=== PATIENT | female | born 1955 | race Caucasian/White ===

== ENCOUNTER → 2017-02-08 | Outpatient (CLI) | payer OTHER ==
--- NOTE | 2017-02-11 13:07 | MM ---
Reason for exam: screening (asymptomatic). Last mammogram was performed 2 years and 4 months ago. History: Patient is postmenopausal. Physical Findings: A clinical breast exam by your physician is recommended on an annual basis and results should be correlated with mammographic findings. MG Screening Mammo w CAD Bilateral CC and MLO view(s) were taken. Prior study comparison: October 16, 2014, mammogram, performed at [facility]. There are scattered fibroglandular densities. Benign calcifications in the right breast. There is no discrete abnormality. ASSESSMENT: Benign, BI-RAD 2 RECOMMENDATION: Routine screening mammogram of both breasts in 1 year.
== END ==
LOC: RADMAMWWP 14:27
PROVIDERS: ATTEND Family Medicine
DX: Z12.31 Encounter for screening mammogram for malignant neoplasm of breast (principal)

== ENCOUNTER → 2018-02-10 | Outpatient (CLI) | payer OTHER ==
--- NOTE | 2018-02-13 11:09 | MM ---
Reason for exam: screening (asymptomatic). Last mammogram was performed 1 year ago. History: Patient is postmenopausal. Physical Findings: A clinical breast exam by your physician is recommended on an annual basis and results should be correlated with mammographic findings. MG Screening Mammo w CAD Bilateral CC and MLO view(s) were taken. Prior study comparison: February 08, 2017, bilateral MG screening mammo w CAD. October 16, 2014, mammogram, performed at [facility]. There are scattered fibroglandular densities. Finding: There are typically benign round calcifications in the right breast. There is no discrete abnormality. ASSESSMENT: Benign, BI-RAD 2 RECOMMENDATION: Routine screening mammogram of both breasts in 1 year.
== END | disposition home or self-care (01) ==
LOC: RADMAMWWP 11:26
PROVIDERS: ATTEND Family Medicine
DX: Z12.31 Encounter for screening mammogram for malignant neoplasm of breast (principal)
CPT/HCPCS: 77067

== ENCOUNTER → 2018-08-23 | Outpatient (CLI) | payer MEDICARE, OTHER ==
--- NOTE | 2018-08-23 15:46 | US ---
EXAMINATION TYPE: US abdomen complete DATE OF EXAM: 08/23/2018 COMPARISON: NONE CLINICAL HISTORY: 63-year-old female R10.9 ABD PAIN. Intermittent right flank discomfort x couple mon ths TECHNIQUE: Multiple sonographic images of the abdomen are obtained. FINDINGS: EXAM MEASUREMENTS: Liver Length: 13.6 cm Gallbladder Wall: 0.2 cm CBD: 0.3 cm Spleen: 8.6 cm Right Kidney: 10.1 x 4.9 x 4.7 cm Left Kidney: 11.4 x 4.8 x 4.6 cm Pancreas: visualized portions wnl, the pancreatic tail is obscured by overlying midline bowel gas Liver: Coarsened appearance which may be technical. No focal lesion seen. Gallbladder: 0.4cm adherent hyperechoic focus along anterior wall, probable polyp. No abnormal gallb ladder distention, wall thickening, or pericholecystic fluid. Evidence for sonographic Chatterjee's sign: no CBD: visualized portions wnl, limited by overlying bowel gas Spleen: Detailed assessment limited by overlying bowel gas Right Kidney: Moderate hydronephrosis Left Kidney: wnl Upper IVC: wnl Abd Aorta: wnl IMPRESSION: 1. Moderate right-sided hydronephrosis. Etiology and duration uncertain based on this exam. Consider further CT evaluation. 2. Findings suggest a 4 mm gallbladder wall polyp. Six-month follow-up gallbladder ultrasound to luz maria enriquez.
--- NOTE | 2018-08-23 15:49 | US ---
EXAMINATION TYPE: US pelvic complete DATE OF EXAM: 08/23/2018 COMPARISON: NONE CLINICAL HISTORY: 63-year-old female R10.9 ABD PAIN. Intermittent right flank discomfort x couple mon ths, 2, para 1, 1 TECHNIQUE: Transabdominal sonographic images of the pelvis were acquired. Transvaginal sonographic images were medically necessary to better assess the following anatomy: uterus and ovaries Date of LMP: 15 years ago FINDINGS: EXAM MEASUREMENTS: Uterus: 5.0 x 3.4 x 4.1 cm Endometrial Stripe: 0.4 cm Right Ovary: not seen Left Ovary: not seen 1. Uterus: retroverted 2. Endometrium: wnl 3. Right Ovary: not seen due to overlying bowel gas 4. Left Ovary: not seen due to overlying bowel gas 5. Bilateral Adnexa: wnl 6. Posterior cul-de-sac: wnl IMPRESSION: Retroverted uterus. Endometrial stripe of 4 mm which is normal for a postmenopausal female. Neither o vary could be visualized. No pelvic free fluid. Note that this exam does not assess the bladder.
== END | disposition home or self-care (01) ==
LOC: RADUSWWP 09:19
PROVIDERS: ATTEND Family Medicine
DX: N13.30 Unspecified hydronephrosis (principal); N85.4 Malposition of uterus
CPT/HCPCS: 76700; 76830; 76856

== ENCOUNTER → 2018-09-29 | Outpatient (CLI) | payer MEDICARE, OTHER ==
--- NOTE | 2018-09-29 16:51 | BD ---
EXAMINATION TYPE: Axial Bone Density DATE OF EXAM: 09/29/2018 COMPARISON: NONE CLINICAL HISTORY: Height: 64.5 Weight: 138.6 FRAX RISK QUESTIONS: Alcohol (3 or more units per day): no Family History (Parent hip fracture): no Glucocorticoids (More than 3mos): no (Ex: prednisone, prednisolone, methylprednisolone, dexamethasone, and hydrocortisone). History of Fracture in Adulthood: no Secondary Osteoporosis: 1. Type 1 Diabetes: no 2. Hyperthyroidism: no 3. Menopause before 45: no 4. Malnutrition: no 5. Chronic liver disease: no Rheumatoid Arthritis: no Current Tobacco Use: yes RISK FACTORS HISTORY OF: Family History of Osteoporosis: no Active: yes Diet low in dairy products/other sources of calcium: no Postmenopausal woman: age 53 Lost more than 2 inches in height since high school: no MEDICATIONS: metformin, lipitor, eye vitamin drops Additional History: EXAM MEASUREMENTS: Bone mineral densitometry was performed using the PenBlade System. Bone mineral density as measured about the Lumbar spine is: ----- L1-L4(G/cm2): 1.217 T Score Values are as follows: ----- L2: -0.9 ----- L3: 2.8 ----- L4: 1.6 ----- L1-L4: 0.4 Bone mineral density : baseline Bone mineral density about the R hip (g/cm2): 0.857 Bone mineral density about the L hip (g/cm2): 0.913 T Score values are as follows: -----R Neck: -1.3 -----L Neck: -0.9 -----R Total: -0.9 -----L Total: -0.9 Bone mineral density : baseline IMPRESSION: Osteopenia (T Score between -2.5 and -1). There is slightly increased risk of fracture and the patient may be considered for treatment. Re-Screen 2-5 years. NOTE: T-SCORE=SD OF THE YOUNG ADULT MEAN.
== END | disposition home or self-care (01) ==
LOC: RADBDWWP 16:03
PROVIDERS: ATTEND Family Medicine
DX: M85.851 Other specified disorders of bone density and structure, right thigh (principal)
CPT/HCPCS: 77080

== ENCOUNTER → 2019-02-16 | Outpatient (CLI) | payer MEDICARE, OTHER ==
--- NOTE | 2019-02-20 14:13 | MM ---
Reason for exam: screening (asymptomatic). Last mammogram was performed 1 year ago. History: Patient is postmenopausal. Cyst aspiration of the right breast. Physical Findings: A clinical breast exam by your physician is recommended on an annual basis and results should be correlated with mammographic findings. MG Screening Mammo w CAD Bilateral CC and MLO view(s) were taken. Prior study comparison: February 10, 2018, bilateral MG screening mammo w CAD. February 08, 2017, bilateral MG screening mammo w CAD. There are scattered fibroglandular densities. Finding: There is a 7 mm equal density (isodense), obscured mass in the subareolar position of the right breast. ASSESSMENT: Incomplete: need additional imaging evaluation, BI-RAD 0 RECOMMENDATION: Special view mammogram of the right breast. If lesion persists on supplemental views, image directed ultrasound is recommended. [facility] will attempt to contact patient to return for supplemental views and ultrasound if indicated.
== END ==
LOC: RADMAMWWP 13:42
PROVIDERS: ATTEND Family Medicine
DX: Z12.31 Encounter for screening mammogram for malignant neoplasm of breast (principal)
CPT/HCPCS: 77067

== ENCOUNTER → 2019-02-22 | Outpatient (CLI) | payer MEDICARE, OTHER ==
--- NOTE | 2019-02-22 10:05 | US ---
EXAMINATION TYPE: US abdomen complete DATE OF EXAM: 02/22/2019 COMPARISON: Abdominal ultrasound dated 08/23/2018 CLINICAL HISTORY: K82.4 Cholesterolosis of Gallbladder. GB polyp EXAM MEASUREMENTS: Liver Length: 14.8 cm Gallbladder Wall: 0.2 cm CHD: 0.2 cm Spleen: 9.0 cm Right Kidney: 10.2 x 4.4 x 4.8 cm Left Kidney: 11.4 x 5.4 x 4.7 cm Pancreas: wnl as visualized Liver: Unremarkable Gallbladder: lesion seen adjacent to wall- 0.4 x 0.4 cm Evidence for sonographic Chatterjee's sign: neg CBD: Obscured by overlying bowel gas CHD: wnl Spleen: wnl Right Kidney: Persistent moderate hydronephrosis is seen on the prior Left Kidney: wnl Upper IVC: wnl Abd Aorta: no AAA visualized The liver is homogenous. The intrahepatic portion of the IVC and proximal abdominal aorta are within normal limits. There is no evidence of cholelithiasis. Common bile duct is unremarkable. The visu alized portions of the pancreas are homogenous. The spleen is unremarkable. No renal lesions are se en. IMPRESSION: 1. Persistent moderate right-sided hydronephrosis unchanged from 2018. Chronic ureteropelvic junction stricture is possible although CT urogram could assess for any other downstream obstructing process such as less likely neoplasm. 2. Unchanged 4 mm gallbladder polyp. Annual surveillance is recommended for polyps of the size.
== END | disposition home or self-care (01) ==
LOC: RADUSWWP 09:11
PROVIDERS: ATTEND Family Medicine
DX: N13.30 Unspecified hydronephrosis (principal); K82.4 Cholesterolosis of gallbladder
CPT/HCPCS: 76700

== ENCOUNTER → 2019-02-28 | Outpatient (CLI) | payer MEDICARE, OTHER ==
--- NOTE | 2019-03-01 09:18 | MM ---
Reason for exam: additional evaluation requested from abnormal screening. Last mammogram was performed less than 1 month ago. History: Patient is postmenopausal. Cyst aspiration of the right breast. Physical Findings: Nurse did not find any significant physical abnormalities on exam. MG 3D Work Up W/Cad RT Spot compression CC, spot compression MLO, and LM view(s) were taken of the right breast. Prior study comparison: February 16, 2019, bilateral MG screening mammo w CAD. February 10, 2018, bilateral MG screening mammo w CAD. There are scattered fibroglandular densities. Finding: There is a persistent equal density (isodense), circumscribed round mass located 2 cm from the skin in the lower inner quadrant, subareolar position of the right breast. These results were verbally communicated with the patient and result sheet given to the patient on 02/28/19. ASSESSMENT: Incomplete: need additional imaging evaluation, BI-RAD 0 RECOMMENDATION: Ultrasound of the right breast.
--- NOTE | 2019-03-01 09:20 | USB ---
Reason for exam: additional evaluation requested from abnormal screening. History: Patient is postmenopausal. Cyst aspiration of the right breast. US Breast Workup Limited RT Right limited breast ultrasound including focal area of concern, retroareolar and axilla demonstrates a 0.3 x 0.9 x 0.3cm oval, irregular, hypoechoic lesion at 8 o'clock, mammographic correlation. These results were verbally communicated with the patient and result sheet given to the patient on 02/28/19. ASSESSMENT: Suspicious, BI-RAD 4 RECOMMENDATION: Ultrasound core biopsy of the right breast. Called Dr. Amaya with mammographic findings and has scheduled an appointment for the patient for 03/30/19 at 3:[address] Han. Patient requested to only schedule consult at this time. PRELIMINARY REPORT CALLED AND FAXED TO DR. HAN ON 03/01/19.
== END | disposition home or self-care (01) ==
LOC: RADMAMWWP 14:11
PROVIDERS: ATTEND Family Medicine
DX: R92.8 Other abnormal and inconclusive findings on diagnostic imaging of breast (principal)
CPT/HCPCS: 77065; 76642; G0279; 77061

== ENCOUNTER → 2019-03-30 | Outpatient (CLI) | payer MEDICARE, OTHER ==
[2019-03-30 15:24] VITALS: BP 148/73; PULSE 75; RESP 16; TEMP 98.2; BMI 21.7
--- NOTE | 2019-03-30 16:26 | P.GSHP ---
History of Present Illness H&P Date: 03/30/19 Chief Complaint: abnormal mammogram and ultraound of the right breast The patient was noted on a screening mammogram to have an area of concern in the right breast, diagnostic mammogram and ultrasound also revealed an area for which biopsy recommended. This was done on 02-28-19. The patient does not feel anything of concern. No hsitory of trauma or infection to the breast. The patient had a breast procedure about 20 years ago, unsure of the side or of what was done. Family History: 1. brother: kidney cancer Hormonal History: menarche: 12 , 1AB, first at 18, breat fed: no menopause: 48 BCP: no hormones: none Past Surgical History: 1. open heart at the age of 6, uncertain what was done 2. breast procedure uncertain what done or which side 3. left arm ? cause Medical History: 1. Diabetes Type 2 2. arthritis Social History: smoke:1/2 PPD 40 years alcohol: none drugs:none - Constitutional Constitutional: Denies chills, Denies fever - EENT Comment: wears glasses Eyes: denies blurred vision, denies pain Ears: bilateral: decreased hearing, deny: tinnitus Ears, nose, mouth and throat: Denies headache, Denies sore throat - Breasts Breasts: bilateral: as per HPI - Cardiovascular Comment: open heart surgery as a child Cardiovascular: Denies chest pain, Denies shortness of breath - Respiratory Comment: smoker - Gastrointestinal Comment: colonoscopy in the past Gastrointestinal: Reports constipation, Denies abdominal pain, Denies diarrhea, Denies nausea, Denies vomiting - Genitourinary (Female) Genitourinary: Denies dysuria, Denies hematuria - Menstruation Menstruation: Reports postmenopausal - Musculoskeletal Comment: arthritis - Integumentary Integumentary: Denies pruritus, Denies rash - Neurological Neurological: Denies numbness, Denies weakness - Psychiatric Psychiatric: Denies anxiety, Denies depression - Endocrine Comment: diabetes - Hematologic/Lymphatic Comment: none - Allergic/Immunologic Allergic/Immunologic: Reports as per HPI Past Medical History Past Medical History: Diabetes Mellitus, GERD/Reflux, Skin Disorder Additional Past Medical History / Comment(s): hx heart murmer as child, allergy induced asthma, constipation,Pompholyx (eczema), hx kidney stones History of Any Multi-Drug Resistant Organisms: None Reported Past Surgical History: Tonsillectomy Additional Past Surgical History / Comment(s): open heart surgery at age 6, Past Anesthesia/Blood Transfusion Reactions: Motion Sickness Past Psychological History: No Psychological Hx Reported Smoking Status: Current every day smoker Past Alcohol Use History: None Reported Past Drug Use History: None Reported - Past Family History Brother(s) Family Medical History: Cancer Medications and Allergies Home Medications Medication Instructions Recorded Confirmed Type Multivitamins, Thera [Theragran] 1 each PO DAILY 10/14/15 03/30/19 History metFORMIN HCL [Glucophage] 500 mg PO BID 10/14/15 03/30/19 History Latanoprost Ophth [Xalatan 0.005%] 1 drops BOTH EYES HS 03/30/19 03/30/19 History Vit C/E/Zn/Coppr/Lutein/Zeaxan 1 each PO 03/30/19 History [Preservision Areds 2 Softgel] Allergies Allergy/AdvReac Type Severity Reaction Status Date / Time tetracycline Allergy Vomiting Verified 03/30/19 15:25 Surgical - Exam Vital Signs Temp Pulse Resp BP Pulse Ox 98.2 F 75 16 148/73 100 03/30/19 15:19 03/30/19 15:19 03/30/19 15:19 03/30/19 15:19 03/30/19 15:19 BMI 21.8 - General well developed, well nourished, no distress - Eyes normal ocular movement - ENT no hearing loss, no congestion - Neck no masses, trachea midline - Respiratory normal respiratory effort, clear to auscultation - Cardiovascular Rhythm: regular Heart Sounds: normal: S1, S2 - Abdomen Abdomen: soft, non tender, no guarding, no rigid, no rebound - Integumentary normal turgor - Neurologic no disoriented, no combative - Musculoskeletal normal gait, normal posture - Psychiatric oriented to time, oriented to person, oriented to place, speech is normal, memory intact breast exam: right breast: no dominate masses of concern, no infection, fibrocystic changes on multipositional exam right axilla: no adenopathy of concern, ptotic left breast: no dominate masses of concern, no infection, fibrocystic changes on multipositional exam, ptotic left axilla: no adenopathy of concern Results mammogram reviewed Assessment and Plan Assessment: Impression: 1. abnormal mammogram 2. abnormal ultrasound 3. asthma 4. smoker 5. arthritis 6. family history of cancer 7. diabetes Risk and benefits of core biopsy discussed with the patient and she wishes to proceed. Plan: 1. ultrasound guided core biopsy of the right breast 2. follow one week after core biopsy 3. medical managment of medical conditions CC: Dr. Amaya
== END ==
LOC: WWCWWP 14:37
PROVIDERS: ATTEND Surgery
DX: Z53.9 Procedure and treatment not carried out, unspecified reason (principal)

== ENCOUNTER 2020-01-29 12:01 | Emergency (ER) | payer MEDICARE, OTHER ==
[2020-01-29 12:06] VITALS: RESP 18; TEMP 98.4
[2020-01-29] MEDS ORDERED: SODIUM CHLORIDE 0.9% 1,000 ML IV STA (12:18)
--- NOTE | 2020-01-29 12:37 | ED ---
General Adult HPI - General Chief complaint: Arrhythmia/Palpitations Stated complaint: Palpitations Time Seen by Provider: 01/29/20 12:09 Source: patient, EMS, RN notes reviewed, old records reviewed Mode of arrival: EMS Limitations: no limitations - History of Present Illness Initial comments: 64-year-old female presenting with intermittent palpitations. No associated pain. Patient does report some dyspnea associated with this. She feels that this could just be anxiety but wanted to be checked out. She reports a normal appetite, no nausea vomiting, no diarrhea, no fever, no URI symptoms. No history of arrhythmia. No history of CAD. - Related Data Home Medications Medication Instructions Recorded Confirmed Multivitamins, Thera [Theragran] 1 each PO DAILY 10/14/15 03/30/19 metFORMIN HCL [Glucophage] 500 mg PO BID 10/14/15 03/30/19 Latanoprost Ophth [Xalatan 0.005%] 1 drops BOTH EYES HS 03/30/19 03/30/19 Vit C/E/Zn/Coppr/Lutein/Zeaxan 1 each PO 03/30/19 [Preservision Areds 2 Softgel] Allergies Allergy/AdvReac Type Severity Reaction Status Date / Time tetracycline Allergy Vomiting Verified 03/30/19 15:25 Review of Systems ROS Statement: Those systems with pertinent positive or pertinent negative responses have been documented in the HPI. ROS Other: All systems not noted in ROS Statement are negative. Past Medical History Past Medical History: Diabetes Mellitus, GERD/Reflux, Skin Disorder Additional Past Medical History / Comment(s): hx heart murmer as child, allergy induced asthma, constipation,Pompholyx (eczema), hx kidney stones History of Any Multi-Drug Resistant Organisms: None Reported Past Surgical History: Tonsillectomy Additional Past Surgical History / Comment(s): open heart surgery at age 6, Past Anesthesia/Blood Transfusion Reactions: Motion Sickness Past Psychological History: No Psychological Hx Reported Smoking Status: Current every day smoker Past Alcohol Use History: None Reported Past Drug Use History: None Reported - Past Family History Brother(s) Family Medical History: Cancer General Exam Limitations: no limitations General appearance: alert, in no apparent distress Head exam: Present: atraumatic, normocephalic Eye exam: Present: normal appearance, PERRL ENT exam: Present: normal exam Neck exam: Present: normal inspection. Absent: tenderness, meningismus Respiratory exam: Present: normal lung sounds bilaterally. Absent: respiratory distress, wheezes Cardiovascular Exam: Present: regular rate, normal rhythm GI/Abdominal exam: Present: soft. Absent: distended, tenderness, guarding, rebound Extremities exam: Present: normal inspection, normal capillary refill. Absent: pedal edema Neurological exam: Present: alert, oriented X3, CN II-XII intact. Absent: motor sensory deficit Psychiatric exam: Present: normal affect, normal mood Skin exam: Present: warm, dry, intact Course Vital Signs 01/29/20 01/29/20 12:02 12:06 Temperature 98.4 F Pulse Rate 70 Pulse Rate [ 72 Single End Sewer ] Respiratory 18 Rate Blood Pressure 173/84 O2 Sat by Pulse 98 Oximetry EKG Findings - EKG Comments: EKG Findings:: EKG: Normal sinus rhythm, rate of 72, no ST segment elevation, AR interval 150, QRS duration 78, QTC 431 artifact in V5 Medical Decision Making - Medical Decision Making 64-year-old female presenting with palpitations. EKG showing sinus rhythm. Symptoms have been ongoing, workup reveals chest x-ray which is negative for acute cardiac primary disease. She has normal CBC, she has normal electrolytes but does have an elevated blood sugar and states her sugars have been running high recently. Urinalysis is positive both for glucose and ketones. She does not have profound acidosis. I suspect the degree of dehydration secondary to increased diuresis may be contributing to dehydration and palpitations. We discussed increase oral hydration and improved sugar control. She will follow- up with her primary care physician if palpitations persist she will ask about possible monitor. She will return with worsening or changing symptoms. - Lab Data Result diagrams: 01/29/20 12:04 01/29/20 12:04 Lab Results 01/29/20 01/29/20 01/29/20 Range/Units 12:04 12:04 12:04 WBC 6.0 (3.8-10.6) k/uL RBC 4.05 (3.80-5.40) m/uL Hgb 12.8 (11.4-16.0) gm/dL Hct 37.5 (34.0-46.0) % MCV 92.5 (80.0-100.0) fL MCH 31.7 (25.0-35.0) pg MCHC 34.3 (31.0-37.0) g/dL RDW 12.3 (11.5-15.5) % Plt Count 232 (150-450) k/uL Neutrophils % 69 % Lymphocytes % 20 % Monocytes % 6 % Eosinophils % 3 % Basophils % 0 % Neutrophils # 4.1 (1.3-7.7) k/uL Lymphocytes # 1.2 (1.0-4.8) k/uL Monocytes # 0.3 (0-1.0) k/uL Eosinophils # 0.2 (0-0.7) k/uL Basophils # 0.0 (0-0.2) k/uL PT 9.5 (9.0-12.0) sec INR 0.9 (<1.2) APTT 22.1 (22.0-30.0) sec Sodium 136 L (137-145) mmol/L Potassium 4.3 (3.5-5.1) mmol/L Chloride 106 (98-107) mmol/L Carbon Dioxide 21 L (22-30) mmol/L Anion Gap 9 mmol/L BUN 24 H (7-17) mg/dL Creatinine 0.74 (0.52-1.04) mg/dL Est GFR (CKD-EPI)AfAm >90 (>60 ml/min/1.73 sqM) Est GFR (CKD-EPI)NonAf 85 (>60 ml/min/1.73 sqM) Glucose 215 H (74-99) mg/dL Calcium 9.4 (8.4-10.2) mg/dL Magnesium 2.0 (1.6-2.3) mg/dL Total Bilirubin 0.3 (0.2-1.3) mg/dL AST 20 (14-36) U/L ALT 16 (4-34) U/L Alkaline Phosphatase 58 (38-126) U/L Troponin I (0.000-0.034) ng/mL Total Protein 6.5 (6.3-8.2) g/dL Albumin 4.0 (3.5-5.0) g/dL Urine Color Urine Appearance (Clear) Urine pH (5.0-8.0) Ur Specific [place] (1.001-1.035) Urine Protein (Negative) Urine Glucose (UA) (Negative) Urine Ketones (Negative) Urine Blood (Negative) Urine Nitrite (Negative) Urine Bilirubin (Negative) Urine Urobilinogen (<2.0) mg/dL Ur Leukocyte Esterase (Negative) 01/29/20 01/29/20 Range/Units 12:04 12:23 WBC (3.8-10.6) k/uL RBC (3.80-5.40) m/uL Hgb (11.4-16.0) gm/dL Hct (34.0-46.0) % MCV (80.0-100.0) fL MCH (25.0-35.0) pg MCHC (31.0-37.0) g/dL RDW (11.5-15.5) % Plt Count (150-450) k/uL Neutrophils % % Lymphocytes % % Monocytes % % Eosinophils % % Basophils % % Neutrophils # (1.3-7.7) k/uL Lymphocytes # (1.0-4.8) k/uL Monocytes # (0-1.0) k/uL Eosinophils # (0-0.7) k/uL Basophils # (0-0.2) k/uL PT (9.0-12.0) sec INR (<1.2) APTT (22.0-30.0) sec Sodium (137-145) mmol/L Potassium (3.5-5.1) mmol/L Chloride (98-107) mmol/L Carbon Dioxide (22-30) mmol/L Anion Gap mmol/L BUN (7-17) mg/dL Creatinine (0.52-1.04) mg/dL Est GFR (CKD-EPI)AfAm (>60 ml/min/1.73 sqM) Est GFR (CKD-EPI)NonAf (>60 ml/min/1.73 sqM) Glucose (74-99) mg/dL Calcium (8.4-10.2) mg/dL Magnesium (1.6-2.3) mg/dL Total Bilirubin (0.2-1.3) mg/dL AST (14-36) U/L ALT (4-34) U/L Alkaline Phosphatase (38-126) U/L Troponin I <0.012 (0.000-0.034) ng/mL Total Protein (6.3-8.2) g/dL Albumin (3.5-5.0) g/dL Urine Color Yellow Urine Appearance Clear (Clear) Urine pH 8.0 (5.0-8.0) Ur Specific [place] 1.017 (1.001-1.035) Urine Protein Trace H (Negative) Urine Glucose (UA) 1+ H (Negative) Urine Ketones Trace H (Negative) Urine Blood Negative (Negative) Urine Nitrite Negative (Negative) Urine Bilirubin Negative (Negative) Urine Urobilinogen <2.0 (<2.0) mg/dL Ur Leukocyte Esterase Negative (Negative) Disposition Clinical Impression: Palpitations, Dehydration Disposition: HOME SELF-CARE Condition: Good Instructions (If sedation given, give patient instructions): Heart Palpitations (ED) Additional Instructions: Please increase hydration, particularly water. Please avoid sugary foods for improved blood sugars. Please follow up with her primary care physician if symptoms persist may require a autocutter on an outpatient basis. Is patient prescribed a controlled substance at d/c from ED?: No Referrals: Tanner Amaya DO [Primary Care Provider] - 1-2 days Time of Disposition: 13:51
[2020-01-29 12:43] LABS: INR 0.9 (<1.2); Partial Thromboplastin Time 22.1 sec (22.0-30.0); Prothrombin Time 9.5 sec (9.0-12.0)
[2020-01-29 12:44] LABS: Basophils % (A) 0 %; Eosinophils # (A) 0.2 k/uL (0-0.7); Eosinophils % (A) 3 %; HCT 37.5 % (34.0-46.0); HGB 12.8 gm/dL (11.4-16.0); Lymphocytes # (A) 1.2 k/uL (1.0-4.8); Lymphocytes % (A) 20 %; MCH 31.7 pg (25.0-35.0); MCHC 34.3 g/dL (31.0-37.0); MCV 92.5 fL (80.0-100.0); Mean Platelet Volume 8.4; Monocytes # (A) 0.3 k/uL (0-1.0); Monocytes % (A) 6 %; Neutrophils # (A) 4.1 k/uL (1.3-7.7); Neutrophils % (A) 69 %; Platelet Count 232 k/uL (150-450); RBC 4.05 m/uL (3.80-5.40); RDW 12.3 % (11.5-15.5)
--- NOTE | 2020-01-29 12:44 | XR ---
EXAMINATION TYPE: XR chest 2V DATE OF EXAM: 01/29/2020 COMPARISON: None INDICATION: Dysrhythmia TECHNIQUE: Frontal and lateral views of the chest are obtained. FINDINGS: The heart size is normal. The pulmonary vasculature is normal. The lungs are clear. IMPRESSION: 1. No acute pulmonary process.
[2020-01-29 12:46] LABS: Appearance,Urine Clear (Clear); Bilirubin,Urine Negative (Negative); Blood,Urine Negative (Negative); Color,Urine Yellow; Glucose,Urine (UA) 1+ (Negative); Ketones,Urine Trace (Negative); Leukocyte Esterase,Urine Negative (Negative); Nitrite,Urine Negative (Negative); Protein,Urine Trace (Negative); Specific Gravity,Urine 1.017 (1.001-1.035); Urobilinogen,Urine <2.0 mg/dL (<2.0)
[2020-01-29 12:47] LABS: ALT 16 U/L (4-34); AST 20 U/L (14-36); African American GFR (CKD) >90 (>60 ml/min/1.73 sqM); Alkaline Phosphatase 58 U/L (38-126); Anion Gap 9 mmol/L; Blood Urea Nitrogen 24 mg/dL (7-17); Calcium 9.4 mg/dL (8.4-10.2); Carbon Dioxide 21 mmol/L (22-30); Chloride 106 mmol/L (98-107); Glucose 215 mg/dL (74-99); Non-African American GFR(CKD) 85 (>60 ml/min/1.73 sqM); Potassium 4.3 mmol/L (3.5-5.1); Sodium 136 mmol/L (137-145); Total Bilirubin 0.3 mg/dL (0.2-1.3); Total Protein 6.5 g/dL (6.3-8.2)
[2020-01-29 14:07] VITALS: BP 123/76; PULSE 78
== END 2020-01-29 14:00 | disposition home or self-care (01) ==
LOC: EC 12:01
DX: E86.0 Dehydration (principal); R00.2 Palpitations; R06.00 Dyspnea, unspecified; E11.9 Type 2 diabetes mellitus without complications; F17.200 Nicotine dependence, unspecified, uncomplicated; Z79.84 Long term (current) use of oral hypoglycemic drugs; Z88.1 Allergy status to other antibiotic agents
CPT/HCPCS: 36415; 71046; 80053; 81003; 83735; 84484; 85025; 85610; 85730; 93005; 96360; 96361; 99285

== ENCOUNTER 2021-06-11 10:31 | Observation (INO) | payer MEDICARE, OTHER ==
[2021-06-11] MEDS ORDERED: SODIUM CHLORIDE 0.9% 1,000 ML IV STA (11:08)
--- NOTE | 2021-06-11 11:18 | ED ---
General Adult HPI - General Chief complaint: Fall Stated complaint: Fall/Dizziness Time Seen by Provider: 06/11/21 10:37 Source: patient, EMS Mode of arrival: EMS Limitations: no limitations - History of Present Illness Initial comments: 66-year-old female with a past medical history of diabetes mellitus, GERD presents to the emergency room for a chief complaint of fall. Patient reports that she was drinking her morning coffee with her neighbors. Patient states she went from sitting to standing position. She suddenly felt lightheaded and fell. She had the back of her head on the ground. She did not lose consciousness. She does not take blood thinners. Patient is in a mild headache. She denies any chest pain shortness of breath or diaphoresis during this episode. Denies nausea vomiting.Patient has no other complaints at this time including shortness of breath, chest pain, abdominal pain, nausea or vomiting, headache, or visual changes. - Related Data Home Medications Medication Instructions Recorded Confirmed metFORMIN HCL [Glucophage] 500 mg PO BID-W/MEALS 10/14/15 06/11/21 Latanoprost Ophth [Xalatan 0.005%] 1 drop BOTH EYES HS 03/30/19 06/11/21 Vit C/E/Zn/Coppr/Lutein/Zeaxan 1 cap PO BID 03/30/19 06/11/21 [Preservision Areds 2 Softgel] Simvastatin [Zocor] 20 mg PO HS 06/11/21 06/11/21 Allergies Allergy/AdvReac Type Severity Reaction Status Date / Time tetracycline AdvReac Vomiting Verified 06/11/21 12:13 Review of Systems ROS Statement: Those systems with pertinent positive or pertinent negative responses have been documented in the HPI. ROS Other: All systems not noted in ROS Statement are negative. Past Medical History Past Medical History: Diabetes Mellitus, GERD/Reflux, Skin Disorder Additional Past Medical History / Comment(s): hx heart murmer as child, allergy induced asthma, constipation,Pompholyx (eczema), hx kidney stones History of Any Multi-Drug Resistant Organisms: None Reported Past Surgical History: Tonsillectomy Additional Past Surgical History / Comment(s): open heart surgery at age 6, Past Anesthesia/Blood Transfusion Reactions: Motion Sickness Past Psychological History: No Psychological Hx Reported Past Alcohol Use History: None Reported Past Drug Use History: None Reported - Past Family History Brother(s) Family Medical History: Cancer General Exam Limitations: no limitations General appearance: alert, in no apparent distress Head exam: Absent: atraumatic (Hematoma noted to the occipital scalp) Eye exam: Present: normal appearance, PERRL, EOMI. Absent: scleral icterus, conjunctival injection ENT exam: Present: normal exam, mucous membranes moist Neck exam: Present: normal inspection, full ROM. Absent: tenderness Respiratory exam: Present: normal lung sounds bilaterally. Absent: respiratory distress, wheezes Cardiovascular Exam: Present: regular rate, normal rhythm, normal heart sounds GI/Abdominal exam: Present: soft, normal bowel sounds. Absent: distended, tenderness Course Vital Signs 06/11/21 06/11/21 06/11/21 10:32 11:15 11:36 Temperature 98.7 F Pulse Rate 75 73 Pulse Rate [ 70 Prone] Pulse Rate [ 72 Sitting] Pulse Rate [ 68 Standing] Respiratory 18 18 Rate Blood Pressure 148/72 120/63 Blood Pressure 133/65 [Right Arm Sitting] Blood Pressure 120/63 [Right Arm Standing] Blood Pressure 137/67 [Right Arm] O2 Sat by Pulse 98 99 100 Oximetry 06/11/21 13:30 Temperature Pulse Rate 72 Pulse Rate [ Prone] Pulse Rate [ Sitting] Pulse Rate [ Standing] Respiratory 18 Rate Blood Pressure 129/73 Blood Pressure [Right Arm Sitting] Blood Pressure [Right Arm Standing] Blood Pressure [Right Arm] O2 Sat by Pulse 100 Oximetry EKG Findings - EKG Comments: EKG Findings:: Normal sinus rhythm, ventricular rate 70, VA interval 124, QTC 421 Medical Decision Making - Medical Decision Making Vitals are stable. Patient presents for near syncopal episode with head injury. CT was obtained which showed no acute fracture of the cervical spine or acute intracranial hemorrhage in the brain. CBC is unremarkable. CMP did show some evidence of dehydration with a BUN to creatinine ratio of 27. EKG nonischemic. Troponin is negative. Case was discussed with Dr. Mitchell. At this time we are recommending admission to the hospital as patient is 66 and has not had any cardiac workup patient is agreeable to this. - Lab Data Result diagrams: 06/11/21 11:28 06/11/21 11:28 Lab Results 06/11/21 06/11/21 06/11/21 Range/Units 11:28 11:28 11:28 WBC 6.1 (3.8-10.6) k/uL RBC 4.08 (3.80-5.40) m/uL Hgb 13.3 (11.4-16.0) gm/dL Hct 38.0 (34.0-46.0) % MCV 93.1 (80.0-100.0) fL MCH 32.7 (25.0-35.0) pg MCHC 35.1 (31.0-37.0) g/dL RDW 12.7 (11.5-15.5) % Plt Count 298 (150-450) k/uL MPV 8.3 Neutrophils % 55 % Lymphocytes % 29 % Monocytes % 9 % Eosinophils % 5 % Basophils % 1 % Neutrophils # 3.3 (1.3-7.7) k/uL Lymphocytes # 1.8 (1.0-4.8) k/uL Monocytes # 0.5 (0-1.0) k/uL Eosinophils # 0.3 (0-0.7) k/uL Basophils # 0.0 (0-0.2) k/uL PT 9.6 (9.0-12.0) sec INR 0.9 (<1.2) APTT 21.6 L (22.0-30.0) sec Sodium 136 L (137-145) mmol/L Potassium 4.3 (3.5-5.1) mmol/L Chloride 102 (98-107) mmol/L Carbon Dioxide 27 (22-30) mmol/L Anion Gap 7 mmol/L BUN 21 H (7-17) mg/dL Creatinine 0.77 (0.52-1.04) mg/dL Est GFR (CKD-EPI)AfAm >90 (>60 ml/min/1.73 sqM) Est GFR (CKD-EPI)NonAf 80 (>60 ml/min/1.73 sqM) Glucose 155 H (74-99) mg/dL Calcium 9.7 (8.4-10.2) mg/dL Magnesium 2.1 (1.6-2.3) mg/dL Total Bilirubin 0.2 (0.2-1.3) mg/dL AST 21 (14-36) U/L ALT 14 (4-34) U/L Alkaline Phosphatase 52 (38-126) U/L Troponin I (0.000-0.034) ng/mL Total Protein 6.2 L (6.3-8.2) g/dL Albumin 3.9 (3.5-5.0) g/dL 06/11/21 Range/Units 11:28 WBC (3.8-10.6) k/uL RBC (3.80-5.40) m/uL Hgb (11.4-16.0) gm/dL Hct (34.0-46.0) % MCV (80.0-100.0) fL MCH (25.0-35.0) pg MCHC (31.0-37.0) g/dL RDW (11.5-15.5) % Plt Count (150-450) k/uL MPV Neutrophils % % Lymphocytes % % Monocytes % % Eosinophils % % Basophils % % Neutrophils # (1.3-7.7) k/uL Lymphocytes # (1.0-4.8) k/uL Monocytes # (0-1.0) k/uL Eosinophils # (0-0.7) k/uL Basophils # (0-0.2) k/uL PT (9.0-12.0) sec INR (<1.2) APTT (22.0-30.0) sec Sodium (137-145) mmol/L Potassium (3.5-5.1) mmol/L Chloride (98-107) mmol/L Carbon Dioxide (22-30) mmol/L Anion Gap mmol/L BUN (7-17) mg/dL Creatinine (0.52-1.04) mg/dL Est GFR (CKD-EPI)AfAm (>60 ml/min/1.73 sqM) Est GFR (CKD-EPI)NonAf (>60 ml/min/1.73 sqM) Glucose (74-99) mg/dL Calcium (8.4-10.2) mg/dL Magnesium (1.6-2.3) mg/dL Total Bilirubin (0.2-1.3) mg/dL AST (14-36) U/L ALT (4-34) U/L Alkaline Phosphatase (38-126) U/L Troponin I <0.012 (0.000-0.034) ng/mL Total Protein (6.3-8.2) g/dL Albumin (3.5-5.0) g/dL Disposition Clinical Impression: Near syncope, Fall Disposition: ADMITTED IP TO THIS HOSP Is patient prescribed a controlled substance at d/c from ED?: No Referrals: Tanner Amaya DO [Primary Care Provider] - 1-2 days Time of Disposition: 13:42
[2021-06-11 11:46] LABS: Basophils % (A) 1 %; Eosinophils # (A) 0.3 k/uL (0-0.7); Eosinophils % (A) 5 %; HGB 13.3 gm/dL (11.4-16.0); Lymphocytes # (A) 1.8 k/uL (1.0-4.8); Lymphocytes % (A) 29 %; MCH 32.7 pg (25.0-35.0); MCHC 35.1 g/dL (31.0-37.0); MCV 93.1 fL (80.0-100.0); Mean Platelet Volume 8.3; Monocytes # (A) 0.5 k/uL (0-1.0); Monocytes % (A) 9 %; Neutrophils # (A) 3.3 k/uL (1.3-7.7); Neutrophils % (A) 55 %; Platelet Count 298 k/uL (150-450); RBC 4.08 m/uL (3.80-5.40); RDW 12.7 % (11.5-15.5); WBC 6.1 k/uL (3.8-10.6)
[2021-06-11 12:00] LABS: ALT 14 U/L (4-34); AST 21 U/L (14-36); African American GFR (CKD) >90 (>60 ml/min/1.73 sqM); Albumin 3.9 g/dL (3.5-5.0); Alkaline Phosphatase 52 U/L (38-126); Anion Gap 7 mmol/L; Blood Urea Nitrogen 21 mg/dL (7-17); Calcium 9.7 mg/dL (8.4-10.2); Carbon Dioxide 27 mmol/L (22-30); Chloride 102 mmol/L (98-107); Glucose 155 mg/dL (74-99); Magnesium 2.1 mg/dL (1.6-2.3); Non-African American GFR(CKD) 80 (>60 ml/min/1.73 sqM); Potassium 4.3 mmol/L (3.5-5.1); Sodium 136 mmol/L (137-145); Total Bilirubin 0.2 mg/dL (0.2-1.3); Total Protein 6.2 g/dL (6.3-8.2)
[2021-06-11 12:04] LABS: INR 0.9 (<1.2); Prothrombin Time 9.6 sec (9.0-12.0)
[2021-06-11 12:07] LABS: Partial Thromboplastin Time 21.6 sec (22.0-30.0)
--- NOTE | 2021-06-11 12:37 | XR ---
EXAMINATION TYPE: XR chest 2V DATE OF EXAM: 06/11/2021 COMPARISON: 01/29/2020 HISTORY: 66-year-old female with syncope, dizziness and fall TECHNIQUE: AP and lateral views FINDINGS: The cardiomediastinal silhouette, aorta, and pulmonary vasculature are within normal limits. Lungs an d pleural spaces are clear. S-shaped scoliosis of the thoracal lumbar spine. IMPRESSION: No acute cardiopulmonary process.
--- NOTE | 2021-06-11 12:40 | CT ---
EXAMINATION TYPE: CT brain tristan corado con DATE OF EXAM: 06/11/2021 COMPARISON: NONE HISTORY: syncopal episode with headache and neck pain CT DLP: 1203.5 mGycm. Automated Exposure Control for Dose Reduction was Utilized. TECHNIQUE: CT scan of the head and cervical spine are performed without contrast. FINDINGS: There is no acute intracranial hemorrhage or midline shift identified. There is mild vent ricular and sulcal prominence. Mild to moderate areas of low attenuation throughout the white matter are present. The calvarium is intact. Mild to moderate mucosal thickening involving ethmoid sinuses b ilaterally. No suspicious opacification mastoid air cells. The globes are intact bilaterally Cervical spine is visualized in its entirety from C1 through upper thoracic levels and demonstrates s traightened alignment without evidence of acute fracture or dislocation. Prevertebral soft tissue ap pears within normal limits. The C1-C2 articulation is within normal limits on the coronal images. V ertebral body heights are maintained. Moderate multilevel disc space narrowing and spurring C4-C5 thr ough C6-C7 levels. Posterior spur disc complexes efface the anterior thecal sac at C4-C5 and C5-C6 le vels. Review of axial images shows left-sided uncovertebral facet degenerative change at C3-C4 level. There are several greater than 1 cm thyroid nodules. Lung apices show no pneumothorax. Nonemergent t hyroid ultrasound follow-up advised to further assess if this is not known finding. IMPRESSION: 1. There is no acute fracture or dislocation evident in the cervical spine. 2. No acute intracranial hemorrhage or midline shift is seen.
[2021-06-11] MEDS ORDERED: NALOXONE 0.4 MG/ML 1 ML VIAL IV PRN (13:38)
[2021-06-11] MEDS: SODIUM CHLORIDE 0.9% 1,000 ML IV SCH ×2 (14:18→20:31)
[2021-06-11] MEDS ORDERED: NICOTINE 14MG/24HR PATCH TRANSDERM STA (15:00)
[2021-06-11 17:05] LABS: Glucose,Whole Blood 210 mg/dL (75-99)
[2021-06-11] MEDS: metFORMIN 500 MG TAB PO SCH (18:26)
[2021-06-11 20:00] LABS: Glucose,Whole Blood 151 mg/dL (75-99)
[2021-06-11] MEDS: LATANOPROST 0.005% OPHTH DROPS 2.5 ML BTL BOTH EYES SCH (20:57)
[2021-06-11] MEDS: VIT A,C & E-LUTEIN-MINERALS 1 EACH TAB PO SCH (20:57)
[2021-06-11] MEDS: ATORVASTATIN 10 MG TAB PO SCH (20:57)
--- NOTE | 2021-06-11 22:56 | P.HPIM ---
History of Present Illness H&P Date: 06/11/21 Chief Complaint: Fell down History of presenting complaint: This is a pleasant 66-year-old patient who follows a Dr. Amaya. Chronic stable medical conditions include diabetes, GERD, ALLERGY-induced asthma, kidney stones. Lives in an apartment. Has underlying cognitive impairment. Per ER patient was drinking her morning coffee with the neighbors and she went from a sitting to standing position felt lightheaded and fell. She hit the back of the ground. Did not lose consciousness. Had a slight headache. No chest pain or shortness of breath. No fever no chills. Patient did not remember distorting and had to remind her about the same. She does state that she gets dizzy when she stands up. She was borderline orthostatic in the ER. Review of systems: GEN.: Tired EYES: None HEENT: Slight headache NECK: None RESPIRATORY: None CARDIOVASCULAR: None GASTROINTESTINAL: None GENITOURINARY: None MUSCULOSKELETAL: Some joint pains LYMPHATICS: None HEMATOLOGICAL: None PSYCHIATRY: Forgetful] NEUROLOGICAL: No focal weakness INVESTIGATIONS, reviewed in the clinical context: White count 6.1 hemoglobin 13.3 platelets 298 potassium 4.3 BUN 21-0.77. Glucose 155 Troponin I less than 0.012 EKG tracing personally reviewed by me-normal sinus rhythm Head cervical spine CT: Negative for any fracture or dislocation DJD and disc disease. Chest x-ray film personally reviewed by me-lung cochran clear Assessment and plan: -This is a patient gets episodes of dizziness on standing up. Had an episode of passing out while she was done to stand up from a sitting position. Was having a morning coffee. Borderline orthostatic in the ER. Has no focal symptoms. No post-episode confusion. -Orthostatic Give IV fluids. KHAI stockings. Increase salt diet -Cognitive impairment. We'll check patient's TSH, B12. We will do the full Montral cognitive assessment test. -Diabetes mellitus type 2, on oral hypoglycemic Resume metformin. Follow Accu-Cheks. -Hyperlipidemia Zocor 20 mg daily at bedtime IV fluids. Follow Accu-Cheks. We will follow Montral cognitive assessment test. Check patient's TSH and B12. Lovenox for DVT prophylaxis. Fall precautions Past Medical History Past Medical History: Diabetes Mellitus, GERD/Reflux, Skin Disorder Additional Past Medical History / Comment(s): hx heart murmer as child, allergy induced asthma, constipation,Pompholyx (eczema), hx kidney stones History of Any Multi-Drug Resistant Organisms: None Reported Past Surgical History: Tonsillectomy Additional Past Surgical History / Comment(s): open heart surgery at age 6, Past Anesthesia/Blood Transfusion Reactions: Motion Sickness Past Psychological History: No Psychological Hx Reported Past Alcohol Use History: None Reported Past Drug Use History: None Reported - Past Family History Brother(s) Family Medical History: Cancer Medications and Allergies Home Medications Medication Instructions Recorded Confirmed Type metFORMIN HCL [Glucophage] 500 mg PO BID-W/MEALS 10/14/15 06/11/21 History Latanoprost Ophth [Xalatan 0.005%] 1 drop BOTH EYES HS 03/30/19 06/11/21 History Vit C/E/Zn/Coppr/Lutein/Zeaxan 1 cap PO BID 03/30/19 06/11/21 History [Preservision Areds 2 Softgel] Simvastatin [Zocor] 20 mg PO HS 06/11/21 06/11/21 History Allergies Allergy/AdvReac Type Severity Reaction Status Date / Time tetracycline AdvReac Vomiting Verified 06/11/21 12:13 Physical Exam Vitals: Vital Signs Temp Pulse Pulse Pulse Pulse Resp BP 06/11/21 22:40 06/11/21 20:00 97.7 F 69 16 06/11/21 18:39 06/11/21 17:00 98.2 F 75 16 06/11/21 16:51 98.7 F 80 18 133/64 06/11/21 15:12 80 18 133/64 06/11/21 13:30 72 18 129/73 06/11/21 11:36 73 18 120/63 06/11/21 11:15 70 72 68 06/11/21 10:32 98.7 F 75 18 148/72 BP BP BP BP Pulse Ox 06/11/21 22:40 158/68 142/60 150/62 06/11/21 20:00 163/67 06/11/21 18:39 150/66 06/11/21 17:00 170/78 98 06/11/21 16:51 98 06/11/21 15:12 98 06/11/21 13:30 100 06/11/21 11:36 100 06/11/21 11:15 133/65 120/63 137/67 99 06/11/21 10:32 98 Intake and Output 06/11/21 06/11/21 06/11/21 06:59 14:59 22:59 Intake Total 200 Balance 200 Intake: IV 20 Invasive Line 1 20 Oral 180 Other: # Voids 3 Weight 55.338 kg 56.8 kg Results CBC & Chem 7: 06/11/21 11:28 06/11/21 11:28 Labs: Abnormal Lab Results - Last 24 Hours (Table) 06/11/21 06/11/21 06/11/21 Range/Units 11:28 11:28 17:04 APTT 21.6 L (22.0-30.0) sec Sodium 136 L (137-145) mmol/L BUN 21 H (7-17) mg/dL Glucose 155 H (74-99) mg/dL POC Glucose (mg/dL) 210 H (75-99) mg/dL Total Protein 6.2 L (6.3-8.2) g/dL 06/11/21 Range/Units 19:58 APTT (22.0-30.0) sec Sodium (137-145) mmol/L BUN (7-17) mg/dL Glucose (74-99) mg/dL POC Glucose (mg/dL) 151 H (75-99) mg/dL Total Protein (6.3-8.2) g/dL
[2021-06-12] MEDS: ENOXAPARIN 40 MG/0.4 ML SYRINGE SQ SCH ×2 (00:40→09:39)
[2021-06-12] MEDS: SODIUM CHLORIDE 0.9% 1,000 ML IV SCH ×2 (04:00→09:40)
[2021-06-12 06:23] LABS: Glucose,Whole Blood 140 mg/dL (75-99)
[2021-06-12] MEDS: INSULIN ASPART (NovoLOG) 100 UNIT/ML VIAL SQ SCH ×4 (06:54→21:02)
[2021-06-12] MEDS: metFORMIN 500 MG TAB PO SCH ×2 (06:54→16:59)
[2021-06-12] MEDS ORDERED: NICOTINE 14MG/24HR PATCH TRANSDERM SCH (09:00)
[2021-06-12] MEDS: VIT A,C & E-LUTEIN-MINERALS 1 EACH TAB PO SCH ×2 (09:39→21:00)
--- NOTE | 2021-06-12 11:27 | P.CRDCN ---
History of Present Illness History of present illness: HISTORY OF PRESENTING ILLNESS This is a pleasant 66-year-old female past medical history significant for diabetes mellitus, chronic nicotine dependence, congenital heart disease st atus post open heart surgery at the age of 6, dementia (according to the daughter) and dyslipidemia. The patient is somewhat of a poor historian. She does recall that she had surgery on her heart. A posterior approach at the age of 6 but she does not recall what it was for. She describes it as she had a tube that didn't close. Possibly PDA. She does not follow the office regularly with a lieutenant ballistics. We have been asked to see in consultation for near syncope. He does not recall the events surrounding what occurred yesterday. She states she was told that she fell. She does not recall anything prior. She does not recall which she did yesterday. She does not recall what happened thereafter. According to ER documentation she was having coffee with a neighbor. Upon standing she felt lightheaded and fell. No clear LOC. She did hit her head in the fall. On arrival to ER she was complaining of a headache. She is seen and examined sitting up in no acute distress. She currently denies symptoms of chest pain, shortness of breath, dizziness or palpitations. She states she has never passed out in the past. She is somewhat irritated and does not want to be in the hospital. She states "I simply fell". She is requesting discharge and does not want any further testing. DIAGNOSTICS EKG reveals sinus mechanism heart rate of [address] or T wave abnormalities noted. Telemetry tracings indicate sinus rhythm with no acute arrhythmia or significant pauses. Chest xray negative for an acute cardiopulmonary process. CT of the brain and cervical spine was negative for any acute fracture, dislocation or intracranial hemorrhage. Laboratory reviewed, CBC unremarkable, sodium 136, potassium 4.3, magnesium 2.1, creatinine 0.77 and troponin negative 1. Current cardiac medications include simvastatin 20 mg daily. REVIEW OF SYSTEMS At the time of my exam: CONSTITUTIONAL: Denies fever or chills. CARDIOVASCULAR: Denies chest pain, shortness of breath, orthopnea, PND or pal pitations. RESPIRATORY: Denies cough. GASTROINTESTINAL: Denies abdominal pain, diarrhea, constipation, nausea or vomiting. MUSCULOSKELETAL: Denies myalgias. NEUROLOGIC: Denies numbness, tingling, headache or weakness. ENDOCRINE: Denies fatigue, weight change, polydipsia or polyurina. GENITOURINARY: Denies burning, hematuria or urgency with micturation. HEMATOLOGIC: Denies history of anemia or bleeding. PHYSICAL EXAMINATION Blood pressure 154/64 heart rate 67 afebrile and maintaining oxygen saturation on room air. CONSTITUTIONAL: No apparent distress. HEENT: Head is normocephalic. Pupils are equal, round. Sclerae anicteric. Mucous membranes of the mouth are moist. No JVD. No carotid bruit. CHEST EXAMINATION: Lungs are clear to auscultation. No chest wall tenderness is noted on palpation or with deep breathing. HEART EXAMINATION: Regular rate and rhythm. S1, S2 heard. No murmurs, gallops or rub. ABDOMEN: Soft, nontender. EXTREMITIES: 2+ peripheral pulses, no lower extremity edema and no calf tenderness. NEUROLOGIC EXAMINATION: Patient is awake, alert and oriented x3. ASSESSMENT Fall Memory loss with verbalized history of dementia Diabetes mellitus Congenital heart disease, details unknown Dyslipidemia Chronic nicotine dependence PLAN Orthostatic vital signs unremarkable. IV fluids given in ER and ongoing maintenance. No evidence of significant arrhythmia on telemetry. Obtain 2D echocardiogram to assess cardiac structure and function. Smoking cessation recommended. If echo is normal, we will follow along as needed. Thank you kindly for this consultation. Nurse Practitioner note has been reviewed, I agree with a documented findings and plan of care. Patient was seen and examined. Past Medical History Past Medical History: Diabetes Mellitus, GERD/Reflux, Skin Disorder Additional Past Medical History / Comment(s): hx heart murmer as child, allergy induced asthma, constipation,Pompholyx (eczema), hx kidney stones History of Any Multi-Drug Resistant Organisms: None Reported Past Surgical History: Tonsillectomy Additional Past Surgical History / Comment(s): open heart surgery at age 6, cataract surgery Past Anesthesia/Blood Transfusion Reactions: Motion Sickness Past Psychological History: No Psychological Hx Reported Smoking Status: Current every day smoker Past Alcohol Use History: None Reported Past Drug Use History: None Reported - Past Family History Brother(s) Family Medical History: Cancer, Dementia, Diabetes Mellitus Mother Family Medical History: Dementia, Diabetes Mellitus Medications and Allergies Home Medications Medication Instructions Recorded Confirmed Type metFORMIN HCL [Glucophage] 500 mg PO BID-W/MEALS 10/14/15 06/11/21 History Latanoprost Ophth [Xalatan 0.005%] 1 drop BOTH EYES HS 03/30/19 06/11/21 History Vit C/E/Zn/Coppr/Lutein/Zeaxan 1 cap PO BID 03/30/19 06/11/21 History [Preservision Areds 2 Softgel] Simvastatin [Zocor] 20 mg PO HS 06/11/21 06/11/21 History Allergies Allergy/AdvReac Type Severity Reaction Status Date / Time tetracycline AdvReac Vomiting Verified 06/11/21 12:13 Physical Exam Vitals: Vital Signs Temp Pulse Pulse Pulse Pulse Resp BP 06/12/21 07:44 18 06/12/21 07:00 97.2 F L 67 18 06/12/21 04:02 97.9 F 73 18 06/12/21 02:00 98.2 F 73 16 06/11/21 22:40 06/11/21 20:00 97.7 F 69 16 06/11/21 18:39 06/11/21 17:00 98.2 F 75 16 06/11/21 16:51 98.7 F 80 18 133/64 06/11/21 15:12 80 18 133/64 06/11/21 13:30 72 18 129/73 06/11/21 11:36 73 18 120/63 06/11/21 11:15 70 72 68 06/11/21 10:32 98.7 F 75 18 148/72 BP BP BP BP Pulse Ox 06/12/21 07:44 06/12/21 07:00 154/64 99 06/12/21 04:02 139/54 98 06/12/21 02:00 166/73 98 06/11/21 22:40 158/68 142/60 150/62 06/11/21 20:00 163/67 06/11/21 18:39 150/66 06/11/21 17:00 170/78 98 06/11/21 16:51 98 06/11/21 15:12 98 06/11/21 13:30 100 06/11/21 11:36 100 06/11/21 11:15 133/65 120/63 137/67 99 06/11/21 10:32 98 Intake and Output 06/11/21 06/12/21 06/12/21 22:59 06:59 14:59 Intake Total 200 10 Balance 200 10 Intake: IV 20 10 Invasive Line 1 20 10 Oral 180 Other: Voiding Method Toilet Toilet Toilet # Voids 3 2 2 Weight 56.8 kg 56.8 kg Results 06/11/21 11:28 06/11/21 11:28 Cardiac Enzymes 06/11/21 06/11/21 Range/Units 11:28 11:28 AST 21 (14-36) U/L Troponin I <0.012 (0.000-0.034) ng/mL Coagulation 06/11/21 Range/Units 11:28 PT 9.6 (9.0-12.0) sec APTT 21.6 L (22.0-30.0) sec CBC 06/11/21 Range/Units 11:28 WBC 6.1 (3.8-10.6) k/uL RBC 4.08 (3.80-5.40) m/uL Hgb 13.3 (11.4-16.0) gm/dL Hct 38.0 (34.0-46.0) % Plt Count 298 (150-450) k/uL Comprehensive Metabolic Panel 06/11/21 Range/Units 11:28 Sodium 136 L (137-145) mmol/L Potassium 4.3 (3.5-5.1) mmol/L Chloride 102 (98-107) mmol/L Carbon Dioxide 27 (22-30) mmol/L BUN 21 H (7-17) mg/dL Creatinine 0.77 (0.52-1.04) mg/dL Glucose 155 H (74-99) mg/dL Calcium 9.7 (8.4-10.2) mg/dL AST 21 (14-36) U/L ALT 14 (4-34) U/L Alkaline Phosphatase 52 (38-126) U/L Total Protein 6.2 L (6.3-8.2) g/dL Albumin 3.9 (3.5-5.0) g/dL Current Medications Generic Name Dose Route Start Last Admin Trade Name Freq PRN Reason Stop Dose Admin Atorvastatin Calcium 10 mg 06/11/21 21:00 06/11/21 20:57 Atorvastatin 10 Mg Tab PO 10 mg HS GARCÍA Administration Enoxaparin Sodium 40 mg 06/11/21 22:15 06/12/21 00:40 Enoxaparin 40 Mg/0.4 Ml Syringe SQ Not Given DAILY [facility] Sodium Chloride 1,000 mls @ 130 mls/hr 06/11/21 13:45 06/12/21 04:00 Saline 0.9% IV 130 mls/hr .[id number] GARCÍA Administration Insulin Aspart 0 unit 06/12/21 07:30 06/12/21 06:54 Insulin Aspart (Novolog) 100 Unit/Ml Vial SQ 1 unit ACHS GARCÍA Administration Protocol Latanoprost 1 drops 06/11/21 21:00 06/11/21 20:57 Latanoprost 0.005% Ophth Drops 2.5 Ml Btl BOTH EYES 1 drops HS GARCÍA Administration Metformin HCl 500 mg 06/11/21 17:30 06/12/21 06:54 Metformin 500 Mg Tab PO 500 mg BID-W/MEALS GARCÍA Administration Multivitamins/Minerals 1 each 06/11/21 21:00 06/11/21 20:57 Vit A,C & O-Zhvsjp-Umkmktac 1 Each Tab PO 1 each BID GARCÍA Administration Naloxone HCl 0.2 mg 06/11/21 13:38 Naloxone 0.4 Mg/Ml 1 Ml Vial IV Q2M PRN Opioid Reversal Intake and Output 06/11/21 06/12/21 06/12/21 22:59 06:59 14:59 Intake Total 200 10 Balance 200 10 Intake: IV 20 10 Invasive Line 1 20 10 Oral 180 Other: Voiding Method Toilet Toilet Toilet # Voids 3 2 2 Weight 56.8 kg 56.8 kg 06/11/21 11:28 06/11/21 11:28
[2021-06-12 11:46] LABS: Glucose,Whole Blood 132 mg/dL (75-99)
--- NOTE | 2021-06-12 13:01 | ECHOF ---
Referral Reason:possible syncope MEASUREMENTS -------- HEIGHT: 165.1 cm WEIGHT: 56.7 kg BP: 154/64 RVIDd: 2.8 cm (< 3.3) IVSd: 1.0 cm (0.6 - 1.1) LVIDd: 3.9 cm (3.9 - 5.3) LVPWd: 1.1 cm (0.6 - 1.1) IVSs: 1.6 cm LVIDs: 2.8 cm LVPWs: 1.6 cm LA Diam: 3.2 cm (2.7 - 3.8) LAESV Index (A-L): 19.74 ml/m Ao Diam: 2.6 cm (2.0 - 3.7) AV Cusp: 1.4 cm (1.5 - 2.6) MV EXCURSION: 13.275 mm (> 18.000) MV EF SLOPE: 108 mm/s (70 - 150) EPSS: 0.5 cm MV E Kushal: 1.05 m/s MV DecT: 209 ms MV A Kushal: 0.98 m/s MV E/A Ratio: 1.07 RAP: 5.00 mmHg RVSP: 37.00 mmHg FINDINGS -------- Sinus rhythm. This was a technically good study. The left ventricular size is normal. Left ventricular wall thickness is normal. Overall left vent ricular systolic function is normal with, an EF between 60 - 65 %. The right ventricle is normal in size. Normal LA size by volume 22+/-6 ml/m2. The right atrium is normal in size. Interatrial and interventricular septum intact. The aortic valve is trileaflet, and appears structurally normal. No aortic stenosis or regurgitation. There is trace to mild mitral regurgitation. Mild tricuspid regurgitation present. There is mild pulmonary hypertension. The right ventricular systolic pressure, as measured by Doppler, is 37.00mmHg. Trace/mild (physiologic) pulmonic regurgitation. The aortic root size is normal. Normal inferior vena cava with normal inspiratory collapse consistent with estimated right atrial pre ssure of 5 mmHg. There is no pericardial effusion. CONCLUSIONS -------- 1. The left ventricular size is normal. 2. Left ventricular wall thickness is normal. 3. Overall left ventricular systolic function is normal with, an EF between 60 - 65 %. 4. The aortic valve is trileaflet, and appears structurally normal. No aortic stenosis or regurgitati on. 5. There is trace to mild mitral regurgitation. 6. Mild tricuspid regurgitation present. 7. There is mild pulmonary hypertension. 8. The right ventricular systolic pressure, as measured by Doppler, is 37.00mmHg. 9. Trace/mild (physiologic) pulmonic regurgitation. 10. There is no pericardial effusion. SEWING SUPERVISOR: Cyndy Cunningham RDCS
[2021-06-12 14:31] VITALS: BMI 20.8
--- NOTE | 2021-06-12 16:09 | P.PN ---
Progress Note - Text Progress Note Date: 06/12/21 Chief Complaint: Fell down History of presenting complaint: This is a pleasant 66-year-old patient who follows a Dr. Amaya. Chronic stable medical conditions include diabetes, GERD, ALLERGY-induced asthma, kidney stones. Lives in an apartment. Has underlying cognitive impairment. Per ER patient was drinking her morning coffee with the neighbors and she went from a sitting to standing position felt lightheaded and fell. She hit the back of the ground. Did not lose consciousness. Had a slight headache. No chest pain or shortness of breath. No fever no chills. Patient did not remember presenting events and had to remind her about the same. She does state that she gets dizzy when she stands up. She was borderline orthostatic in the ER. 06/12/2021: Patient been up to the bathroom. No new issues. No arrhythmia on telemetry. Daughter at the bedside. Pending full cognitive impairment assessment. Labs are pending. Oral intake good. Care was discussed withdaughter Review of systems: Was done for constitutional, cardiovascular, GI, pulmonary. relevant finding as above Active Medications Atorvastatin Calcium (Atorvastatin 10 Mg Tab) 10 mg PO [facility] Last Admin: 06/11/21 20:57 Dose: 10 mg Documented by: Enoxaparin Sodium (Enoxaparin 40 Mg/0.4 Ml Syringe) 40 mg SQ DAILY [facility] Last Admin: 06/12/21 09:39 Dose: 40 mg Documented by: Sodium Chloride (Saline 0.9%) 1,000 mls @ 130 mls/hr IV .Q7H42M [facility] Last Admin: 06/12/21 09:40 Dose: 130 mls/hr Documented by: Insulin Aspart (Insulin Aspart (Novolog) 100 Unit/Ml Vial) 0 unit SQ [facility]; Protocol Last Admin: 06/12/21 11:54 Dose: Not Given Documented by: Latanoprost (Latanoprost 0.005% Ophth Drops 2.5 Ml Btl) 1 drops BOTH EYES [facility] Last Admin: 06/11/21 20:57 Dose: 1 drops Documented by: Metformin HCl (Metformin 500 Mg Tab) 500 mg PO BID-W/MEALS [facility] Last Admin: 06/12/21 06:54 Dose: 500 mg Documented by: Multivitamins/Minerals (Vit A,C & V-Qetzxh-Nvfnajaa 1 Each Tab) 1 each PO BID [facility] Last Admin: 06/12/21 09:39 Dose: 1 each Documented by: Naloxone HCl (Naloxone 0.4 Mg/Ml 1 Ml Vial) 0.2 mg IV Q2M PRN PRN Reason: Opioid Reversal Physical examination: VITAL SIGNS: 97.2, 67, 18, 154/64, 99% room air GENERAL: Sitting up, comfortable EYES: Pupils equal. Conjunctiva normal. NECK: JVD not raised; masses not palpable. HEART: First and second heart sounds are normal; no edema. LUNGS: Respiratory rate normal; clear to auscultation. ABDOMEN: Soft, nontender, liver spleen not palpable, no masses palpable. PSYCH: Patient able to answer simple questions. Unable to recall initially the reason she came in. Mood affect normall. MUSCULAR skeletal: Evidence of OA INVESTIGATIONS, reviewed in the clinical context: June 12: Accu-Cheks 140, 132 White count 6.1 hemoglobin 13.3 platelets 298 potassium 4.3 BUN 21-0.77. Glucose 155 Troponin I less than 0.012 EKG tracing personally reviewed by me-normal sinus rhythm Head cervical spine CT: Negative for any fracture or dislocation DJD and disc disease. Chest x-ray film personally reviewed by me-lung cochran clear Assessment and plan: -Orthostatic hypertension KHAI stockings. Given IV fluids. -Essential hypertension Start lisinopril 10 mg daily at bedtime -Cognitive impairment. Pending TSH, B12. Full cognitive assessment to be done by speech today. -Diabetes mellitus type 2, on oral hypoglycemic Resume metformin. Follow Accu-Cheks. -Hyperlipidemia Zocor 20 mg daily at bedtime. Pending lipid panel Care was discussed with the patient. And the daughter the bedside. Started lisinopril.
[2021-06-12 16:55] LABS: Glucose,Whole Blood 179 mg/dL (75-99)
[2021-06-12 20:15] LABS: Glucose,Whole Blood 142 mg/dL (75-99)
[2021-06-12] MEDS: ATORVASTATIN 10 MG TAB PO SCH (21:00)
[2021-06-12] MEDS: LATANOPROST 0.005% OPHTH DROPS 2.5 ML BTL BOTH EYES SCH (21:00)
[2021-06-12] MEDS ORDERED: LISINOPRIL-HCTZ 10-12.5 MG 1 EACH TAB PO SCH (21:00)
[2021-06-12 21:43] LABS: Chol/HDL Ratio 3.51; LDL Cholesterol,Calculated 122.4 mg/dL (0.0-131.0); VLDL Calculation 20.6 mg/dL (5.00-40.00)
[2021-06-13 04:00] VITALS: RESP 18
[2021-06-13 06:16] LABS: Glucose,Whole Blood 157 mg/dL (75-99)
[2021-06-13] MEDS: INSULIN ASPART (NovoLOG) 100 UNIT/ML VIAL SQ SCH ×2 (06:46→11:32)
[2021-06-13] MEDS: metFORMIN 500 MG TAB PO SCH (06:46)
[2021-06-13 08:37] VITALS: BP 116/66; TEMP 98.1
[2021-06-13 08:39] VITALS: PULSE 79
[2021-06-13] MEDS: ENOXAPARIN 40 MG/0.4 ML SYRINGE SQ SCH (10:09)
[2021-06-13] MEDS: VIT A,C & E-LUTEIN-MINERALS 1 EACH TAB PO SCH (10:10)
--- NOTE | 2021-06-13 10:48 | PN ---
PROGRESS NOTE Mrs. Ariza is a 66-year-old female who presented with dizziness, possible syncope. She has a history of congenital heart disease and prior surgery, probable PDA closure. She is feeling well this morning. She denies any dizziness. She denies any palpitation. On the monitor, she is in sinus mechanism. She underwent an echocardiogram yesterday that showed a preserved left ventricular size and systolic function with mild tricuspid regurgitation and mitral regurgitation with no evidence of shunting and right-side pressure of 37 mmHg. She continues to be at this time on Lipitor 10 mg daily, insulin, lisinopril HCT 10-12.5 mg daily, metformin. PHYSICAL EXAMINATION: Blood pressure running in the 160s with a heart rate in the 60s. Afebrile. LUNGS: Clear. Heart regular rate and rhythm S1, S2. No S3 with a systolic murmur. No diastolic murmur. ABDOMEN: Soft and nontender. EXTREMITIES: No edema. LAB DATA: Lab data revealed an LDL of 122 yesterday. Her cholesterol is 200. IMPRESSION: 1. Dizziness and possible syncope could be related to orthostatic hypotension. No evidence of malignant arrhythmia. 2. Prior congenital heart disease surgery, possible PDA closure. 3. History of early dementia. 4. Diabetes. 5. Hyperlipidemia. 6. History of chronic tobacco use. RECOMMENDATIONS: From the cardiac standpoint, I will continue present therapy. I will increase the dose of her atorvastatin. I would expect she should be able to be discharged home today and follow up with her primary care physician. We will see her on an as-needed basis. Please feel free to call us for any questions. MMODL / IJN: [id number] /
[2021-06-13 11:32] LABS: Glucose,Whole Blood 152 mg/dL (75-99)
[2021-06-13] MEDS ORDERED: ATORVASTATIN 20 MG TAB PO SCH (21:00)
--- NOTE | 2021-06-14 16:46 | P.DS ---
Providers Date of admission: 06/11/21 13:51 Expected date of discharge: 06/13/21 Attending physician: Jalil Mitchell Consults: 06/11/21 13:39 Consult Physician Routine Consulting Provider: [facility] Consult Reason/Comments: near syncope Do you want consulting provider notified?: Yes Primary care physician: [facility] Course: Chief Complaint: Fell down History of presenting complaint: This is a pleasant 66-year-old patient who follows a Dr. Amaya. Chronic stable medical conditions include diabetes, GERD, ALLERGY-induced asthma, kidney stones. Lives in an apartment. Has underlying cognitive impairment. Per ER patient was drinking her morning coffee with the neighbors and she went from a sitting to standing position felt lightheaded and fell. She hit the back of the ground. Did not lose consciousness. Had a slight headache. No chest pain or shortness of breath. No fever no chills. Patient did not remember presenting events and had to remind her about the same. She does state that she gets dizzy when she stands up. She was borderline orthostatic in the ER. 06/12/2021: Patient been up to the bathroom. No new issues. No arrhythmia on telemetry. Daughter at the bedside. Pending full cognitive impairment assessment. Labs are pending. Oral intake good. Care was discussed withdaughter 06/13/2021. Patient is stable. Discussed with the daughter about results of the cognitive impairment. Patient underwent [facility] examination 2. Her score was 17. Less than 20s considered more highly correlated with dementia. Patient to follow-up with neurology as outpatient. KHAI stockings for orthostatic. Questions answered. Discussion and discharge planning more than 35 minutes Consultation: Dr. Morrissey from cardiology Physical examination: VITAL SIGNS: 98.1, 65, 18, 116/76, 99% room air GENERAL: Sitting up, comfortable EYES: Pupils equal. Conjunctiva normal. NECK: JVD not raised; masses not palpable. HEART: First and second heart sounds are normal; no edema. LUNGS: Respiratory rate normal; clear to auscultation. ABDOMEN: Soft, nontender, liver spleen not palpable, no masses palpable. PSYCH: Patient able to answer simple questions. Unable to recall initially the reason she came in. Mood affect normall. MUSCULAR skeletal: Evidence of OA INVESTIGATIONS, reviewed in the clinical context: [facility] cognitive examination . Her score was 17. Less than 20s considered more highly correlated with dementia. LDL 122 June 12: Accu-Cheks 140, 132 White count 6.1 hemoglobin 13.3 platelets 298 potassium 4.3 BUN 21-0.77. Glucose 155 Troponin I less than 0.012 EKG tracing personally reviewed by me-normal sinus rhythm Head cervical spine CT: Negative for any fracture or dislocation DJD and disc disease. Chest x-ray film personally reviewed by me-lung cochran clear Assessment and plan: -Orthostatic hypertension KHAI stockings. Given IV fluids. -Essential hypertension Zestoretic 10/12.5 daily at bedtime -Mild-moderate Cognitive impairment. [facility]UMS cognitive examination . Her score was 17. Less than 20s considered more highly correlated with dementia. -Diabetes mellitus type 2, on oral hypoglycemic Resume metformin. Follow Accu-Cheks. -Hyperlipidemia Zocor 20 mg daily at bedtime. Pending lipid panel Follow-up: Patient to have B12/TSH to be done as outpatient. Hospital lab draw was not done. Disposition: Home Plan - Discharge Summary Discharge Rx Participant: No New Discharge Prescriptions: New Aspirin 81 mg PO DAILY #30 tab Atorvastatin [Lipitor] 20 mg PO HS #30 tab Lisinopril-Hctz 10-12.5 mg [Zestoretic 10-12.5] 1 each PO HS #30 tab Continue metFORMIN HCL [Glucophage] 500 mg PO BID-W/MEALS Latanoprost Ophth [Xalatan 0.005%] 1 drop BOTH EYES HS Vit C/E/Zn/Coppr/Lutein/Zeaxan [Preservision Areds 2 Softgel] 1 cap PO BID Discontinued Simvastatin [Zocor] 20 mg PO HS Discharge Medication List metFORMIN HCL [Glucophage] 500 mg PO BID-W/MEALS 10/14/15 [History] Latanoprost Ophth [Xalatan 0.005%] 1 drop BOTH EYES HS 03/30/19 [History] Vit C/E/Zn/Coppr/Lutein/Zeaxan [Preservision Areds 2 Softgel] 1 cap PO BID 03/30/19 [History] Aspirin 81 mg PO DAILY #30 tab 06/13/21 [Rx] Atorvastatin [Lipitor] 20 mg PO HS #30 tab 06/13/21 [Rx] Lisinopril-Hctz 10-12.5 mg [Zestoretic 10-12.5] 1 each PO HS #30 tab 06/13/21 [Rx] Follow up Appointment(s)/Referral(s): Tanner Amaya DO [Primary Care Provider] - 1-2 days Jose M Yadav DO [STAFF PHYSICIAN] - 1 Week (Neurology.) Patient Instructions/Handouts: Near Syncope (GEN) Discharge Disposition: HOME SELF-CARE
== END 2021-06-13 12:04 | disposition home or self-care (01) ==
LOC: EC 10:31 → 1SOBS 13:51 → 3SCARD 15:58
PROVIDERS: ADMIT Hospitalist; ATTEND Hospitalist
DX: R42 Dizziness and giddiness (principal); I10 Essential (primary) hypertension; E11.9 Type 2 diabetes mellitus without complications; E78.5 Hyperlipidemia, unspecified; E86.0 Dehydration; F03.90 Unspecified dementia, unspecified severity, without behavioral disturbance, psychotic disturbance, mood disturbance, and anxiety; F17.200 Nicotine dependence, unspecified, uncomplicated; J45.909 Unspecified asthma, uncomplicated; K21.9 Gastro-esophageal reflux disease without esophagitis; S09.90XA Unspecified injury of head, initial encounter; Z79.84 Long term (current) use of oral hypoglycemic drugs; Z79.899 Other long term (current) drug therapy
CPT/HCPCS: 96361 ×2; 96372 ×2; 96360; 99285; 36415; 93005; 93306; 92523; 80061; 80053; 84443; 82607; 83735; 84484; 85025; 85610; 85730; 83036; 71046; 72125; 70450; G0378 ×4; S4990; J1650 ×2

== ENCOUNTER → 2021-08-28 | Outpatient (CLI) | payer MEDICARE, OTHER ==
--- NOTE | 2021-08-28 09:01 | US ---
EXAMINATION TYPE: US carotid duplex BILAT DATE OF EXAM: 08/28/2021 COMPARISON: NONE CLINICAL HISTORY: G31.84 MILD COGNITIVE IMPAIRMENT. No HTN. No hx tia. EXAM MEASUREMENTS: RIGHT: Peak Systolic Velocity (PSV) cm/sec ----- Right CCA: 78.7 ----- Right ICA: 108.2 ----- Right ECA: 65.9 ICA/CCA ratio: 1.4 RIGHT: End Diastole cm/sec ----- Right CCA: 18.2 ----- Right ICA: 39.6 ----- Right ECA: 0.0 LEFT: Peak Systolic Velocity (PSV) cm/sec ----- Left CCA: 67.3 ----- Left ICA: 83.2 ----- Left ECA: 96.4 ICA/CCA ratio: 1.2 LEFT: End Diastole cm/sec ----- Left CCA: 19.7 ----- Left ICA: 17.1 ----- Left ECA: 11.8 VERTEBRALS (direction of flow): Right Vertebral: Antegrade Left Vertebral: Antegrade Rhythm: Arrhythmia Plaque seen in bilateral CCA and bulbs. No elevated velocities. No significant stenosis. Grayscale images show fairly moderate plaque bilaterally greatest at carotid bulb level. The velocity measurements and ratios remain within normal limits bilaterally. IMPRESSION: Moderate atherosclerotic changes without hemodynamically significant stenosis seen in ei ther internal carotid artery. Criteria for Assigning % of Stenosis / Diameter reduction (Estimation based on the indirect measurements of the internal carotid artery velocities (ICA PSV). 1. Normal (no stenosis)=ICA PSV < 125 cm/s: ratio < 2.0: ICA EDV<40 cm/s. 2. Less than 50% stenosis=ICA PSV < 125 cm/s: ratio < 2.0: ICA EDV<40 cm/s. 3. 50 to 69% stenosis=ICA PSV of 125 to 230 cm/s: ration 2.0 ? 4.0: ICA EDV 40-100 cm/s. 4. Greater than 70% stenosis to near occlusion= ICA PSV > 230 cm/s: ratio > 4.0: ICA EDV > 100 cm/s. 5. Near occlusion= ICA PSV velocities may be low or undetectable: variable ratio and ICA EDV. 6. Total occlusion=unable to detect flow.
== END | disposition home or self-care (01) ==
LOC: RADUSWWP 07:04
PROVIDERS: ATTEND Psychiatry & Neurology Neurology
DX: G31.84 Mild cognitive impairment of uncertain or unknown etiology (principal)
CPT/HCPCS: 93880

== ENCOUNTER → 2021-08-28 | Outpatient (CLI) | payer MEDICARE, OTHER ==
--- NOTE | 2021-08-28 10:37 | MR ---
MR brain without contrast HISTORY: Mild cognitive impairment, G 31.84 Multiplanar multisequence imaging through the brain, correlation to CT brain dated 06/11/2021 Mild cortical atrophy is likely age-related. There is no restricted diffusion to suggest subacute isc hemia. The corpus callosum, pituitary, cervical medullary junction, cerebellopontine angles are sheree l. There are expected vascular flow voids. The orbits show symmetric appearance. There is no hemorrha ge or hydrocephalus. Within the periventricular and pericallosal, subcortical white matter there are confluent and scattered hyperintensities on inversion recovery T2-weighted sequences, approximately 5 0 lesions are present. Inflammatory changes present within the ethmoid air cells. IMPRESSION: Age-related changes of atrophy and probable chronic small vessel ischemia. Mild sinus dis ease.
== END ==
LOC: RADMRIMAIN 09:24
PROVIDERS: ATTEND Psychiatry & Neurology Neurology
DX: G31.84 Mild cognitive impairment of uncertain or unknown etiology (principal)
CPT/HCPCS: 70551

== ENCOUNTER → 2021-11-11 | Outpatient (CLI) | payer MEDICARE, OTHER ==
--- NOTE | 2021-11-12 12:32 | MM ---
Reason for exam: screening (asymptomatic). Last mammogram was performed 2 years and 8 months ago. History: Patient is postmenopausal. Cyst aspiration of the right breast. Physical Findings: A clinical breast exam by your physician is recommended on an annual basis and results should be correlated with mammographic findings. MG 3D Screening Mammo W/Cad Bilateral CC and MLO view(s) were taken. Prior study comparison: February 28, 2019, right breast MG 3d work up w/cad RT. February 16, 2019, bilateral MG screening mammo w CAD. The breast tissue is heterogeneously dense. This may lower the sensitivity of mammography. There are benign appearing round calcifications bilaterally. There is no discrete abnormality. ASSESSMENT: Benign, BI-RAD 2 RECOMMENDATION: Routine screening mammogram of both breasts in 1 year.
== END | disposition home or self-care (01) ==
LOC: RADMAMWWP 07:55
PROVIDERS: ATTEND Family Medicine
DX: Z12.31 Encounter for screening mammogram for malignant neoplasm of breast (principal)
CPT/HCPCS: 77063; 77067

== ENCOUNTER 2021-11-13 17:21 | Emergency (ER) | payer MEDICARE, OTHER ==
[2021-11-13] MEDS ORDERED: HYDROmorphone 0.5 MG/0.5 ML SYRINGE IVP STA (18:11)
[2021-11-13] MEDS ORDERED: ONDANSETRON 4 MG/2 ML VIAL IVP STA (18:11)
[2021-11-13] MEDS ORDERED: SODIUM CHLORIDE 0.9% 1,000 ML IV ONE (18:11)
[2021-11-13 18:46] LABS: Basophils % (A) 0 %; Eosinophils # (A) 0.3 k/uL (0-0.7); Eosinophils % (A) 3 %; Lymphocytes # (A) 1.3 k/uL (1.0-4.8); Lymphocytes % (A) 14 %; MCH 32.5 pg (25.0-35.0); MCHC 34.3 g/dL (31.0-37.0); MCV 94.7 fL (80.0-100.0); Mean Platelet Volume 8.5; Monocytes # (A) 0.5 k/uL (0-1.0); Monocytes % (A) 6 %; Neutrophils # (A) 6.9 k/uL (1.3-7.7); Neutrophils % (A) 75 %; Platelet Count 235 k/uL (150-450); RBC 4.01 m/uL (3.80-5.40); RDW 12.1 % (11.5-15.5); WBC 9.1 k/uL (3.8-10.6)
[2021-11-13 18:48] LABS: Appearance,Urine Clear (Clear); Bilirubin,Urine Negative (Negative); Blood,Urine Small (Negative); Color,Urine Yellow; Glucose,Urine (UA) Negative (Negative); Ketones,Urine Negative (Negative); Leukocyte Esterase,Urine Small (Negative); Mucus,Urine Rare /hpf; Nitrite,Urine Negative (Negative); Protein,Urine Negative (Negative); RBC,Urine 103 /hpf (0-5); Specific Gravity,Urine 1.015 (1.001-1.035); Urobilinogen,Urine <2.0 mg/dL (<2.0); WBC,Urine 8 /hpf (0-5)
[2021-11-13 18:55] LABS: ALT 17 U/L (4-34); AST 22 U/L (14-36); African American GFR (CKD) >90 (>60 ml/min/1.73 sqM); Albumin 4.3 g/dL (3.5-5.0); Alkaline Phosphatase 50 U/L (38-126); Anion Gap 9 mmol/L; Blood Urea Nitrogen 25 mg/dL (7-17); Calcium 10.2 mg/dL (8.4-10.2); Carbon Dioxide 22 mmol/L (22-30); Chloride 105 mmol/L (98-107); Glucose 129 mg/dL (74-99); Lipase 113 U/L (23-300); Non-African American GFR(CKD) 87 (>60 ml/min/1.73 sqM); Potassium 4.5 mmol/L (3.5-5.1); Sodium 136 mmol/L (137-145); Total Bilirubin 0.5 mg/dL (0.2-1.3); Total Protein 6.9 g/dL (6.3-8.2)
--- NOTE | 2021-11-13 19:30 | CT ---
EXAMINATION TYPE: CT abdomen pelvis wo con CT DLP: 413.3 mGycm, Automated exposure control for dose reduction was used. DATE OF EXAM: 11/13/2021 6:51 PM COMPARISON: None CLINICAL INDICATION:Female, 66 years old with history of Left flank pain. TECHNIQUE: Standard CT of the abdomen and pelvis without IV or oral contrast. Lack of IV or oral co ntrast limits evaluation of solid and hollow organ viscera. Coronal and sagittal reformats were perfo rmed. FINDINGS: LOWER CHEST: Unremarkable ABDOMEN LIVER: Unremarkable GALLBLADDER AND BILE DUCTS: Unremarkable. PANCREAS: Unremarkable. SPLEEN: Unremarkable. ADRENAL GLANDS: Unremarkable. KIDNEYS AND URETERS: Moderate dilation of the renal pelves bilaterally. Right kidney is asymmetricall y atrophic. The ureters are suboptimally visualized due to noncontrast exam without delayed imaging. PELVIS BLADDER: Incompletely distended but grossly unremarkable. REPRODUCTIVE: Unremarkable. ABDOMEN & PELVIS STOMACH AND BOWEL: There is a large stool burden throughout the colon. No evidence of bowel obstructi on. PERITONEUM: No evidence of pneumoperitoneum or free fluid. VASCULATURE: Moderate atherosclerotic calcifications are present throughout the abdominal aorta and i ts branches. MUSCULOSKELETAL: Moderate disc degeneration changes are present throughout the thoracolumbar spine. S coliosis apex L3. LYMPH NODES: No gross evidence for lymphadenopathy. SOFT TISSUE/ABDOMINAL WALL: Unremarkable IMPRESSION: 1. Large stool burden throughout the colon, correlate for constipation. 2. Bilateral renal pelvis dilation with asymmetric right kidney atrophy. This is a nonspecific findin g likely chronic in nature clinical correlation is advised correlate with urinalysis. Patient with ou tside imaging for stability would provide chronicity. 2. Moderate multilevel degenerative disc disease changes.
[2021-11-13] MEDS ORDERED: ACET/COD 300 MG/30 MG STARTER PACK 6 TAB BTL PO STA (20:10)
[2021-11-13] MEDS ORDERED: MAGNESIUM CITRATE 296 ML BOTTLE PO ONE (20:10)
--- NOTE | 2021-11-13 20:12 | ED ---
Abdominal Pain HPI - General Chief Complaint: Abdominal Pain Stated Complaint: Left retroperitoneal pain Time Seen by Provider: 11/13/21 17:33 Source: patient Mode of arrival: EMS Limitations: no limitations - History of Present Illness Initial Comments: 66 year-old female patient presents for evaluation of left flank pain. Pain started last night but worsens significantly today. States it is a constant dull pain with occasional sharp pains that are much worse. States she does feel nauseated has not vomited. Denies any constipation or diarrhea. Denies fever or chills. Denies history of similar pain. Denies any previous abdominal surgeries. She denies any radiation of the pain down her legs. Denies numbness or tingling to the lower extremities. Denies saddle anesthesia or loss of bowel or bladder control. Denies any hematuria, dysuria, urinary frequency, urinary urgency. Denies cough or shortness of breath. Denies any chest pain. Denies any injuries. Patient denies any recent rash, numbness, tingling, dizziness, weakness, headache, visual changes, or any other complaints. - Related Data Home Medications Medication Instructions Recorded Confirmed metFORMIN HCL [Glucophage] 500 mg PO BID 10/14/15 11/13/21 Latanoprost Ophth [Xalatan 0.005%] 1 drop BOTH EYES HS 03/30/19 11/13/21 Vit C/E/Zn/Coppr/Lutein/Zeaxan 1 cap PO BID 03/30/19 11/13/21 [Preservision Areds 2 Softgel] Donepezil [Aricept] 10 mg PO HS 11/13/21 11/13/21 Multivit-Min/Iron/Folic/Lutein 1 tab PO DAILY 11/13/21 11/13/21 [Centrum Silver Women Tablet] Allergies Allergy/AdvReac Type Severity Reaction Status Date / Time tetracycline AdvReac Vomiting Verified 11/13/21 18:32 Review of Systems ROS Statement: Those systems with pertinent positive or pertinent negative responses have been documented in the HPI. ROS Other: All systems not noted in ROS Statement are negative. Past Medical History Past Medical History: Diabetes Mellitus, GERD/Reflux, Skin Disorder Additional Past Medical History / Comment(s): hx heart murmer as child, allergy induced asthma, constipation,Pompholyx (eczema), hx kidney stones History of Any Multi-Drug Resistant Organisms: None Reported Past Surgical History: Tonsillectomy Additional Past Surgical History / Comment(s): open heart surgery at age 6, cataract surgery Past Anesthesia/Blood Transfusion Reactions: Motion Sickness Past Psychological History: No Psychological Hx Reported Smoking Status: Current every day smoker Past Alcohol Use History: None Reported Past Drug Use History: None Reported - Past Family History Brother(s) Family Medical History: Cancer, Dementia, Diabetes Mellitus Mother Family Medical History: Dementia, Diabetes Mellitus General Exam Limitations: no limitations General appearance: alert, in no apparent distress, other (This is a well- developed, well-nourished adult female in mild distress related to pain.) ENT exam: Present: normal exam, normal oropharynx, mucous membranes moist Respiratory exam: Present: normal lung sounds bilaterally. Absent: respiratory distress, wheezes, rales, rhonchi, stridor Cardiovascular Exam: Present: regular rate, normal rhythm, normal heart sounds. Absent: systolic murmur, diastolic murmur, rubs, gallop, clicks GI/Abdominal exam: Present: soft, normal bowel sounds. Absent: distended, tenderness, guarding, rebound, rigid Back exam: Present: normal inspection, CVA tenderness (L). Absent: CVA tenderness (R) Neurological exam: Present: alert, oriented X3, CN II-XII intact Psychiatric exam: Present: normal affect, normal mood Skin exam: Present: warm, dry, intact, normal color. Absent: rash Course Vital Signs 11/13/21 11/13/21 17:23 18:52 Temperature 98.1 F Pulse Rate 73 77 Respiratory 18 16 Rate Blood Pressure 193/83 154/72 O2 Sat by Pulse 74 L 98 Oximetry Medical Decision Making - Medical Decision Making 66-year-old female patient presented to the emergency department for evaluation of left flank pain that started yesterday. Physical examination did reveal significant tenderness over the left CVA region. Labs reviewed and did reveal sodium 136, BUN 25, glucose 129, urinalysis did show small leukoesterase with 103 red blood cells. I did perform CT abdomen and pelvis without contrast which showed dilation of the bilateral renal pelvises, atrophy of the right kidney. There was extensive colonic stool burden noted. Review of the images did show possible calcifications near the bladder. I did discuss findings and results with the patient. We did discuss there possibly was small past renal stones causing her symptoms especially given findings of blood in the urine. She also was informed of the constipation given a bottle of magnesium citrate. I also did instruct her to monitor the area for the involvement of rash in case this could be early shingles infection. She will be discharged to follow-up with the primary care physician for recheck in 1-2 days. Return parameters were discussed in detail. She verbalizes understanding and agrees with this plan. My attending is Dr. Wilkes. - Lab Data Result diagrams: 11/13/21 18:18 11/13/21 18:18 Lab Results 11/13/21 11/13/21 11/13/21 Range/Units 18:18 18:18 18:18 WBC 9.1 (3.8-10.6) k/uL RBC 4.01 (3.80-5.40) m/uL Hgb 13.0 (11.4-16.0) gm/dL Hct 38.0 (34.0-46.0) % MCV 94.7 (80.0-100.0) fL MCH 32.5 (25.0-35.0) pg MCHC 34.3 (31.0-37.0) g/dL RDW 12.1 (11.5-15.5) % Plt Count 235 (150-450) k/uL MPV 8.5 Neutrophils % 75 % Lymphocytes % 14 % Monocytes % 6 % Eosinophils % 3 % Basophils % 0 % Neutrophils # 6.9 (1.3-7.7) k/uL Lymphocytes # 1.3 (1.0-4.8) k/uL Monocytes # 0.5 (0-1.0) k/uL Eosinophils # 0.3 (0-0.7) k/uL Basophils # 0.0 (0-0.2) k/uL Sodium 136 L (137-145) mmol/L Potassium 4.5 (3.5-5.1) mmol/L Chloride 105 (98-107) mmol/L Carbon Dioxide 22 (22-30) mmol/L Anion Gap 9 mmol/L BUN 25 H (7-17) mg/dL Creatinine 0.72 (0.52-1.04) mg/dL Est GFR (CKD-EPI)AfAm >90 (>60 ml/min/1.73 sqM) Est GFR (CKD-EPI)NonAf 87 (>60 ml/min/1.73 sqM) Glucose 129 H (74-99) mg/dL Plasma Lactic Acid Rashi (0.7-2.0) mmol/L Calcium 10.2 (8.4-10.2) mg/dL Total Bilirubin 0.5 (0.2-1.3) mg/dL AST 22 (14-36) U/L ALT 17 (4-34) U/L Alkaline Phosphatase 50 (38-126) U/L Total Protein 6.9 (6.3-8.2) g/dL Albumin 4.3 (3.5-5.0) g/dL Lipase 113 (23-300) U/L Urine Color Yellow Urine Appearance Clear (Clear) Urine pH 7.0 (5.0-8.0) Ur Specific [place] 1.015 (1.001-1.035) Urine Protein Negative (Negative) Urine Glucose (UA) Negative (Negative) Urine Ketones Negative (Negative) Urine Blood Small H (Negative) Urine Nitrite Negative (Negative) Urine Bilirubin Negative (Negative) Urine Urobilinogen <2.0 (<2.0) mg/dL Ur Leukocyte Esterase Small H (Negative) Urine RBC 103 H (0-5) /hpf Urine WBC 8 H (0-5) /hpf Urine Mucus Rare H (None) /hpf 11/13/21 Range/Units 18:18 WBC (3.8-10.6) k/uL RBC (3.80-5.40) m/uL Hgb (11.4-16.0) gm/dL Hct (34.0-46.0) % MCV (80.0-100.0) fL MCH (25.0-35.0) pg MCHC (31.0-37.0) g/dL RDW (11.5-15.5) % Plt Count (150-450) k/uL MPV Neutrophils % % Lymphocytes % % Monocytes % % Eosinophils % % Basophils % % Neutrophils # (1.3-7.7) k/uL Lymphocytes # (1.0-4.8) k/uL Monocytes # (0-1.0) k/uL Eosinophils # (0-0.7) k/uL Basophils # (0-0.2) k/uL Sodium (137-145) mmol/L Potassium (3.5-5.1) mmol/L Chloride (98-107) mmol/L Carbon Dioxide (22-30) mmol/L Anion Gap mmol/L BUN (7-17) mg/dL Creatinine (0.52-1.04) mg/dL Est GFR (CKD-EPI)AfAm (>60 ml/min/1.73 sqM) Est GFR (CKD-EPI)NonAf (>60 ml/min/1.73 sqM) Glucose (74-99) mg/dL Plasma Lactic Acid Rashi 1.8 (0.7-2.0) mmol/L Calcium (8.4-10.2) mg/dL Total Bilirubin (0.2-1.3) mg/dL AST (14-36) U/L ALT (4-34) U/L Alkaline Phosphatase (38-126) U/L Total Protein (6.3-8.2) g/dL Albumin (3.5-5.0) g/dL Lipase (23-300) U/L Urine Color Urine Appearance (Clear) Urine pH (5.0-8.0) Ur Specific [place] (1.001-1.035) Urine Protein (Negative) Urine Glucose (UA) (Negative) Urine Ketones (Negative) Urine Blood (Negative) Urine Nitrite (Negative) Urine Bilirubin (Negative) Urine Urobilinogen (<2.0) mg/dL Ur Leukocyte Esterase (Negative) Urine RBC (0-5) /hpf Urine WBC (0-5) /hpf Urine Mucus (None) /hpf Disposition Clinical Impression: Left flank pain, Right renal atrophy, Constipation Disposition: HOME SELF-CARE Condition: Good Instructions (If sedation given, give patient instructions): Constipation (ED), Kidney Stones (ED), High Fiber Diet (ED), Flank Pain (ED) Additional Instructions: Drink bottle of magnesium citrate for laxative effect. Increase fluids. Take medication as needed for pain control. Follow-up with the primary care phys ician for recheck as soon as possible. Return to the emergency department for any new, worsening, or concerning symptoms. Is patient prescribed a controlled substance at d/c from ED?: No Referrals: None,Stated [Primary Care Provider] - 1-2 days Time of Disposition: 20:12
[2021-11-13 21:20] VITALS: BP 145/89; PULSE 78; RESP 18; TEMP 97
== END 2021-11-13 21:21 | disposition home or self-care (01) ==
LOC: EC 17:21
DX: N26.1 Atrophy of kidney (terminal) (principal); K59.00 Constipation, unspecified; F17.200 Nicotine dependence, unspecified, uncomplicated; E11.9 Type 2 diabetes mellitus without complications; J45.909 Unspecified asthma, uncomplicated; Z88.1 Allergy status to other antibiotic agents; Z79.84 Long term (current) use of oral hypoglycemic drugs
CPT/HCPCS: 36415; 80053; 83605; 83690; 85025; 81001; 74176; 99284; 96374; 96375; 96361; J2405; J1170

== ENCOUNTER 2022-01-29 13:56 | Emergency (ER) | payer MEDICARE, OTHER ==
[2022-01-29 14:00] VITALS: TEMP 97.8
--- NOTE | 2022-01-29 15:14 | CT ---
EXAMINATION TYPE: CT brain wo con DATE OF EXAM: 01/29/2022 COMPARISON: 06/11/2021 HISTORY: Head trauma, dizziness. CT DLP: 1084.4 mGycm Automated exposure control for dose reduction was used. FINDINGS: The ventricles, basal cisterns and sulci over the convexities are within normal limits and there is n o mass effect or shift of midline structures There is mild decreased density in the white matter both cerebral is consistent with mild chronic isc hemic white matter demyelination. There is no acute intra-axial or extra-axial hemorrhage. The posterior fossa including the brainstem, fourth ventricle and cerebellar pontine angles appear no rmal. Visualized paranasal sinuses are well aerated with exception mild mucosal thickening in the ethmoid a ir cells. There are postsurgical changes involving the maxillary sinuses. The calvarium is intact IMPRESSION: No acute bleed or mass effect.
--- NOTE | 2022-01-29 15:44 | ED ---
Head Injury HPI - General Chief complaint: Head Injury Stated complaint: Fall-Head injury Time Seen by Provider: 01/29/22 14:04 Source: patient, family, RN notes reviewed Mode of arrival: ambulatory Limitations: no limitations - History of Present Illness Initial comments: This is a 66-year-old female who presents to the emergency department for a head injury. Yesterday while at her apartment, she tripped and fell face forward. She denies any loss of consciousness, nausea, or vomiting. Her daughter states that she does have dementia and lives alone, so the fall was not witnessed. She called her primary care provider today, who would not see her until she was evaluated in the emergency department. Patient currently denies any symptoms, and does note some bruising on her nose and forehead. As a separate issue, she reports some episodes of dizziness that occur when she turns her head, states that this feels like a room spinning sensation. This has been an intermittent issue for several months. She has never been diagnosed with vertigo. Denies any chest pain, shortness of breath, or palpitations. She did have a cardiac evaluation less than a year ago which did not reveal any significant results. MD Complaint: head injury Onset/Timin -: days(s) Mechanism of Injury: mechanical fall Loss of Consciousness: no Place: home - Related Data Home Medications Medication Instructions Recorded Confirmed metFORMIN HCL [Glucophage] 500 mg PO BID 10/14/15 11/13/21 Latanoprost Ophth [Xalatan 0.005%] 1 drop BOTH EYES HS 03/30/19 11/13/21 Vit C/E/Zn/Coppr/Lutein/Zeaxan 1 cap PO BID 03/30/19 11/13/21 [Preservision Areds 2 Softgel] Donepezil [Aricept] 10 mg PO HS 11/13/21 11/13/21 Multivit-Min/Iron/Folic/Lutein 1 tab PO DAILY 11/13/21 11/13/21 [Centrum Silver Women Tablet] Previous Rx's Medication Instructions Recorded Meclizine [Antivert] 25 mg PO BID PRN #20 tab 01/29/22 Metoclopramide [Reglan] 5 mg PO Q6H PRN #20 tab 01/29/22 Allergies/Adverse reactions: Allergies Allergy/AdvReac Type Severity Reaction Status Date / Time tetracycline AdvReac Vomiting Verified 01/29/22 14:00 Review of Systems ROS Statement: Those systems with pertinent positive or pertinent negative responses have been documented in the HPI. ROS Other: All systems not noted in ROS Statement are negative. Constitutional: Denies: fever, chills Eyes: Denies: vision change ENT: Denies: ear pain, throat pain Respiratory: Denies: cough, dyspnea Cardiovascular: Denies: chest pain, palpitations Gastrointestinal: Denies: abdominal pain, nausea, vomiting, diarrhea Genitourinary: Denies: urgency, dysuria Musculoskeletal: Denies: back pain Skin: Denies: rash Neurological: Denies: headache Past Medical History Past Medical History: Diabetes Mellitus, GERD/Reflux, Skin Disorder Additional Past Medical History / Comment(s): hx heart murmer as child, allergy induced asthma, constipation,Pompholyx (eczema), hx kidney stones History of Any Multi-Drug Resistant Organisms: None Reported Past Surgical History: Tonsillectomy Additional Past Surgical History / Comment(s): open heart surgery at age 6, cataract surgery Past Anesthesia/Blood Transfusion Reactions: Motion Sickness Past Psychological History: No Psychological Hx Reported Smoking Status: Current every day smoker Past Alcohol Use History: None Reported Past Drug Use History: None Reported - Past Family History Brother(s) Family Medical History: Cancer, Dementia, Diabetes Mellitus Mother Family Medical History: Dementia, Diabetes Mellitus General Exam Limitations: no limitations General appearance: alert, in no apparent distress Head exam: Present: atraumatic, normocephalic, normal inspection Eye exam: Present: normal appearance, PERRL, EOMI. Absent: scleral icterus, conjunctival injection, periorbital swelling Respiratory exam: Present: normal lung sounds bilaterally. Absent: respiratory distress, wheezes, rales, rhonchi, stridor Cardiovascular Exam: Present: regular rate, normal rhythm, normal heart sounds. Absent: systolic murmur, diastolic murmur, rubs, gallop, clicks Neurological exam: Present: alert, oriented X3, CN II-XII intact Psychiatric exam: Present: normal affect, normal mood Skin exam: Present: warm, dry, intact, normal color. Absent: rash Course Vital Signs 01/29/22 01/29/22 13:57 15:48 Temperature 97.8 F Pulse Rate 77 70 Respiratory 20 18 Rate Blood Pressure 165/83 134/74 O2 Sat by Pulse 97 97 Oximetry Medical Decision Making - Medical Decision Making This is a 66-year-old female who presents to the emergency department for a head injury. Computed tomography scan of the head did not reveal any acute changes. Advised her to return if she develops any changes in mentation or behavior over the next few days. She and her daughter expressed understanding. Her symptoms of dizziness with the room spinning sensation and the symptoms occurring with positional changes are consistent with vertigo. Given that the computed tomography scan was negative and she recently had a negative cardiac evaluation, neurological and cardiovascular processes are unlikely. Patient given an Rx for Reglan and Antivert to try for vertigo. Advised to take these when symptomatic, trying one at a time to see if either are effective. I did advise that these can make her sleepy and groggy and she should first take them when she plans to stay at home. Return precautions reviewed in depth, the patient is instructed to return to the emergency department with any new, worsening, or concerning symptoms. Patient verbalized understanding. This case was discussed in detail with the attending ED physician. Presentation, findings, and treatment plan discussed in detail as well. - Radiology Data Radiology results: report reviewed, image reviewed Disposition Clinical Impression: Closed head injury Disposition: HOME SELF-CARE Instructions (If sedation given, give patient instructions): Fall Prevention for Older Adults (ED) Additional Instructions: Return to the emergency department with any new, worsening, or concerning symptoms. Follow up with your primary care provider in 1-2 days. Prescriptions: Meclizine [Antivert] 25 mg PO BID PRN #20 tab PRN Reason: Vertigo Metoclopramide [Reglan] 5 mg PO Q6H PRN #20 tab PRN Reason: Vertigo Is patient prescribed a controlled substance at d/c from ED?: No Referrals: Tanner Amaya DO [Primary Care Provider] - 1-2 days
[2022-01-29 15:51] VITALS: BP 134/74; PULSE 70; RESP 18
== END 2022-01-29 15:53 | disposition home or self-care (01) ==
LOC: EC 13:56
DX: S09.90XA Unspecified injury of head, initial encounter (principal); E11.9 Type 2 diabetes mellitus without complications; F17.200 Nicotine dependence, unspecified, uncomplicated; Z88.1 Allergy status to other antibiotic agents; W01.0XXA Fall on same level from slipping, tripping and stumbling without subsequent striking against object, initial encounter
CPT/HCPCS: 70450; 99284

== ENCOUNTER → 2023-02-24 | Outpatient (CLI) | payer MEDICARE, OTHER ==
--- NOTE | 2023-02-25 00:05 | CT ---
EXAMINATION TYPE: CT chest w con DATE OF EXAM: 02/24/2023 COMPARISON: None HISTORY: lung nodule CT DLP: 137.8 mGycm, Automated exposure control for dose reduction was used. CONTRAST: Performed injected with 80ml mL of Isovue 300. TECHNIQUE: Axial images were obtained at 5 mm thick sections. Reconstructed images are reviewed on [employer] computer in the coronal plane. FINDINGS: There are 2 large hypodensities within the left thyroid lobe. These measures 1.1 cm. These can be further evaluated with ultrasound. Right lobe thyroid appears heterogenous. Some calcification may be present. No suspicious lung nodules or focal infiltrates are present. No enlarged mediastinal or hilar adenopathy is evident. The ascending aorta diameter at the level o f the main pulmonary artery is 2.7 cm. The main pulmonary artery diameter at the bifurcation is 2.0 cm. Coronary artery calcification is present Limited CT sections are obtained through the upper abdomen. Marked hydronephrosis is present bilatera lly. This may be progressive from the comparison CT abdomen and pelvis 11/13/2021. IMPRESSIONS: 1. No suspicious lung nodules. 2. Enlarged heterogenous thyroid. Additional workup with ultrasound is recommended. 3. Marked bilateral hydronephrosis. This appears progressive from the 2021 comparison study. Consider additional workup with ultrasound.
== END | disposition home or self-care (01) ==
LOC: RADCTMAIN 17:53
PROVIDERS: ATTEND Family Medicine
DX: N13.30 Unspecified hydronephrosis (principal); E04.9 Nontoxic goiter, unspecified; R91.1 Solitary pulmonary nodule
CPT/HCPCS: 82565; 84520; 71260; 36415; Q9967

== ENCOUNTER 2023-03-09 17:20 | Inpatient (IN) | payer MEDICARE, OTHER ==
[2023-03-09] MEDS ORDERED: SODIUM CHLORIDE 0.9% 1,000 ML IV STA ×2 (20:06)
[2023-03-09] MEDS ORDERED: SODIUM CHLORIDE 0.9% 500 ML 500 ML IV STA (20:06)
--- NOTE | 2023-03-09 20:07 | ED ---
Recheck HPI - General Chief Complaint: Recheck/Abnormal Lab/Rx Stated Complaint: AMS Time Seen by Provider: 03/09/23 20:04 Source: patient, RN notes reviewed, old records reviewed Mode of arrival: ambulatory Limitations: no limitations - History of Present Illness Initial Comments: This is a 67-year-old female to the emergency department. Patient presents today for evaluation regards to altered mental status elevated blood sugar not taking care of himself worsening dementia. Patient was sent to ER for evaluation by primary care for his increasing debility and increasing blood sugar MD Complaint: wound re-check, abnormal lab (Elevated creatinine) -: hour(s) Returns Today for: Called Because of Abnormal Lab/Test, persistent/worsening pain related to initial visit Symptoms Since Prior Visit: no new symptoms Context: planned re-check Associated Symptoms: none Treatments Prior to Arrival: Given Pain Meds on - Related Data Home Medications Medication Instructions Recorded Confirmed Vit C/E/Zn/Coppr/Lutein/Zeaxan 1 cap PO BID 03/30/19 03/09/23 [Preservision Areds 2 Softgel] Previous Rx's Medication Instructions Recorded Atorvastatin [Lipitor] 20 mg PO HS tab 03/17/23 INSULIN ASPART (NovoLOG) [NovoLOG 0 unit SQ ACHS each 03/17/23 (formulary)] Nicotine 14Mg/24Hr Patch [Habitrol] 1 patch TRANSDERM DAILY patch 03/17/23 OLANZapine [ZyPREXA] 5 mg PO DAILY #1 tab 03/17/23 Pioglitazone [Actos] 30 mg PO DAILY tab 03/17/23 cloNIDine HCL [Catapres] 0.1 mg PO BID tab 03/17/23 glipiZIDE [Glucotrol] 10 mg PO AC-BID tab 03/17/23 metFORMIN HCL [Glucophage] 500 mg PO BID #0 03/17/23 Allergies Allergy/AdvReac Type Severity Reaction Status Date / Time tetracycline AdvReac Vomiting Verified 03/09/23 21:46 Review of Systems ROS Statement: Those systems with pertinent positive or pertinent negative responses have been documented in the HPI. ROS Other: All systems not noted in ROS Statement are negative. Past Medical History Past Medical History: Diabetes Mellitus, GERD/Reflux, Skin Disorder Additional Past Medical History / Comment(s): hx heart murmer as child, allergy induced asthma, constipation,Pompholyx (eczema), hx kidney stones History of Any Multi-Drug Resistant Organisms: None Reported Past Surgical History: Tonsillectomy Additional Past Surgical History / Comment(s): open heart surgery at age 6, cataract surgery Past Anesthesia/Blood Transfusion Reactions: Motion Sickness Past Psychological History: No Psychological Hx Reported Smoking Status: Current every day smoker Past Alcohol Use History: None Reported Past Drug Use History: None Reported - Past Family History Brother(s) Family Medical History: Cancer, Dementia, Diabetes Mellitus Mother Family Medical History: Dementia, Diabetes Mellitus General Exam Limitations: no limitations General appearance: alert, in no apparent distress Head exam: Present: atraumatic, normocephalic, normal inspection Eye exam: Present: normal appearance, PERRL, EOMI. Absent: scleral icterus, conjunctival injection, periorbital swelling ENT exam: Present: normal exam, mucous membranes moist Neck exam: Present: normal inspection. Absent: tenderness, meningismus, lymphadenopathy Respiratory exam: Present: normal lung sounds bilaterally. Absent: respiratory distress, wheezes, rales, rhonchi, stridor Cardiovascular Exam: Present: regular rate, normal rhythm, normal heart sounds. Absent: systolic murmur, diastolic murmur, rubs, gallop, clicks GI/Abdominal exam: Present: soft, normal bowel sounds. Absent: distended, tenderness, guarding, rebound, rigid Extremities exam: Present: normal inspection, full ROM, normal capillary refill. Absent: tenderness, pedal edema, joint swelling, calf tenderness Back exam: Present: normal inspection Neurological exam: Present: alert, oriented X3, CN II-XII intact Psychiatric exam: Present: normal affect, normal mood Skin exam: Present: warm, dry, intact, normal color. Absent: rash Course Vital Signs 03/09/23 03/09/23 03/09/23 17:39 21:00 21:50 Pulse Rate 78 73 63 Respiratory 20 18 18 Rate Blood Pressure 152/71 171/87 139/69 O2 Sat by Pulse 97 99 99 Oximetry - Reevaluation(s) Reevaluation #1: 03/09/23 22:57 Medical record is reviewed Reevaluation #2: 03/09/23 22:57 Patient no change in symptoms here in the ER Reevaluation #3: 03/09/23 22:57 Patient informed results and questions are answered Reevaluation #4: 03/09/23 22:57 Was pt. sent in by a medical professional or institution? @ -yes as this patient did have outpatient laboratories that were abnormal Did you speak to anyone other than the patient for history? @ -Yes patient's daughter is at bedside. Patient is not taking any of her medications. At home appropriately Did you review nursing and triage notes? @ -agree Were old charts reviewed? @ -no Differential Diagnosis? @ -prior EKG interpreted by me (3pts min.)? @ -yes X-rays interpreted by me (1pt min.)? @ -no CT interpreted by me (1pt min.)? @ -no U/S interpreted by me (1pt. min.)? @ -no What testing was considered but not performed? (CT, X-rays, U/S, labs)? Why? @ -no What meds were considered but not given? Why? @ -no Did you discuss the management of the patient with other professionals? @ -no Did you reconcile home meds? @ -no Was smoking cessation discussed for >3mins.? @ -no Was critical care preformed (if so, how long)? @ -no Were there social determinants of health that impacted care today? How? (Homelessness, low income, unemployed, alcoholism, drug addiction, transportation, low edu. Level, literacy, decrease access to med. care, senior care, rehab)? @ -no Was there de-escalation of care discussed even if they declined? (Discuss DNR or withdrawal of care, Hospice)? @ -no What co-morbidities impacted this encounter? (DM, HTN, Smoking, COPD, CAD, Cancer, CVA, Hep., AIDS, mental health diagnosis, sleep apnea, morbid obesity)? @ -none Was patient admitted / discharged? @ -67 female for outpatient abnormal lab values, increased blood sugar increased creatinine patient will be admitted for dehydration elevated blood sugar acute renal failure Admitted Undiagnosed new problem with uncertain prognosis? @ -no Drug Therapy requiring intensive monitoring for toxicity (Heparin, Nitro, I nsulin, Cardizem)? @ -no Were any procedures done? @ -no Diagnosis/symptom? @ -Renal failure and hyperglycemia Acute, or Chronic, or Acute on Chronic? @ -Acute Uncomplicated (without systemic symptoms) or Complicated (systemic symptoms)? @ -complicated Side effects of treatment? @ -no Exacerbation, Progression, or Severe Exacerbation] @ -no Poses a threat to life or bodily function? @ -yes significant renal failure with electrolyte abnormality and arrhythmia Reevaluation #5: 03/09/23 22:57 Differential Altered Mental Status: Hypoglycemia, DKA, hypercapnia, ETOH, overdose, CO poisoning, trauma, myxedema coma, HTN encephalopathy, infection, encephalitis, psychosis, intercranial hemorrhage, hepatic encephalopathy, meningitis, CVA, this is not meant to be an all-inclusive list - Consultations Consultation #1: Spoke with admitting physicians who will admit this patient Medical Decision Making - Medical Decision Making 67 female with worsening dementia elevated blood sugar. Patient will be admitted for blood sugar control and supportive care - Lab Data Result diagrams: 03/09/23 20:40 03/17/23 06:05 Lab Results 03/09/23 03/09/23 03/09/23 Range/Units 20:40 20:40 20:53 WBC 5.9 (3.8-10.6) k/uL RBC 3.75 L (3.80-5.40) m/uL Hgb 11.7 (11.4-16.0) gm/dL Hct 34.4 (34.0-46.0) % MCV 91.7 (80.0-100.0) fL MCH 31.3 (25.0-35.0) pg MCHC 34.2 (31.0-37.0) g/dL RDW 12.4 (11.5-15.5) % Plt Count 274 (150-450) k/uL MPV 8.0 Neutrophils % 67 % Lymphocytes % 22 % Monocytes % 7 % Eosinophils % 3 % Basophils % 0 % Neutrophils # 3.9 (1.3-7.7) k/uL Lymphocytes # 1.3 (1.0-4.8) k/uL Monocytes # 0.4 (0-1.0) k/uL Eosinophils # 0.2 (0-0.7) k/uL Basophils # 0.0 (0-0.2) k/uL Sodium 132 L (137-145) mmol/L Potassium 4.7 (3.5-5.1) mmol/L Chloride 98 (98-107) mmol/L Carbon Dioxide 25 (22-30) mmol/L Anion Gap 9 mmol/L BUN 44 H (7-17) mg/dL Creatinine 1.41 H (0.52-1.04) mg/dL Est GFR (CKD-EPI)AfAm 44 (>60 ml/min/1.73 sqM) Est GFR (CKD-EPI)NonAf 38 (>60 ml/min/1.73 sqM) Glucose 412 H (74-99) mg/dL Calcium 9.3 (8.4-10.2) mg/dL Phosphorus 3.9 (2.5-4.5) mg/dL Magnesium 2.1 (1.6-2.3) mg/dL Total Bilirubin 0.3 (0.2-1.3) mg/dL AST 18 (14-36) U/L ALT 19 (4-34) U/L Alkaline Phosphatase 71 (38-126) U/L Total Protein 6.3 (6.3-8.2) g/dL Albumin 3.9 (3.5-5.0) g/dL Urine Color Light Yellow Urine Appearance Clear (Clear) Urine pH 6.5 (5.0-8.0) Ur Specific [place] 1.010 (1.001-1.035) Urine Protein Negative (Negative) Urine Glucose (UA) 4+ H (Negative) Urine Ketones Negative (Negative) Urine Blood Negative (Negative) Urine Nitrite Negative (Negative) Urine Bilirubin Negative (Negative) Urine Urobilinogen <2.0 (<2.0) mg/dL Ur Leukocyte Esterase Trace H (Negative) Urine WBC 3 (0-5) /hpf Ur Squamous Epith Cells 1 (0-4) /hpf Acetone, Qual Negative (Negative) - EKG Data -: EKG Interpreted by Me (EKG is sinus 66 TN 137 QRS 77 QTc 394) Disposition Clinical Impression: Hyperglycemia, Altered mental status, Dementia Disposition: ADMITTED IP TO THIS HOSP Is patient prescribed a controlled substance at d/c from ED?: No Time of Disposition: 21:30
[2023-03-09 20:58] LABS: Basophils % (A) 0 %; Eosinophils # (A) 0.2 k/uL (0-0.7); Eosinophils % (A) 3 %; HCT 34.4 % (34.0-46.0); HGB 11.7 gm/dL (11.4-16.0); Lymphocytes # (A) 1.3 k/uL (1.0-4.8); Lymphocytes % (A) 22 %; MCH 31.3 pg (25.0-35.0); MCHC 34.2 g/dL (31.0-37.0); MCV 91.7 fL (80.0-100.0); Monocytes # (A) 0.4 k/uL (0-1.0); Monocytes % (A) 7 %; Neutrophils # (A) 3.9 k/uL (1.3-7.7); Neutrophils % (A) 67 %; Platelet Count 274 k/uL (150-450); RBC 3.75 m/uL (3.80-5.40); RDW 12.4 % (11.5-15.5); WBC 5.9 k/uL (3.8-10.6)
[2023-03-09 21:15] LABS: Appearance,Urine Clear (Clear); Bilirubin,Urine Negative (Negative); Blood,Urine Negative (Negative); Color,Urine Light Yellow; Glucose,Urine (UA) 4+ (Negative); Ketones,Urine Negative (Negative); Leukocyte Esterase,Urine Trace (Negative); Nitrite,Urine Negative (Negative); PH, Urine 6.5 (5.0-8.0); Protein,Urine Negative (Negative); Squamous Epithelial Cell,Urine 1 /hpf (0-4); Urobilinogen,Urine <2.0 mg/dL (<2.0); WBC,Urine 3 /hpf (0-5)
[2023-03-09 21:19] LABS: ALT 19 U/L (4-34); AST 18 U/L (14-36); African American GFR (CKD) 44 (>60 ml/min/1.73 sqM); Albumin 3.9 g/dL (3.5-5.0); Alkaline Phosphatase 71 U/L (38-126); Anion Gap 9 mmol/L; Blood Urea Nitrogen 44 mg/dL (7-17); Calcium 9.3 mg/dL (8.4-10.2); Carbon Dioxide 25 mmol/L (22-30); Chloride 98 mmol/L (98-107); Glucose 412 mg/dL (74-99); Magnesium 2.1 mg/dL (1.6-2.3); Non-African American GFR(CKD) 38 (>60 ml/min/1.73 sqM); Phosphorus 3.9 mg/dL (2.5-4.5); Potassium 4.7 mmol/L (3.5-5.1); Sodium 132 mmol/L (137-145); Total Bilirubin 0.3 mg/dL (0.2-1.3); Total Protein 6.3 g/dL (6.3-8.2)
[2023-03-09] MEDS ORDERED: INSULIN REGULAR 100 UNIT/ML VIAL (IV) IV STA (21:32)
[2023-03-09] MEDS ORDERED: ONDANSETRON 4 MG/2 ML VIAL IVP PRN (21:32)
[2023-03-09] MEDS ORDERED: MORPHINE SULFATE 4 MG/ML SYRINGE IV PRN (21:32)
[2023-03-09] MEDS ORDERED: NALOXONE 0.4 MG/ML 1 ML VIAL IV PRN (21:32)
[2023-03-10 06:22] LABS: Glucose,Whole Blood 217 mg/dL (70-110)
[2023-03-10] MEDS ORDERED: DEXTROSE 50% SYRINGE 50 ML IVP PRN (07:17)
[2023-03-10 07:26] LABS: ALT 18 U/L (4-34); AST 23 U/L (14-36); African American GFR (CKD) 48 (>60 ml/min/1.73 sqM); Albumin 3.3 g/dL (3.5-5.0); Alkaline Phosphatase 50 U/L (38-126); Anion Gap 10 mmol/L; Blood Urea Nitrogen 35 mg/dL (7-17); Calcium 8.5 mg/dL (8.4-10.2); Carbon Dioxide 18 mmol/L (22-30); Chloride 108 mmol/L (98-107); Glucose 173 mg/dL (74-99); Magnesium 1.9 mg/dL (1.6-2.3); Non-African American GFR(CKD) 41 (>60 ml/min/1.73 sqM); Phosphorus 4.1 mg/dL (2.5-4.5); Sodium 136 mmol/L (137-145); Total Bilirubin 0.5 mg/dL (0.2-1.3); Total Protein 5.6 g/dL (6.3-8.2)
[2023-03-10 07:48] LABS: Potassium 4.5 mmol/L (3.5-5.1)
[2023-03-10] MEDS: INSULIN ASPART (NovoLOG) 100 UNIT/ML VIAL SQ SCH ×4 (07:55→21:16)
[2023-03-10] MEDS ORDERED: metFORMIN 500 MG TAB PO SCH ×2 (09:00→21:00)
[2023-03-10 11:48] LABS: Glucose,Whole Blood 267 mg/dL (70-110)
[2023-03-10] MEDS: PIOGLITAZONE 30 MG TAB PO SCH (12:21)
[2023-03-10] MEDS ORDERED: LORazepam 1 MG TAB PO STA (15:24)
[2023-03-10 16:38] LABS: Glucose,Whole Blood 331 mg/dL (70-110)
[2023-03-10] MEDS ORDERED: ENOXAPARIN 40 MG/0.4 ML SYRINGE SQ SCH (18:15)
[2023-03-10 19:03] LABS: Glucose,Whole Blood 357 mg/dL (70-110)
--- NOTE | 2023-03-10 19:12 | P.HPIM ---
History of Present Illness H&P Date: 03/10/23 Chief Complaint: Elevated blood sugar This is a pleasant 67-year-old patient who follows a Dr. Amaya. Chronic stable medical conditions include diabetes, GERD, ALLERGY-induced asthma, kidney stones. Lives in an apartment. Has underlying cognitive impairment. Patient presented to ER with some confusion and high sugars. Blood glucose was 412. Negative for blood acetone. Patient is on oral hypoglycemic. It is unclear to the circumstances who brought the patient in order to send the patient to the ER. Patient cannot tell for herself. Patient is able to answer questions but not able to give any detailed answers. For example she does not know protocol to the hospital. It seems she does take her medications. Otherwise independent and active. But forgetful. Case management trying to get hold of guardian. Denies any fever and chills. No diarrhea. No pain. Is a smoker. Review of systems: GEN.: Tired EYES: None HEENT: None NECK: None RESPIRATORY: None CARDIOVASCULAR: None GASTROINTESTINAL: None GENITOURINARY: None MUSCULOSKELETAL: None LYMPHATICS: None HEMATOLOGICAL: None PSYCHIATRY: Forgetful NEUROLOGICAL: None Past medical history to include: Cognitive impairment, diabetes, essential hypertension, hyperlipidemia, Social history: Smoker. Lives in independent i apartment Physical examination: VITAL SIGNS: 98.3, 85, 18, 166/75, 98% room air GENERAL: BMI 21.6, laying in bed not in distress. EYES: Pupils equal. Conjunctiva normal. HEENT: External appearance of nose and ears normal, oral cavity grossly normal. NECK: JVD not raised; masses not palpable. HEART: First and second heart sounds are normal; no edema. LUNGS: Respiratory rate normal; diminished breath sounds. ABDOMEN: Soft, nontender, liver spleen not palpable, no masses palpable. PSYCH: Patient knows her name no/in the hospital, cannot tell the year. Cannot tell who brought her into why she is here.l. MUSCULOSKELETAL:No Clubbing/cyanosis;muscles-grossly intact NEUROLOGICAL: Cranial nerves grossly intact; no facial asymmetry, power and sensation grossly intact. LYMPHATICS: No lymph nodes palpable in the axilla and neck INVESTIGATIONS, reviewed in the clinical context: March 09: White count 5.9 hemoglobin 11.7 platelets 274 sodium 132 potassium 4.7 BUN 44 creatinine 1.41 glucose 412 Serum acetone negative EKG tracing personally reviewed by me-normal sinus rhythm Chest x-ray film personally reviewed by me-hyperinflation Previous labs: January 2023 creatinine 1.33. November 2021 creatinine 0.7 to Assessment and plan: -Nonketotic hyperosmolar hyperglycemia IV fluids. Oral hypoglycemic. -Chronic nicotine dependence, cigarette smoker Nicotine patch -COPD in a current smoker Albuterol when necessary -Essential hypertension Catapres 0.1 mg twice a day -Acute versus chronic kidney disease. Renal ultrasound. Recheck labs in the morning after IV hydration -Severe Cognitive impairment. Check TSH B12. -Diabetes mellitus type 2, on oral hypoglycemic Resume metformin. Follow Accu-Cheks. -Hyperlipidemia Lipitor 20 -Full code Patient has a legal guardian Patient has significant cognitive impairment. Spoke to the case fitter. Rodolfo cintron more supervised setting. Renal ultrasound. Follow Accu-Cheks. IV fluids. Reviewed labs. Case management and could not reach out with the patient's legal guardian Past Medical History Past Medical History: Diabetes Mellitus, GERD/Reflux, Skin Disorder Additional Past Medical History / Comment(s): hx heart murmer as child, allergy induced asthma, constipation,Pompholyx (eczema), hx kidney stones History of Any Multi-Drug Resistant Organisms: None Reported Past Surgical History: Tonsillectomy Additional Past Surgical History / Comment(s): open heart surgery at age 6, cataract surgery Past Anesthesia/Blood Transfusion Reactions: Motion Sickness Past Psychological History: No Psychological Hx Reported Smoking Status: Current every day smoker Past Alcohol Use History: None Reported Past Drug Use History: None Reported - Past Family History Brother(s) Family Medical History: Cancer, Dementia, Diabetes Mellitus Mother Family Medical History: Dementia, Diabetes Mellitus Medications and Allergies Home Medications Medication Instructions Recorded Confirmed Type metFORMIN HCL [Glucophage] 1,000 mg PO DAILY 10/14/15 03/09/23 History Vit C/E/Zn/Coppr/Lutein/Zeaxan 1 cap PO BID 03/30/19 03/09/23 History [Preservision Areds 2 Softgel] metFORMIN HCL [Glucophage] 500 mg PO HS 03/09/23 03/09/23 History Allergies Allergy/AdvReac Type Severity Reaction Status Date / Time tetracycline AdvReac Vomiting Verified 03/09/23 21:46 Physical Exam Vitals: Vital Signs Temp Pulse Pulse Resp BP BP Pulse Ox 03/10/23 08:00 85 18 06/08/23 07:11 98.3 F 85 18 166/75 98 03/10/23 01:48 97.8 F 79 16 166/77 99 03/09/23 23:52 98.3 F 75 18 188/77 99 03/09/23 21:50 63 18 139/69 99 03/09/23 21:00 73 18 171/87 99 03/09/23 17:39 78 20 152/71 97 Intake and Output 03/09/23 03/10/23 03/10/23 22:59 06:59 14:59 Other: # Voids 2 Weight 53.524 kg 53.524 kg Results CBC & Chem 7: 03/09/23 20:40 03/10/23 06:13 Labs: Abnormal Lab Results - Last 24 Hours (Table) 03/09/23 03/09/23 03/09/23 Range/Units 20:40 20:40 20:53 RBC 3.75 L (3.80-5.40) m/uL Sodium 132 L (137-145) mmol/L Chloride (98-107) mmol/L Carbon Dioxide (22-30) mmol/L BUN 44 H (7-17) mg/dL Creatinine 1.41 H (0.52-1.04) mg/dL Glucose 412 H (74-99) mg/dL POC Glucose (mg/dL) (70-110) mg/dL Total Protein (6.3-8.2) g/dL Albumin (3.5-5.0) g/dL Urine Glucose (UA) 4+ H (Negative) Ur Leukocyte Esterase Trace H (Negative) 03/10/23 03/10/23 Range/Units 06:13 06:20 RBC (3.80-5.40) m/uL Sodium 136 L (137-145) mmol/L Chloride 108 H (98-107) mmol/L Carbon Dioxide 18 L (22-30) mmol/L BUN 35 H (7-17) mg/dL Creatinine 1.32 H (0.52-1.04) mg/dL Glucose 173 H (74-99) mg/dL POC Glucose (mg/dL) 217 H (70-110) mg/dL Total Protein 5.6 L (6.3-8.2) g/dL Albumin 3.3 L (3.5-5.0) g/dL Urine Glucose (UA) (Negative) Ur Leukocyte Esterase (Negative) Thrombosis Risk Factor Assmnt - Choose All That Apply Any of the Below Risk Factors Present?: No Each Risk Factor Represents 2 Points: Age 61-74 years Thrombosis Risk Factor Assessment Total Risk Factor Score: 2 Thrombosis Risk Factor Assessment Level: Low Risk
--- NOTE | 2023-03-10 19:14 | XR ---
EXAMINATION TYPE: XR chest 2V DATE OF EXAM: 03/10/2023 7:02 PM COMPARISON: Chest radiographs from 06/11/2021 TECHNIQUE: XR chest 2V Frontal and lateral views of the chest. CLINICAL INDICATION:Female, 67 years old with history of Smoker; FINDINGS: Lungs/Pleura: There is flattening of the diaphragm with increased lucency of the lungs. No evidence o f pneumothorax, pleural effusion or focal consolidation. Pulmonary vascularity: Unremarkable. Heart/mediastinum: Cardiomediastinal silhouette is unremarkable. Musculoskeletal: No acute osseous pathology. IMPRESSION: 1. No acute cardiopulmonary disease process. 2. COPD changes.
--- NOTE | 2023-03-10 19:16 | US ---
EXAMINATION TYPE: US kidneys/renal and bladder DATE OF EXAM: 03/10/2023 COMPARISON: 02/22/[address] 11/13/2021 CLINICAL INDICATION: Female, 67 years old with history of Evaluate for CK D; eval for CKD. Hx of hydr onephrosis on rt side. Pt extremely confused and uncooperative. EXAM MEASUREMENTS: Right Kidney: 11.5 x 4.7 x 5.5 cm Left Kidney: 10.2 x 3.6 x 6.3 cm Right Kidney: Moderate to severe hydronephrosis seen, comparable to prior. Cortical medullary differe ntiation is likely maintained. Left Kidney: Moderate to severe hydronephrosis visualized. Limited due to ribs and bowel. Cortical me dullary differentiation is likely maintained. Bladder: Not seen due to bowel Bilateral Jets seen: No IMPRESSION: Moderate to severe bilateral hydronephrosis findings similar to prior CT 11/13/2021 given differences in technique
[2023-03-10] MEDS: NICOTINE 14MG/24HR PATCH TRANSDERM SCH (21:15)
[2023-03-10] MEDS: QUEtiapine 25 MG TAB PO SCH (21:16)
[2023-03-10] MEDS: ATORVASTATIN 20 MG TAB PO SCH (21:16)
[2023-03-10] MEDS: cloNIDine HCL 0.1 MG TAB PO SCH (21:16)
[2023-03-10] MEDS: VIT A,C & E-LUTEIN-MINERALS 1 EACH TAB PO SCH (21:17)
[2023-03-11 06:28] LABS: Glucose,Whole Blood 189 mg/dL (70-110)
[2023-03-11 07:58] LABS: African American GFR (CKD) 32 (>60 ml/min/1.73 sqM); Anion Gap 4 mmol/L; Blood Urea Nitrogen 38 mg/dL (7-17); Carbon Dioxide 25 mmol/L (22-30); Chloride 107 mmol/L (98-107); Glucose 156 mg/dL (74-99); Non-African American GFR(CKD) 28 (>60 ml/min/1.73 sqM); Potassium 4.9 mmol/L (3.5-5.1); Sodium 136 mmol/L (137-145)
[2023-03-11] MEDS: INSULIN ASPART (NovoLOG) 100 UNIT/ML VIAL SQ SCH ×4 (10:18→21:55)
[2023-03-11] MEDS: SODIUM CHLORIDE 0.9% 1,000 ML IV SCH ×3 (10:18→22:02)
[2023-03-11] MEDS: NICOTINE 14MG/24HR PATCH TRANSDERM SCH (10:32)
[2023-03-11] MEDS: PIOGLITAZONE 30 MG TAB PO SCH (10:32)
[2023-03-11] MEDS: VIT A,C & E-LUTEIN-MINERALS 1 EACH TAB PO SCH ×2 (10:32→21:54)
[2023-03-11] MEDS: cloNIDine HCL 0.1 MG TAB PO SCH ×2 (10:32→21:54)
[2023-03-11 11:47] LABS: Glucose,Whole Blood 401 mg/dL (70-110)
[2023-03-11] MEDS: glipiZIDE 10 MG TAB PO SCH ×2 (12:44→17:19)
--- NOTE | 2023-03-11 16:13 | P.PN ---
Progress Note - Text Progress Note Date: 03/11/23 Chief Complaint: Elevated blood sugar This is a pleasant 67-year-old patient who follows a Dr. Amaya. Chronic stable medical conditions include diabetes, GERD, ALLERGY-induced asthma, kidney stones. Lives in an apartment. Has underlying cognitive impairment. Patient presented to ER with some confusion and high sugars. Blood glucose was 412. Negative for blood acetone. Patient is on oral hypoglycemic. It is unclear to the circumstances who brought the patient in order to send the patient to the ER. Patient cannot tell for herself. Patient is able to answer questions but not able to give any detailed answers. For example she does not know protocol to the hospital. It seems she does take her medications. Otherwise independent and active. But forgetful. Case management trying to get hold of guardian. Denies any fever and chills. No diarrhea. No pain. Is a smoker. March 11: Accu-Cheks remaining high. Glyburide added. Patient not a candidate for insulin. On IV fluids. Worsening of creatinine. Metformin stop. Actos started yesterday. Patient slept well last night with Seroquel. Patient will need a more supervised setting. Active Medications Atorvastatin Calcium (Atorvastatin 20 Mg Tab) 20 mg PO HS [facility] Last Admin: 03/10/23 21:16 Dose: 20 mg Clonidine (Clonidine Hcl 0.1 Mg Tab) 0.1 mg PO BID [facility] Last Admin: 03/11/23 10:32 Dose: 0.1 mg Dextrose/Water (Dextrose 50% Syringe 50 Ml) 25 ml IVP PER PROTOCOL PRN; Protocol PRN Reason: Hypoglycemia Enoxaparin Sodium (Enoxaparin 30 Mg/0.3 Ml Syringe) 30 mg SQ [facility] Glipizide (Glipizide 10 Mg Tab) 10 mg PO AC-BID [facility] Last Admin: 03/11/23 12:44 Dose: 10 mg Sodium Chloride (Saline 0.9%) 1,000 mls @ 130 mls/hr IV .[id number] [facility] Last Admin: 03/11/23 10:18 Dose: Not Given Insulin Aspart (Insulin Aspart (Novolog) 100 Unit/Ml Vial) 0 unit SQ [facility]; Protocol Last Admin: 03/11/23 12:44 Dose: 6 unit Multivitamins/Minerals (Vit A,C & C-Mmhjrw-Zwufoetr 1 Each Tab) 1 each PO BID [facility] Last Admin: 03/11/23 10:32 Dose: 1 each Naloxone HCl (Naloxone 0.4 Mg/Ml 1 Ml Vial) 0.2 mg IV Q2M PRN PRN Reason: Opioid Reversal Nicotine (Nicotine 14mg/24hr Patch) 1 patch TRANSDERM DAILY [facility] Last Admin: 03/11/23 10:32 Dose: 1 patch Ondansetron HCl (Ondansetron 4 Mg/2 Ml Vial) 4 mg IVP Q8HR PRN PRN Reason: Nausea And Vomiting Pioglitazone HCl (Pioglitazone 30 Mg Tab) 30 mg PO DAILY [facility] Last Admin: 03/11/23 10:32 Dose: 30 mg Quetiapine Fumarate (Quetiapine 25 Mg Tab) 25 mg PO HS [facility] Last Admin: 03/10/23 21:16 Dose: 25 mg Past medical history to include: Cognitive impairment, diabetes, essential hypertension, hyperlipidemia, Social history: Smoker. Lives in independent i apartment Physical examination: VITAL SIGNS: At 8.8, 76, 15, 148-86, 98% room air GENERAL: BMI 21.6, sitting up, EYES: Pupils equal. Conjunctiva normal. HEENT: External appearance of nose and ears normal, oral cavity grossly normal. NECK: JVD not raised; masses not palpable. HEART: First and second heart sounds are normal; no edema. LUNGS: Respiratory rate normal; diminished breath sounds. ABDOMEN: Soft, nontender, liver spleen not palpable, no masses palpable. PSYCH: Patient knows her name no/in the hospital, cannot tell the year. Cannot tell who brought her into why she is here.l. MUSCULOSKELETAL:No Clubbing/cyanosis;muscles-grossly intact INVESTIGATIONS, reviewed in the clinical context: Renal ultrasound: Bilateral hydronephrosis, moderate to severe March 21: Potassium 4.9 BUN 38 creatinine 1.8 to HbA1c 11.9 March 09: White count 5.9 hemoglobin 11.7 platelets 274 sodium 132 potassium 4.7 BUN 44 creatinine 1.41 glucose 412 Serum acetone negative EKG tracing personally reviewed by me-normal sinus rhythm Chest x-ray film personally reviewed by me-hyperinflation Previous labs: January 2023 creatinine 1.33. November 2021 creatinine 0.7 to Assessment and plan: -Nonketotic hyperosmolar hyperglycemia: Slow to respond IV fluids. Glucotrol 10 mg twice a day. Actos 30 mg a day. -Chronic nicotine dependence, cigarette smoker Nicotine patch -COPD in a current smoker Albuterol when necessary -Moderate to severe bilateral hydronephrosis. Bladder scan ordered. Nephrology consult. -Essential hypertension Catapres 0.1 mg twice a day -Acute versus chronic kidney disease.: Worsening Renal ultrasound shows bilateral hydronephrosis. Follow renal function -Severe Cognitive impairment. Check TSH B12. -Diabetes mellitus type 2, on oral hypoglycemic Resume metformin. Follow Accu-Cheks. -Hyperlipidemia Lipitor 20 -Full code Patient has a legal guardian Patient on Actos. Add glyburide. Consult urology for bilateral hydronephrosis. Bladder scan.
--- NOTE | 2023-03-11 16:25 | P.GSCN ---
History of Present Illness Consult date: 03/11/23 Reason for Consult: Bilateral hydronephrosis History of present illness: This is a 67-year-old female admitted to the hospital with hyperglycemia and altered mental status. Urology is consulted for bilateral hydronephrosis. Patient underwent a renal bladder ultrasound on presentation showed evidence of bilateral hydronephrosis. Her creatinine was elevated at 1.8 on admission, her creatinine in January was 1.3. Denies any flank pain and gross hematuria or difficulty voiding. No previous history of kidney stones or renal surgeries. She did have a CT renal stone back in 2021 that showed evidence of bilateral dilation of the collecting system, and atrophy of the right kidney Review of Systems - Constitutional Denies fever, Denies weight loss - EENT Ears, nose, mouth and throat: Denies dysphagia - Cardiovascular Denies chest pain, Denies shortness of breath - Respiratory Denies cough, Denies 7 - Gastrointestinal Denies abdominal pain, Denies nausea, Denies vomiting - Integumentary Denies rash, Denies unusual bruising - Neurological Denies headaches, Denies syncope Past Medical History Past Medical History: Diabetes Mellitus, GERD/Reflux, Skin Disorder Additional Past Medical History / Comment(s): hx heart murmer as child, allergy induced asthma, constipation,Pompholyx (eczema), hx kidney stones History of Any Multi-Drug Resistant Organisms: None Reported Past Surgical History: Tonsillectomy Additional Past Surgical History / Comment(s): open heart surgery at age 6, cataract surgery Past Anesthesia/Blood Transfusion Reactions: Motion Sickness Past Psychological History: No Psychological Hx Reported Smoking Status: Current every day smoker Past Alcohol Use History: None Reported Past Drug Use History: None Reported - Past Family History Brother(s) Family Medical History: Cancer, Dementia, Diabetes Mellitus Mother Family Medical History: Dementia, Diabetes Mellitus Medications and Allergies Home Medications Medication Instructions Recorded Confirmed Type metFORMIN HCL [Glucophage] 1,000 mg PO DAILY 10/14/15 03/09/23 History Vit C/E/Zn/Coppr/Lutein/Zeaxan 1 cap PO BID 03/30/19 03/09/23 History [Preservision Areds 2 Softgel] metFORMIN HCL [Glucophage] 500 mg PO HS 03/09/23 03/09/23 History Allergies Allergy/AdvReac Type Severity Reaction Status Date / Time tetracycline AdvReac Vomiting Verified 03/09/23 21:46 Surgical - Exam Vital Signs Pulse Resp BP Pulse Ox 78 20 152/71 97 03/09/23 17:39 03/09/23 17:39 03/09/23 17:39 03/09/23 17:39 - General no distress, no pain - Eyes normal ocular movement, no pale - ENT normal nares, normal mucosa - Respiratory normal expansion, normal respiratory effort - Abdomen Abdomen: soft, non tender Results - Labs 03/09/23 20:40 03/11/23 06:57 Abnormal Lab Results - Last 24 Hours (Table) 03/10/23 03/10/23 03/11/23 Range/Units 16:36 19:02 06:26 Sodium (137-145) mmol/L BUN (7-17) mg/dL Creatinine (0.52-1.04) mg/dL Glucose (74-99) mg/dL POC Glucose (mg/dL) 331 H 357 H 189 H (70-110) mg/dL Hemoglobin A1c (<=6.0) % 03/11/23 03/11/23 03/11/23 Range/Units 06:57 06:57 11:45 Sodium 136 L (137-145) mmol/L BUN 38 H (7-17) mg/dL Creatinine 1.82 H (0.52-1.04) mg/dL Glucose 156 H (74-99) mg/dL POC Glucose (mg/dL) 401 H (70-110) mg/dL Hemoglobin A1c 11.9 H (<=6.0) % Diabetes panel 03/11/23 03/11/23 Range/Units 06:57 06:57 Sodium 136 L (137-145) mmol/L Potassium 4.9 (3.5-5.1) mmol/L Chloride 107 (98-107) mmol/L Carbon Dioxide 25 (22-30) mmol/L BUN 38 H (7-17) mg/dL Creatinine 1.82 H (0.52-1.04) mg/dL Glucose 156 H (74-99) mg/dL Hemoglobin A1c 11.9 H (<=6.0) % Calcium 9.0 (8.4-10.2) mg/dL Calcium panel 03/11/23 Range/Units 06:57 Calcium 9.0 (8.4-10.2) mg/dL Pituitary panel 03/11/23 Range/Units 06:57 Sodium 136 L (137-145) mmol/L Potassium 4.9 (3.5-5.1) mmol/L Chloride 107 (98-107) mmol/L Carbon Dioxide 25 (22-30) mmol/L BUN 38 H (7-17) mg/dL Creatinine 1.82 H (0.52-1.04) mg/dL Glucose 156 H (74-99) mg/dL Calcium 9.0 (8.4-10.2) mg/dL Adrenal panel 03/11/23 Range/Units 06:57 Sodium 136 L (137-145) mmol/L Potassium 4.9 (3.5-5.1) mmol/L Chloride 107 (98-107) mmol/L Carbon Dioxide 25 (22-30) mmol/L BUN 38 H (7-17) mg/dL Creatinine 1.82 H (0.52-1.04) mg/dL Glucose 156 H (74-99) mg/dL Calcium 9.0 (8.4-10.2) mg/dL Assessment and Plan Assessment: 67-year-old female with acute kidney injury. 11-1.8 from 1.3, and evidence of bilateral hydronephrosis, possibly chronic in nature given that it was evidence of bilateral renal pelvis dilation back in 2021 -Obtain a bladder scan to assess patient voiding -CT abdomen and pelvis to evaluate for any obstructive etiology of her h ydronephrosis -Continue to trend creatinine
[2023-03-11 16:44] LABS: Glucose,Whole Blood 193 mg/dL (70-110)
[2023-03-11] MEDS: QUEtiapine 25 MG TAB PO SCH (20:28)
[2023-03-11] MEDS ORDERED: risperiDONE 0.5 MG TAB PO STA (20:42)
[2023-03-11 21:04] LABS: Glucose,Whole Blood 298 mg/dL (70-110)
[2023-03-11] MEDS: ATORVASTATIN 20 MG TAB PO SCH (21:55)
[2023-03-11] MEDS: ENOXAPARIN 30 MG/0.3 ML SYRINGE SQ SCH (21:55)
[2023-03-12] MEDS ORDERED: risperiDONE 1 MG TAB PO STA (06:07)
[2023-03-12 06:08] LABS: Glucose,Whole Blood 376 mg/dL (70-110)
[2023-03-12] MEDS: INSULIN ASPART (NovoLOG) 100 UNIT/ML VIAL SQ SCH ×4 (06:23→22:13)
[2023-03-12] MEDS: glipiZIDE 10 MG TAB PO SCH ×2 (06:23→17:33)
[2023-03-12 08:07] LABS: African American GFR (CKD) 39 (>60 ml/min/1.73 sqM); Anion Gap 7 mmol/L; Blood Urea Nitrogen 38 mg/dL (7-17); Calcium 9.3 mg/dL (8.4-10.2); Carbon Dioxide 27 mmol/L (22-30); Chloride 99 mmol/L (98-107); Glucose 356 mg/dL (74-99); Non-African American GFR(CKD) 34 (>60 ml/min/1.73 sqM); Potassium 5.2 mmol/L (3.5-5.1); Sodium 133 mmol/L (137-145)
[2023-03-12] MEDS: PIOGLITAZONE 30 MG TAB PO SCH (08:20)
[2023-03-12] MEDS: NICOTINE 14MG/24HR PATCH TRANSDERM SCH (08:20)
[2023-03-12] MEDS: cloNIDine HCL 0.1 MG TAB PO SCH ×2 (08:20→22:13)
[2023-03-12] MEDS: VIT A,C & E-LUTEIN-MINERALS 1 EACH TAB PO SCH ×2 (08:20→22:14)
--- NOTE | 2023-03-12 11:31 | CT ---
EXAMINATION TYPE: CT renal stones wo con DATE OF EXAM: 03/12/2023 COMPARISON: 11/13/2021 HISTORY: 67-year-old female with bilateral hydronephrosis Right sided abdominal pain, bilateral hydro nephrosis TECHNIQUE: Contiguous axial scanning of the abdomen and pelvis without IV contrast. Coronal and sagit connor reconstructions performed. CT DLP: 405.7 mGycm Automated exposure control for dose reduction was used. FINDINGS: Heart is normal size without pericardial effusion. Some mosaic attenuation in the lower lungs may rel ate to small airways disease. Possible tiny hiatal hernia. Noncontrast appearance of the liver, gallbladder, adrenal glands, spleen, and pancreas within normal limits. There is severe bilateral hydronephrosis. Unable to follow the right ureter. The degree of hydronephr osis has increased from 11/13/2021. Underlying UPJ obstruction is possible. On the left, we are able to visualize the dilated proximal left ureter. There may be an underlying le breonna measuring 3.8 x 1.3 cm within the mid ureter, referred to axial image 84 and coronal image or th e 5. This seems to represent a transition point from the left ureter. No nephrolithiasis. Large stool burden. Normal appendix. No pericolonic inflammatory change seen. No dilated small bowel, free fluid, free air. Bladder urine distended. Uterus appears to be obliquely towards the left. Ovaries not clearly disting uished from clustered small bowel loops. Numerous pelvic phleboliths. There is mild pelvic floor rela xation. No abnormal fluid collection in the pelvis or obvious pelvic lymphadenopathy. Bones: Mild degenerative change of the hips. Degenerated levoconvex scoliosis lumbar spine. IMPRESSION: 1. SEVERE BILATERAL HYDRONEPHROSIS. THE DEGREE OF HYDRONEPHROSIS HAS PROGRESSED FROM 11/13/2021. NO NE PHROLITHIASIS IS IDENTIFIED. 2. UNABLE TO FOLLOW THE RIGHT URETER. IT DOES NOT APPEAR TO BE OVERTLY DILATED. CONSIDER UNDERLYING U PJ OBSTRUCTION HERE. 3. ON THE LEFT HOWEVER, THE PROXIMAL URETER IS DILATED AND THERE APPEARS TO BE A 3.8 X 1.3 CM FILLING DEFECT IN THE MID LEFT URETER SERVING A TRANSITION POINT. A POLYP, BLOOD CLOT, FUNGAL BALL, OR UR OTHELIAL NEOPLASM ARE ALL CONSIDERATIONS. FURTHER UROLOGY EVALUATION RECOMMENDED. 4. LARGE STOOL BURDEN, POSSIBLE CONSTIPATION. 5. MILD PELVIC FLOOR RELAXATION.
[2023-03-12 12:13] LABS: Glucose,Whole Blood 286 mg/dL (70-110)
[2023-03-12] MEDS: bisacodyL 5 MG TABLET.DR PO STA ×2 (12:22→12:25)
[2023-03-12] MEDS: metFORMIN 500 MG TAB PO SCH ×3 (12:23→22:13)
[2023-03-12] MEDS ORDERED: OLANZapine 2.5 MG TAB PO PRN (14:03)
[2023-03-12 14:04] VITALS: BMI 21.5
--- NOTE | 2023-03-12 14:06 | P.PN ---
Progress Note - Text Progress Note Date: 03/12/23 Chief Complaint: Elevated blood sugar This is a pleasant 67-year-old patient who follows a Dr. Amaya. Chronic stable medical conditions include diabetes, GERD, ALLERGY-induced asthma, kidney stones. Lives in an apartment. Has underlying cognitive impairment. Patient presented to ER with some confusion and high sugars. Blood glucose was 412. Negative for blood acetone. Patient is on oral hypoglycemic. It is unclear to the circumstances who brought the patient in order to send the patient to the ER. Patient cannot tell for herself. Patient is able to answer questions but not able to give any detailed answers. For example she does not know protocol to the hospital. It seems she does take her medications. Otherwise independent and active. But forgetful. Case management trying to get hold of guardian. Denies any fever and chills. No diarrhea. No pain. Is a smoker. March 11: Accu-Cheks remaining high. Glyburide added. Patient not a candidate for insulin. On IV fluids. Worsening of creatinine. Metformin stop. Actos started yesterday. Patient slept well last night with Seroquel. Patient will need a more supervised setting. March 12: Patient again was running about agitated yesterday evening. Sitter was ordered. Did sleep some last night. Seroquel been increased to 50 mg at night. 12.5 mg a morning. Patient refused to eat today. Computed tomography scan is showing some obstruction of the left ureter. Being followed by urology. Patient was started on glyburide yesterday. Active Medications Atorvastatin Calcium (Atorvastatin 20 Mg Tab) 20 mg PO HS [facility] Last Admin: 03/11/23 21:55 Dose: 20 mg Clonidine (Clonidine Hcl 0.1 Mg Tab) 0.1 mg PO BID [facility] Last Admin: 03/12/23 08:20 Dose: 0.1 mg Dextrose/Water (Dextrose 50% Syringe 50 Ml) 25 ml IVP PER PROTOCOL PRN; Protocol PRN Reason: Hypoglycemia Enoxaparin Sodium (Enoxaparin 30 Mg/0.3 Ml Syringe) 30 mg SQ HS [facility] Last Admin: 03/11/23 21:55 Dose: 30 mg Glipizide (Glipizide 10 Mg Tab) 10 mg PO AC-BID [facility] Last Admin: 03/12/23 06:23 Dose: 10 mg Sodium Chloride (Saline 0.9%) 1,000 mls @ 130 mls/hr IV .Q7H42M [facility] Last Admin: 03/11/23 22:02 Dose: Not Given Insulin Aspart (Insulin Aspart (Novolog) 100 Unit/Ml Vial) 0 unit SQ ACHS [facility]; Protocol Last Admin: 03/12/23 12:25 Dose: Not Given Metformin HCl (Metformin 500 Mg Tab) 1,000 mg PO DAILY [facility] Last Admin: 03/12/23 12:25 Dose: Not Given Metformin HCl (Metformin 500 Mg Tab) 500 mg PO HS [facility] Multivitamins/Minerals (Vit A,C & G-Qlpseh-Jqalqdzs 1 Each Tab) 1 each PO BID [facility] Last Admin: 03/12/23 08:20 Dose: 1 each Naloxone HCl (Naloxone 0.4 Mg/Ml 1 Ml Vial) 0.2 mg IV Q2M PRN PRN Reason: Opioid Reversal Nicotine (Nicotine 14mg/24hr Patch) 1 patch TRANSDERM DAILY [facility] Last Admin: 03/12/23 08:20 Dose: 1 patch Ondansetron HCl (Ondansetron 4 Mg/2 Ml Vial) 4 mg IVP Q8HR PRN PRN Reason: Nausea And Vomiting Pioglitazone HCl (Pioglitazone 30 Mg Tab) 30 mg PO DAILY [facility] Last Admin: 03/12/23 08:20 Dose: 30 mg Quetiapine Fumarate (Quetiapine 50 Mg Tab) 50 mg PO [facility] Quetiapine Fumarate (Quetiapine 25 Mg Tab) 12.5 mg PO DAILY [facility] Past medical history to include: Cognitive impairment, diabetes, essential hypertension, hyperlipidemia, Social history: Smoker. Lives in independent i apartment Physical examination: VITAL SIGNS: 97.6, 85, 17, 149/76, 98% room air GENERAL: BMI 21.6, sitting up in a chair, watching TV, refusing to eat EYES: Pupils equal. Conjunctiva normal. HEENT: External appearance of nose and ears normal, oral cavity grossly normal. NECK: JVD not raised; masses not palpable. HEART: First and second heart sounds are normal; no edema. LUNGS: Respiratory rate normal; diminished breath sounds. ABDOMEN: Soft, nontender, liver spleen not palpable, no masses palpable. PSYCH: Patient knows her name no/in the hospital, cannot tell the year. Cannot tell who brought her into why she is here.l. MUSCULOSKELETAL:No Clubbing/cyanosis;muscles-grossly intact INVESTIGATIONS, reviewed in the clinical context: Renal CT without contrast: Severe bilateral hydronephrosis. There may be underlying lesion 3.8 x 1.3 cm within the mid ureter on the left side. Large stool burden. March 12: Potassium 5.2 BUN 38 creatinine 1.55 Renal ultrasound: Bilateral hydronephrosis, moderate to severe March 11: Potassium 4.9 BUN 38 creatinine 1.8 to HbA1c 11.9 March 09: White count 5.9 hemoglobin 11.7 platelets 274 sodium 132 potassium 4.7 BUN 44 creatinine 1.41 glucose 412 Serum acetone negative EKG tracing personally reviewed by me-normal sinus rhythm Chest x-ray film personally reviewed by me-hyperinflation Previous labs: January 2023 creatinine 1.33. November 2021 creatinine 0.7 to Assessment and plan: -Nonketotic hyperosmolar hyperglycemia: Slow to respond IV fluids. Glucotrol 10 mg twice a day. Actos 30 mg a day. Metformin. -Chronic nicotine dependence, cigarette smoker Nicotine patch -COPD in a current smoker Albuterol when necessary - severe bilateral hydronephrosis. Bladder scan ordered. Follow-up with urology. -underlying lesion 3.8 x 1.3 cm within the mid ureter on the left side. Follow-up with urology -Essential hypertension Catapres 0.1 mg twice a day -Acute versus chronic kidney disease.: Worsening Renal ultrasound shows bilateral hydronephrosis. Follow renal function -Severe Cognitive impairment. along with agitation Increase Seroquel to 50 mg at night, 12.5 mg the morning. Use Zyprexa when necessary -Diabetes mellitus type 2, on oral hypoglycemic Resume metformin. Follow Accu-Cheks. -Hyperlipidemia Lipitor 20 -Full code Patient has a legal guardian Continue glyburide, Actos, metformin. Given patient not really a candidate for insulin because of underlying dementia acceptable to have Accu-Cheks and 200s. Increase Seroquel to 50 mg at night and 12 point 5 in the morning. Use Zyprexa when necessary for agitation
[2023-03-12 16:35] LABS: Glucose,Whole Blood 426 mg/dL (70-110)
[2023-03-12 20:53] LABS: Glucose,Whole Blood 218 mg/dL (70-110)
[2023-03-12] MEDS: SODIUM CHLORIDE 0.9% 1,000 ML IV SCH ×3 (21:48→22:57)
[2023-03-12] MEDS: ATORVASTATIN 20 MG TAB PO SCH (22:13)
[2023-03-12] MEDS: QUEtiapine 50 MG TAB PO SCH (22:13)
[2023-03-12] MEDS: ENOXAPARIN 30 MG/0.3 ML SYRINGE SQ SCH (22:13)
[2023-03-13] MEDS: cloNIDine HCL 0.1 MG TAB PO SCH ×3 (01:41→21:17)
[2023-03-13] MEDS: QUEtiapine 50 MG TAB PO SCH (01:42)
[2023-03-13 06:31] LABS: Glucose,Whole Blood 278 mg/dL (70-110)
[2023-03-13] MEDS: INSULIN ASPART (NovoLOG) 100 UNIT/ML VIAL SQ SCH ×4 (06:50→21:16)
[2023-03-13] MEDS: glipiZIDE 10 MG TAB PO SCH ×2 (07:53→16:38)
[2023-03-13] MEDS ORDERED: QUEtiapine 25 MG TAB PO SCH (09:00)
[2023-03-13] MEDS: NICOTINE 14MG/24HR PATCH TRANSDERM SCH (10:11)
[2023-03-13] MEDS: metFORMIN 500 MG TAB PO SCH ×2 (10:17→21:16)
[2023-03-13] MEDS: VIT A,C & E-LUTEIN-MINERALS 1 EACH TAB PO SCH ×2 (10:17→21:17)
[2023-03-13] MEDS: PIOGLITAZONE 30 MG TAB PO SCH (10:17)
--- NOTE | 2023-03-13 11:40 | P.PN ---
Subjective Progress Note Date: 03/13/23 No acute overnight events, denies any gross hematuria or flank pain Objective - Vital Signs Vital signs: Vital Signs Temp 97.6 F 03/13/23 09:00 Pulse 81 03/13/23 09:00 Resp 20 03/13/23 09:00 BP 191/48 03/13/23 09:00 Pulse Ox 99 03/13/23 09:00 FiO2 Intake & Output 03/12/23 03/13/23 03/13/23 18:59 06:59 18:59 Intake Total 0 Balance 0 Weight 53.524 kg Intake: Intake, IV Titration 0 Amount Sodium Chloride 0.9% 1, 0 000 ml @ 130 mls/hr IV . Q7H42M [facility] Rx#:[id number] Other: # Voids 5 2 - Constitutional General appearance: Present: no acute distress - Gastrointestinal General gastrointestinal: Present: soft. Absent: tenderness - Labs CBC & Chem 7: 03/09/23 20:40 03/12/23 06:49 Labs: Abnormal Lab Results - Last 24 Hours (Table) 03/12/23 03/12/23 03/12/23 Range/Units 12:09 16:33 20:51 POC Glucose (mg/dL) 286 H 426 H 218 H (70-110) mg/dL 03/13/23 Range/Units 06:29 POC Glucose (mg/dL) 278 H (70-110) mg/dL Assessment and Plan Assessment: 67-year-old female with acute kidney injury. Creatinine 1.8, improved to 1.5. Of note creatinine was 1.3 in January. Underwent a CT abdomen and pelvis yesterday which showed evidence of bilateral hydronephrosis, there is a concerning left ureteral mass. I discussed these findings with the patient and her daughter Ashley over the phone. Discussed the possibility this could be a clot versus a transitional cell carcinoma versus debris within the ureter. I recommend further evaluation with retrograde pyelogram and a ureteroscopy. Discussed the procedure with the daughter in detail discussed risks and benefits and rationale of doing this. Given patient's ongoing mental health issues, she'll be better served that this be done as an inpatient rather be arranged as an outpatient -OR for cystoscopy with bilateral ureteroscopy and left diagnostic ureteroscopy, possible bilateral stent insertion on March 15.
[2023-03-13 11:46] LABS: Glucose,Whole Blood 372 mg/dL (70-110)
--- NOTE | 2023-03-13 15:27 | P.PN ---
Progress Note - Text Progress Note Date: 03/13/23 Chief Complaint: Elevated blood sugar This is a pleasant 67-year-old patient who follows a Dr. Amaya. Chronic stable medical conditions include diabetes, GERD, ALLERGY-induced asthma, kidney stones. Lives in an apartment. Has underlying cognitive impairment. Patient presented to ER with some confusion and high sugars. Blood glucose was 412. Negative for blood acetone. Patient is on oral hypoglycemic. It is unclear to the circumstances who brought the patient in order to send the patient to the ER. Patient cannot tell for herself. Patient is able to answer questions but not able to give any detailed answers. For example she does not know protocol to the hospital. It seems she does take her medications. Otherwise independent and active. But forgetful. Case management trying to get hold of guardian. Denies any fever and chills. No diarrhea. No pain. Is a smoker. March 11: Accu-Cheks remaining high. Glyburide added. Patient not a candidate for insulin. On IV fluids. Worsening of creatinine. Metformin stop. Actos started yesterday. Patient slept well last night with Seroquel. Patient will need a more supervised setting. March 12: Patient again was running about agitated yesterday evening. Sitter was ordered. Did sleep some last night. Seroquel been increased to 50 mg at night. 12.5 mg a morning. Patient refused to eat today. Computed tomography scan is showing some obstruction of the left ureter. Being followed by urology. Patient was started on glyburide yesterday. March 13: Patient rather agitated this morning. When I saw the patient sitting up in a chair. Oral intake really able to. Had a sitter. Accu-Cheks on the higher side. On Glucotrol, Actos, metformin. Will DC Seroquel and to try the patient on Zyprexa. 2.5 mg daily at bedtime. Dr. daniels is planning to do a retrograde pyelogram and ureteral scope . He discussed with the patient's daughter. Past medical history to include: Cognitive impairment, diabetes, essential hypertension, hyperlipidemia, Social history: Smoker. Lives in independent i apartment Physical examination: VITAL SIGNS: 97.6, 90, 16, 103/50, 98% room air GENERAL: BMI 21.6, sitting up in a chair, comfortable EYES: Pupils equal. Conjunctiva normal. HEENT: External appearance of nose and ears normal, oral cavity grossly normal. NECK: JVD not raised; masses not palpable. HEART: First and second heart sounds are normal; no edema. LUNGS: Respiratory rate normal; diminished breath sounds. ABDOMEN: Soft, nontender, liver spleen not palpable, no masses palpable. PSYCH: We'll answer some questions MUSCULOSKELETAL:No Clubbing/cyanosis;muscles-grossly intact INVESTIGATIONS, reviewed in the clinical context: Renal CT without contrast: Severe bilateral hydronephrosis. There may be underlying lesion 3.8 x 1.3 cm within the mid ureter on the left side. Large stool burden. March 12: Potassium 5.2 BUN 38 creatinine 1.55 Renal ultrasound: Bilateral hydronephrosis, moderate to severe March 11: Potassium 4.9 BUN 38 creatinine 1.8 to HbA1c 11.9 March 09: White count 5.9 hemoglobin 11.7 platelets 274 sodium 132 potassium 4.7 BUN 44 creatinine 1.41 glucose 412 Serum acetone negative EKG tracing personally reviewed by me-normal sinus rhythm Chest x-ray film personally reviewed by me-hyperinflation Previous labs: January 2023 creatinine 1.33. November 2021 creatinine 0.7 to Assessment and plan: -Nonketotic hyperosmolar hyperglycemia: Better IV fluids. Glucotrol 10 mg twice a day. Actos 30 mg a day. Metformin. -Chronic nicotine dependence, cigarette smoker Nicotine patch -COPD in a current smoker Albuterol when necessary - severe bilateral hydronephrosis. HEENT followed by urology -underlying lesion 3.8 x 1.3 cm within the mid ureter on the left side. Follow-up with urology -Essential hypertension Catapres 0.1 mg twice a day -Acute versus chronic kidney disease.: Slow to respond Renal ultrasound shows bilateral hydronephrosis. Follow renal function -Severe Cognitive impairment. along with agitation Was done Zyprexa 2.5 mg daily. Haldol when necessary -Diabetes mellitus type 2, on oral hypoglycemic, uncontrolled Resume metformin. Appetite. Actos. -Hyperlipidemia Lipitor 20 -Full code Patient has a legal guardian Continue glyburide, Actos, metformin. DC Seroquel. Start Zyprexa 2.5 mg daily. For urological intervention per Dr. daniels.
[2023-03-13 16:30] LABS: Glucose,Whole Blood 187 mg/dL (70-110)
[2023-03-13 20:26] LABS: Glucose,Whole Blood 196 mg/dL (70-110)
[2023-03-13] MEDS: ENOXAPARIN 30 MG/0.3 ML SYRINGE SQ SCH (21:16)
[2023-03-13] MEDS: ATORVASTATIN 20 MG TAB PO SCH (21:17)
[2023-03-13] MEDS: OLANZapine 2.5 MG TAB PO SCH (21:17)
[2023-03-14 06:09] LABS: Glucose,Whole Blood 302 mg/dL (70-110)
[2023-03-14] MEDS: glipiZIDE 10 MG TAB PO SCH ×2 (06:23→17:00)
[2023-03-14] MEDS: INSULIN ASPART (NovoLOG) 100 UNIT/ML VIAL SQ SCH ×4 (06:24→21:31)
[2023-03-14 07:50] LABS: African American GFR (CKD) 35 (>60 ml/min/1.73 sqM); Anion Gap 3 mmol/L; Blood Urea Nitrogen 45 mg/dL (7-17); Calcium 8.9 mg/dL (8.4-10.2); Carbon Dioxide 28 mmol/L (22-30); Chloride 104 mmol/L (98-107); Glucose 227 mg/dL (74-99); Non-African American GFR(CKD) 30 (>60 ml/min/1.73 sqM); Potassium 4.8 mmol/L (3.5-5.1); Sodium 135 mmol/L (137-145)
[2023-03-14] MEDS: PIOGLITAZONE 30 MG TAB PO SCH (08:27)
[2023-03-14] MEDS: NICOTINE 14MG/24HR PATCH TRANSDERM SCH (08:27)
[2023-03-14] MEDS: metFORMIN 500 MG TAB PO SCH ×2 (08:27→21:31)
[2023-03-14] MEDS: cloNIDine HCL 0.1 MG TAB PO SCH ×2 (08:27→21:31)
[2023-03-14] MEDS: VIT A,C & E-LUTEIN-MINERALS 1 EACH TAB PO SCH ×2 (08:27→21:32)
[2023-03-14 11:10] LABS: Glucose,Whole Blood 176 mg/dL (70-110)
--- NOTE | 2023-03-14 12:54 | P.PN ---
Progress Note - Text Progress Note Date: 03/14/23 Chief Complaint: Elevated blood sugar This is a pleasant 67-year-old patient who follows a Dr. Amaya. Chronic stable medical conditions include diabetes, GERD, ALLERGY-induced asthma, kidney stones. Lives in an apartment. Has underlying cognitive impairment. Patient presented to ER with some confusion and high sugars. Blood glucose was 412. Negative for blood acetone. Patient is on oral hypoglycemic. It is unclear to the circumstances who brought the patient in order to send the patient to the ER. Patient cannot tell for herself. Patient is able to answer questions but not able to give any detailed answers. For example she does not know protocol to the hospital. It seems she does take her medications. Otherwise independent and active. But forgetful. Case management trying to get hold of guardian. Denies any fever and chills. No diarrhea. No pain. Is a smoker. March 11: Accu-Cheks remaining high. Glyburide added. Patient not a candidate for insulin. On IV fluids. Worsening of creatinine. Metformin stop. Actos started yesterday. Patient slept well last night with Seroquel. Patient will need a more supervised setting. March 12: Patient again was running about agitated yesterday evening. Sitter was ordered. Did sleep some last night. Seroquel been increased to 50 mg at night. 12.5 mg a morning. Patient refused to eat today. Computed tomography scan is showing some obstruction of the left ureter. Being followed by urology. Patient was started on glyburide yesterday. March 13: Patient rather agitated this morning. When I saw the patient sitting up in a chair. Oral intake really able to. Had a sitter. Accu-Cheks on the higher side. On Glucotrol, Actos, metformin. Will DC Seroquel and to try the patient on Zyprexa. 2.5 mg daily at bedtime. Dr. daniels is planning to do a retrograde pyelogram and ureteral scope . He discussed with the patient's daughter. March 14: Patient is started on Zyprexa yesterday. Slept well last night. Pleasant this morning. Had about 50% of her breakfast. Will DC sitter. Pe nding intervention per urology Active Medications Atorvastatin Calcium (Atorvastatin 20 Mg Tab) 20 mg PO HS [facility] Last Admin: 03/13/23 21:17 Dose: 20 mg Clonidine (Clonidine Hcl 0.1 Mg Tab) 0.1 mg PO BID [facility] Last Admin: 03/14/23 08:27 Dose: 0.1 mg Dextrose/Water (Dextrose 50% Syringe 50 Ml) 25 ml IVP PER PROTOCOL PRN; Protocol PRN Reason: Hypoglycemia Enoxaparin Sodium (Enoxaparin 30 Mg/0.3 Ml Syringe) 30 mg SQ HS [facility] Last Admin: 03/13/23 21:16 Dose: 30 mg Glipizide (Glipizide 10 Mg Tab) 10 mg PO AC-BID [facility] Last Admin: 03/14/23 06:23 Dose: 10 mg Sodium Chloride (Saline 0.9%) 1,000 mls @ 130 mls/hr IV .Q7H42M [facility] Last Admin: 03/12/23 22:57 Dose: Not Given Insulin Aspart (Insulin Aspart (Novolog) 100 Unit/Ml Vial) 0 unit SQ ACHS [facility]; Protocol Last Admin: 03/14/23 11:53 Dose: 1 unit Metformin HCl (Metformin 500 Mg Tab) 1,000 mg PO DAILY [facility] Last Admin: 03/14/23 08:27 Dose: 1,000 mg Metformin HCl (Metformin 500 Mg Tab) 500 mg PO HS [facility] Last Admin: 03/13/23 21:16 Dose: 500 mg Multivitamins/Minerals (Vit A,C & Y-Kkksdp-Cbkxdpzx 1 Each Tab) 1 each PO BID [facility] Last Admin: 03/14/23 08:27 Dose: 1 each Naloxone HCl (Naloxone 0.4 Mg/Ml 1 Ml Vial) 0.2 mg IV Q2M PRN PRN Reason: Opioid Reversal Nicotine (Nicotine 14mg/24hr Patch) 1 patch TRANSDERM DAILY [facility] Last Admin: 03/14/23 08:27 Dose: 1 patch Olanzapine (Olanzapine 2.5 Mg Tab) 2.5 mg PO HS [facility] Last Admin: 03/13/23 21:17 Dose: 2.5 mg Ondansetron HCl (Ondansetron 4 Mg/2 Ml Vial) 4 mg IVP Q8HR PRN PRN Reason: Nausea And Vomiting Pioglitazone HCl (Pioglitazone 30 Mg Tab) 30 mg PO DAILY [facility] Last Admin: 03/14/23 08:27 Dose: 30 mg Past medical history to include: Cognitive impairment, diabetes, essential hypertension, hyperlipidemia, Social history: Smoker. Lives in independent i apartment Physical examination: VITAL SIGNS: 97.4, 89, 15, 161/60, 98% room air GENERAL: BMI 21.6, sitting up in a chair, comfortable EYES: Pupils equal. Conjunctiva normal. HEENT: External appearance of nose and ears normal, oral cavity grossly normal. NECK: JVD not raised; masses not palpable. HEART: First and second heart sounds are normal; no edema. LUNGS: Respiratory rate normal; diminished breath sounds. ABDOMEN: Soft, nontender, liver spleen not palpable, no masses palpable. PSYCH: She does answer some questions MUSCULOSKELETAL:No Clubbing/cyanosis;muscles-grossly intact INVESTIGATIONS, reviewed in the clinical context: March 14: Potassium 4.8 BUN [address] without contrast: Severe bilateral hydronephrosis. There may be underlying lesion 3.8 x 1.3 cm within the mid ureter on the left side. Large stool burden. March 12: Potassium 5.2 BUN 38 creatinine 1.55 Renal ultrasound: Bilateral hydronephrosis, moderate to severe March 11: Potassium 4.9 BUN 38 creatinine 1.8 to HbA1c 11.9 March 09: White count 5.9 hemoglobin 11.7 platelets 274 sodium 132 potassium 4.7 BUN 44 creatinine 1.41 glucose 412 Serum acetone negative EKG tracing personally reviewed by me-normal sinus rhythm Chest x-ray film personally reviewed by me-hyperinflation Previous labs: January 2023 creatinine 1.33. November 2021 creatinine 0.7 to Assessment and plan: -Nonketotic hyperosmolar hyperglycemia: Better IV fluids. Glucotrol 10 mg twice a day. Actos 30 mg a day. Metformin. -Chronic nicotine dependence, cigarette smoker Nicotine patch -COPD in a current smoker Albuterol when necessary - severe bilateral hydronephrosis. being followed by urology -underlying lesion 3.8 x 1.3 cm within the mid ureter on the left side. Pending intervention per urology -Essential hypertension Catapres 0.1 mg twice a day -Obstructive uropathy leading to chronic kidney disease.: Slow to respond Renal ultrasound shows bilateral hydronephrosis. Follow with neurology -Severe Cognitive impairment. along with agitation Zyprexa 2.5 mg daily. Haldol when necessary -Diabetes mellitus type 2, on oral hypoglycemic, uncontrolled Resume metformin. Appetite. Actos. Glucotrol -Hyperlipidemia Lipitor 20 -Full code Patient has a legal guardian Continue current medications. Pleasant. Responding well to Zyprexa. DC sitter today. Pending intervention per urology.
[2023-03-14] MEDS: SODIUM CHLORIDE 0.9% 1,000 ML IV SCH ×2 (14:15→14:16)
[2023-03-14 16:36] LABS: Glucose,Whole Blood 264 mg/dL (70-110)
[2023-03-14 20:24] LABS: Glucose,Whole Blood 200 mg/dL (70-110)
[2023-03-14] MEDS: ENOXAPARIN 30 MG/0.3 ML SYRINGE SQ SCH (21:31)
[2023-03-14] MEDS: ATORVASTATIN 20 MG TAB PO SCH (21:31)
[2023-03-14] MEDS: OLANZapine 2.5 MG TAB PO SCH (21:32)
[2023-03-15 06:12] LABS: Glucose,Whole Blood 153 mg/dL (70-110)
[2023-03-15] MEDS: glipiZIDE 10 MG TAB PO SCH ×2 (06:32→18:38)
[2023-03-15] MEDS: INSULIN ASPART (NovoLOG) 100 UNIT/ML VIAL SQ SCH ×4 (06:32→21:00)
[2023-03-15] MEDS: cloNIDine HCL 0.1 MG TAB PO SCH ×2 (08:19→20:57)
[2023-03-15] MEDS: VIT A,C & E-LUTEIN-MINERALS 1 EACH TAB PO SCH ×2 (08:42→20:58)
[2023-03-15] MEDS: metFORMIN 500 MG TAB PO SCH ×2 (08:42→20:59)
[2023-03-15] MEDS: NICOTINE 14MG/24HR PATCH TRANSDERM SCH (08:42)
[2023-03-15] MEDS: PIOGLITAZONE 30 MG TAB PO SCH (08:42)
[2023-03-15 11:45] LABS: Glucose,Whole Blood 137 mg/dL (70-110)
[2023-03-15] MEDS ORDERED: LACTATED RINGERS 1,000 ML IV ONE (15:02)
[2023-03-15 15:18] LABS: Glucose,Whole Blood 196 mg/dL (70-110)
[2023-03-15] MEDS ORDERED: LIDOCAINE 2% INJ 20 MG/ML (2 ML VIAL) ONE (15:51)
[2023-03-15] MEDS ORDERED: ceFAZolin 1,000 MG VIAL ONE ×2 (15:51→16:15)
[2023-03-15] MEDS ORDERED: PROPOFOL 10 MG/ML 20 ML VIAL IV ONE (15:51)
[2023-03-15] MEDS ORDERED: SODIUM CHLORIDE 0.9% 100 ML BAG ONE (15:51)
[2023-03-15] MEDS ORDERED: fentaNYL (PF) 50 MCG/ML 2 ML AMP ONE (15:51)
[2023-03-15] MEDS ORDERED: SODIUM CHLORIDE 0.9% 100 ML BAG IV ONE (16:15)
[2023-03-15] MEDS ORDERED: SODIUM CHLORIDE 0.9% 100 ML with ceFAZolin 2,000 MG IV ONE ×2 (16:15)
[2023-03-15] MEDS ORDERED: IOPAMIDOL-370 100ML BTL MISCELLANE ONE (16:28)
--- NOTE | 2023-03-15 17:20 | P.PN ---
Subjective No acute overnight events, creatinine 1.7 Objective - Vital Signs Vital signs: Vital Signs Temp 98.5 F 03/15/23 15:03 Pulse 74 03/15/23 15:03 Resp 16 03/15/23 15:03 BP 139/65 03/15/23 15:03 Pulse Ox 96 03/15/23 15:03 FiO2 Intake & Output 03/14/23 03/15/23 03/15/23 18:59 06:59 18:59 Intake Total 720 1100 Balance 720 1100 Weight 53.524 kg Intake: IV 1100 Oral 240 Blood Product 480 Other: # Voids 5 2 - Labs CBC & Chem 7: 03/09/23 20:40 03/14/23 06:30 Labs: Abnormal Lab Results - Last 24 Hours (Table) 03/14/23 03/15/23 03/15/23 Range/Units 20:21 06:11 11:41 POC Glucose (mg/dL) 200 H 153 H 137 H (70-110) mg/dL 03/15/23 Range/Units 15:15 POC Glucose (mg/dL) 196 H (70-110) mg/dL Assessment and Plan Assessment: 67-year-old female with acute kidney injury. Creatinine 1.8, improved to 1.7 . Of note creatinine was 1.3 in January. Underwent a CT abdomen and pelvis yesterday which showed evidence of bilateral hydronephrosis, there is a concerning left ureteral mass. I discussed these findings with the patient and her daughter Ashley over the phone. Discussed the possibility this could be a clot versus a transitional cell carcinoma versus debris within the ureter. I recommend further evaluation with retrograde pyelogram and a ureteroscopy. Discussed the procedure with the daughter in detail discussed risks and benefits and rationale of doing this. Given patient's ongoing mental health issues, she'll be better served that this be done as an inpatient rather be arranged as an outpatient. At this time a 3 to proceed with a cystoscopy with bilateral retrograde pyelogram left ureteroscopy and possible bilateral stents .
--- NOTE | 2023-03-15 17:26 | P.OP ---
Date of Procedure: 03/15/23 Preoperative Diagnosis: Left ureteral mass, bilateral hydronephrosis Postoperative Diagnosis: same Procedure(s) Performed: Cystoscopy, bilateral retrograde pyelogram, left ureteroscopy, ureteral mass biopsy and bilateral stent insertion Implants: 6-English by 26 cm stents placed bilaterally Anesthesia: TYLER Surgeon: Hugo Garcia Estimated Blood Loss (ml): 10 Pathology: other (Left ureteral cytology, left ureteral mass biopsy) Condition: stable Disposition: PACU Indications for Procedure: 67-year-old female with acute kidney injury. Creatinine 1.8, improved to 1.7 . Of note creatinine was 1.3 in January. Underwent a CT abdomen and pelvis yesterday which showed evidence of bilateral hydronephrosis, there is a concerning left ureteral mass. I discussed these findings with the patient and her daughter Ashley over the phone. Discussed the possibility this could be a clot versus a transitional cell carcinoma versus debris within the ureter. I recommend further evaluation with retrograde pyelogram and a ureteroscopy. Discussed the procedure with the daughter in detail discussed risks and benefits and rationale of doing this. Given patient's ongoing mental health issues, she'll be better served that this be done as an inpatient rather be arranged as an outpatient. At this time a 3 to proceed with a cystoscopy with bilateral retrograde pyelogram left ureteroscopy and possible bilateral stent Operative Findings: Large mass involving the left ureter, completely occluding the left ureter unable to get contrast past the mass. I was able to navigate an 0.35 Glidewire past the mass and into the kidney Description of Procedure: Patient brought to the operating room, general anesthesia was induced. She was prepped and draped in sterile fashion and placed in dorsal lithotomy position. Cystoscopy fitted with 21-English sheath was inserted per urethra, cystoscopy was performed which showed no abnormality within the bladder. Attention was then carried to the right ureteral orifice which was intubated with an open-ended catheter, retrograde Polygram was performed on that side which showed no filling defect but there was significant hydronephrosis and torturous ureter. Given this finding and acute kidney injury of the patient decision was made to proceed with a stent. At this time a Glidewire was advanced through the catheter the catheter was removed with the wire in place. Next a 6 x 26-English stent was passed over the wire the proximal curl was visualized on fluoroscopy and the distal curl was visualized using the cystoscope, a hydronephrotic drip was appreciated. This time attention was carried to the left ureteral orifice which was intubated with an open-ended catheter, retrograde pyelogram was performed which showed no filling defect along the distal ureter, but at the level of the mid ureter there was a large filling defect and no contrast seen going past the point of the filling defect, at this time I attempted to pass a wire through the catheter and into the kidney but resistance was met at the point of the filling defect. At this time a semirigid ureteroscope was advanced through the urethra and up the left ureteral orifice, at this point the scope was advanced into the area of the filling defect, at this point I visualized a large mass completely occluding the ureter. It was highly concerning for transitional cell carcinoma. Using the biopsy forceps multiple biopsies was taken of the mass, ureteral cytology was also obtained. At this time I was able to advance a Glidewire past the mass and into the kidney. At this time the ureteroscope was withdrawn pullback ureteroscopy was performed showed no additional masses within the distal ureter or injury to ureter. Next a ureteral stent was advanced over the wire, the proximal curl was visualized on fluoroscopy and the distal curl was visualized using the cystoscope. There was a hydronephrotic drip appreciated from the stent. At this point the bladder was emptied and the patient was awakened from anesthesia and taken to recovery in stable condition
[2023-03-15] MEDS ORDERED: KETOROLAC 15 MG/ML 1 ML VIAL IVP ONE (18:05)
[2023-03-15] MEDS ORDERED: LABETALOL 5 MG/ML VIAL MDV IVP ONE (18:07)
--- NOTE | 2023-03-15 18:09 | FL ---
Intraoperative/procedural fluoroscopic services were provided. Total fluoroscopy time is 1 minute 19 seconds with a total of 5 submitted images to PACS. Please see the operative/procedural note for furt her details. DAP: 6.6898 Gycm2
[2023-03-15] MEDS ORDERED: DEXAMETHASONE SOD PHOSPHATE 4 MG/ML 1 ML VIAL IV ONE (18:33)
[2023-03-15] MEDS ORDERED: LIDOCAINE 1% (10MG/ML) FOR IV START INTRADERMA PRN (18:33)
[2023-03-15] MEDS ORDERED: ONDANSETRON 4 MG/2 ML VIAL IVP ONE (18:33)
[2023-03-15] MEDS ORDERED: HYDROmorphone 0.5 MG/0.5 ML SYRINGE IVP PRN (18:33)
[2023-03-15] MEDS ORDERED: METOCLOPRAMIDE 5 MG/ML 2 ML VIAL IVP PRN (18:33)
[2023-03-15] MEDS ORDERED: LACTATED RINGERS 1,000 ML IV SCH (18:33)
--- NOTE | 2023-03-15 20:03 | P.PN ---
Progress Note - Text Progress Note Date: 03/15/23 Chief Complaint: Elevated blood sugar This is a pleasant 67-year-old patient who follows a Dr. Amaya. Chronic stable medical conditions include diabetes, GERD, ALLERGY-induced asthma, kidney stones. Lives in an apartment. Has underlying cognitive impairment. Patient presented to ER with some confusion and high sugars. Blood glucose was 412. Negative for blood acetone. Patient is on oral hypoglycemic. It is unclear to the circumstances who brought the patient in order to send the patient to the ER. Patient cannot tell for herself. Patient is able to answer questions but not able to give any detailed answers. For example she does not know protocol to the hospital. It seems she does take her medications. Otherwise independent and active. But forgetful. Case management trying to get hold of guardian. Denies any fever and chills. No diarrhea. No pain. Is a smoker. March 11: Accu-Cheks remaining high. Glyburide added. Patient not a candidate for insulin. On IV fluids. Worsening of creatinine. Metformin stop. Actos started yesterday. Patient slept well last night with Seroquel. Patient will need a more supervised setting. March 12: Patient again was running about agitated yesterday evening. Sitter was ordered. Did sleep some last night. Seroquel been increased to 50 mg at night. 12.5 mg a morning. Patient refused to eat today. Computed tomography scan is showing some obstruction of the left ureter. Being followed by urology. Patient was started on glyburide yesterday. March 13: Patient rather agitated this morning. When I saw the patient sitting up in a chair. Oral intake really able to. Had a sitter. Accu-Cheks on the higher side. On Glucotrol, Actos, metformin. Will DC Seroquel and to try the patient on Zyprexa. 2.5 mg daily at bedtime. Dr. daniels is planning to do a retrograde pyelogram and ureteral scope . He discussed with the patient's daughter. March 14: Patient is started on Zyprexa yesterday. Slept well last night. Pleasant this morning. Had about 50% of her breakfast. Will DC sitter. Pe nding intervention per urology March 15: Patient was seen this morning. Pleasant. Sitting with a window. Nothing by mouth for procedure this afternoon. Slept well. This afternoon patient was taken down to the OR. Bilateral ureteral stent placement. Left ureteral mass was encountered, and biopsies taken. Active Medications Atorvastatin Calcium (Atorvastatin 20 Mg Tab) 20 mg PO HS [facility] Last Admin: 03/14/23 21:31 Dose: 20 mg Clonidine (Clonidine Hcl 0.1 Mg Tab) 0.1 mg PO BID [facility] Last Admin: 03/15/23 08:19 Dose: 0.1 mg Dextrose/Water (Dextrose 50% Syringe 50 Ml) 25 ml IVP PER PROTOCOL PRN; Protocol PRN Reason: Hypoglycemia Enoxaparin Sodium (Enoxaparin 30 Mg/0.3 Ml Syringe) 30 mg SQ HS [facility] Last Admin: 03/14/23 21:31 Dose: Not Given Glipizide (Glipizide 10 Mg Tab) 10 mg PO AC-BID [facility] Last Admin: 03/15/23 18:38 Dose: Not Given Hydromorphone HCl (Hydromorphone 0.5 Mg/0.5 Ml Syringe) 0.5 mg IVP Q5M PRN PRN Reason: Phase 1 or 2 - Pain Control Stop: 03/15/23 23:00 Lactated Ringer's (Lactated Ringers) 1,000 mls @ 20 mls/hr IV .Q24H [facility] Last Admin: 03/15/23 18:39 Dose: Not Given Insulin Aspart (Insulin Aspart (Novolog) 100 Unit/Ml Vial) 0 unit SQ ACHS [facility]; Protocol Last Admin: 03/15/23 18:38 Dose: Not Given Lidocaine HCl (Lidocaine 1% (10mg/Ml) For Iv Start) 0.1 ml INTRADERMA PER PROTOCOL PRN PRN Reason: IV Start Metformin HCl (Metformin 500 Mg Tab) 1,000 mg PO DAILY [facility] Last Admin: 03/15/23 08:42 Dose: Not Given Metformin HCl (Metformin 500 Mg Tab) 500 mg PO HS [facility] Last Admin: 03/14/23 21:31 Dose: 500 mg Metoclopramide HCl (Metoclopramide 5 Mg/Ml 2 Ml Vial) 10 mg IVP ONCE PRN PRN Reason: Phase 1 or 2 - Nausea/Vomiting Stop: 03/15/23 23:00 Multivitamins/Minerals (Vit A,C & S-Viepbi-Yionooor 1 Each Tab) 1 each PO BID [facility] Last Admin: 03/15/23 08:42 Dose: Not Given Naloxone HCl (Naloxone 0.4 Mg/Ml 1 Ml Vial) 0.2 mg IV Q2M PRN PRN Reason: Opioid Reversal Nicotine (Nicotine 14mg/24hr Patch) 1 patch TRANSDERM DAILY [facility] Last Admin: 03/15/23 08:42 Dose: Not Given Olanzapine (Olanzapine 2.5 Mg Tab) 2.5 mg PO HS [facility] Last Admin: 03/14/23 21:32 Dose: 2.5 mg Ondansetron HCl (Ondansetron 4 Mg/2 Ml Vial) 4 mg IVP Q8HR PRN PRN Reason: Nausea And Vomiting Last Admin: 03/15/23 15:19 Dose: 4 mg Pioglitazone HCl (Pioglitazone 30 Mg Tab) 30 mg PO DAILY [facility] Last Admin: 03/15/23 08:42 Dose: Not Given Past medical history to include: Cognitive impairment, diabetes, essential hypertension, hyperlipidemia, Social history: Smoker. Lives in independent i apartment Physical examination: VITAL SIGNS: 97.2, 67, 16, 168/80, 100% on 6 L GENERAL: BMI 21.6, vitamin Ami, comfortable EYES: Pupils equal. Conjunctiva normal. HEENT: External appearance of nose and ears normal, oral cavity grossly normal. NECK: JVD not raised; masses not palpable. HEART: First and second heart sounds are normal; no edema. LUNGS: Respiratory rate normal; diminished breath sounds. ABDOMEN: Soft, nontender, liver spleen not palpable, no masses palpable. PSYCH: She does answer some questions. Pleasantly confused MUSCULOSKELETAL:No Clubbing/cyanosis;muscles-grossly intact INVESTIGATIONS, reviewed in the clinical context: March 14: Potassium 4.8 BUN [address] without contrast: Severe bilateral hydronephrosis. There may be underlying lesion 3.8 x 1.3 cm within the mid ureter on the left side. Large stool burden. March 12: Potassium 5.2 BUN 38 creatinine 1.55 Renal ultrasound: Bilateral hydronephrosis, moderate to severe March 11: Potassium 4.9 BUN 38 creatinine 1.8 to HbA1c 11.9 March 09: White count 5.9 hemoglobin 11.7 platelets 274 sodium 132 potassium 4.7 BUN 44 creatinine 1.41 glucose 412 Serum acetone negative EKG tracing personally reviewed by me-normal sinus rhythm Chest x-ray film personally reviewed by me-hyperinflation Previous labs: January 2023 creatinine 1.33. November 2021 creatinine 0.7 to Assessment and plan: -Nonketotic hyperosmolar hyperglycemia: Better IV fluids. Glucotrol 10 mg twice a day. Actos 30 mg a day. Metformin. -Chronic nicotine dependence, cigarette smoker Nicotine patch -COPD in a current smoker Albuterol when necessary - severe bilateral hydronephrosis. being followed by urology -underlying lesion 3.8 x 1.3 cm within the mid ureter on the left side. Biopsy taken. -Essential hypertension Catapres 0.1 mg twice a day -Obstructive uropathy leading to chronic kidney disease.: Slow to respond Renal ultrasound shows bilateral hydronephrosis. Bilateral ureteral stent placed on March [address] daniels. -Severe Cognitive impairment. along with agitation: Stabilized Zyprexa 2.5 mg daily. Haldol when necessary -Diabetes mellitus type 2, on oral hypoglycemic, uncontrolled metformin. . Actos. Glucotrol -Hyperlipidemia Lipitor 20 -Full code Patient has a legal guardian Bilateral stent in the ureter placed. Biopsy of the left ureter mass. Other medications to continue. Patient stable for discharge.
[2023-03-15 20:35] LABS: Glucose,Whole Blood 221 mg/dL (70-110)
[2023-03-15] MEDS: ATORVASTATIN 20 MG TAB PO SCH (20:58)
[2023-03-15] MEDS: OLANZapine 2.5 MG TAB PO SCH (20:59)
[2023-03-15] MEDS: ENOXAPARIN 30 MG/0.3 ML SYRINGE SQ SCH (21:01)
[2023-03-16] MEDS: INSULIN ASPART (NovoLOG) 100 UNIT/ML VIAL SQ SCH ×4 (07:40→23:10)
[2023-03-16] MEDS: cloNIDine HCL 0.1 MG TAB PO SCH ×2 (09:03→23:11)
[2023-03-16] MEDS: glipiZIDE 10 MG TAB PO SCH ×2 (09:03→18:06)
[2023-03-16] MEDS: metFORMIN 500 MG TAB PO SCH ×2 (09:03→23:11)
[2023-03-16] MEDS: NICOTINE 14MG/24HR PATCH TRANSDERM SCH (09:04)
[2023-03-16] MEDS: PIOGLITAZONE 30 MG TAB PO SCH (09:04)
[2023-03-16] MEDS: VIT A,C & E-LUTEIN-MINERALS 1 EACH TAB PO SCH ×2 (09:04→23:11)
[2023-03-16 11:45] LABS: Glucose,Whole Blood 190 mg/dL (70-110)
--- NOTE | 2023-03-16 12:30 | P.PN ---
Subjective Progress Note Date: 03/16/23 Principal diagnosis: Bilateral hydronephrosis, left ureteral mass The patient underwent bilateral ureteral stent insertion yesterday. She also underwent left ureteroscopy with biopsy of a left ureteral tumor. She denies dysuria and hematuria, and has no complaints. Objective - Vital Signs Vital signs: Vital Signs Temp 98.1 F 03/15/23 18:42 Pulse 81 03/15/23 18:42 Resp 18 03/15/23 18:42 BP 121/69 03/15/23 18:42 Pulse Ox 99 03/15/23 18:42 FiO2 Intake & Output 03/15/23 03/16/23 03/16/23 18:59 06:59 18:59 Intake Total 1900 Output Total 0 Balance 1900 Weight 53.524 kg Intake: IV 1900 Output: Estimated Blood Loss 0 Other: Voiding Method Toilet # Voids 2 - Constitutional General appearance: Present: average body habitus, no acute distress - Gastrointestinal General gastrointestinal: Present: soft. Absent: distended, tenderness - Labs CBC & Chem 7: 03/09/23 20:40 03/14/23 06:30 Labs: Abnormal Lab Results - Last 24 Hours (Table) 03/15/23 03/15/23 03/15/23 Range/Units 11:41 15:15 20:24 POC Glucose (mg/dL) 137 H 196 H 221 H (70-110) mg/dL Assessment and Plan (1) Unspecified hydronephrosis Current Visit: Yes Status: Acute Code(s): N13.30 - UNSPECIFIED HYDRONEPHROSIS SNOMED Code(s): 14008655 Plan: The patient has undergone bilateral ureteral stent insertion. The left ureteral biopsy results are pending. She is urologically stable for discharge and will follow up with Dr. Garcia in 1-2 weeks.
--- NOTE | 2023-03-16 17:08 | P.PN ---
Progress Note - Text Progress Note Date: 03/16/23 Chief Complaint: Elevated blood sugar This is a pleasant 67-year-old patient who follows a Dr. Amaya. Chronic stable medical conditions include diabetes, GERD, ALLERGY-induced asthma, kidney stones. Lives in an apartment. Has underlying cognitive impairment. Patient presented to ER with some confusion and high sugars. Blood glucose was 412. Negative for blood acetone. Patient is on oral hypoglycemic. It is unclear to the circumstances who brought the patient in order to send the patient to the ER. Patient cannot tell for herself. Patient is able to answer questions but not able to give any detailed answers. For example she does not know protocol to the hospital. It seems she does take her medications. Otherwise independent and active. But forgetful. Case management trying to get hold of guardian. Denies any fever and chills. No diarrhea. No pain. Is a smoker. March 11: Accu-Cheks remaining high. Glyburide added. Patient not a candidate for insulin. On IV fluids. Worsening of creatinine. Metformin stop. Actos started yesterday. Patient slept well last night with Seroquel. Patient will need a more supervised setting. March 12: Patient again was running about agitated yesterday evening. Sitter was ordered. Did sleep some last night. Seroquel been increased to 50 mg at night. 12.5 mg a morning. Patient refused to eat today. Computed tomography scan is showing some obstruction of the left ureter. Being followed by urology. Patient was started on glyburide yesterday. March 13: Patient rather agitated this morning. When I saw the patient sitting up in a chair. Oral intake really able to. Had a sitter. Accu-Cheks on the higher side. On Glucotrol, Actos, metformin. Will DC Seroquel and to try the patient on Zyprexa. 2.5 mg daily at bedtime. Dr. daniels is planning to do a retrograde pyelogram and ureteral scope . He discussed with the patient's daughter. March 14: Patient is started on Zyprexa yesterday. Slept well last night. Pleasant this morning. Had about 50% of her breakfast. Will DC sitter. Pe nding intervention per urology March 15: Patient was seen this morning. Pleasant. Sitting with a window. Nothing by mouth for procedure this afternoon. Slept well. This afternoon patient was taken down to the OR. Bilateral ureteral stent placement. Left ureteral mass was encountered, and biopsies taken. March 16: Oral intake fair. Confused but comfortable. Did walk in the room. Accu-Cheks below 200. Increase Zyprexa to 5 mg daily at bedtime. Patient declined blood draw Active Medications Atorvastatin Calcium (Atorvastatin 20 Mg Tab) 20 mg PO HS [facility] Last Admin: 03/15/23 20:58 Dose: 20 mg Clonidine (Clonidine Hcl 0.1 Mg Tab) 0.1 mg PO BID [facility] Last Admin: 03/16/23 09:03 Dose: 0.1 mg Dextrose/Water (Dextrose 50% Syringe 50 Ml) 25 ml IVP PER PROTOCOL PRN; Protocol PRN Reason: Hypoglycemia Enoxaparin Sodium (Enoxaparin 30 Mg/0.3 Ml Syringe) 30 mg SQ [facility] Last Admin: 03/15/23 21:01 Dose: Not Given Glipizide (Glipizide 10 Mg Tab) 10 mg PO AC-BID [facility] Last Admin: 03/16/23 09:03 Dose: 10 mg Insulin Aspart (Insulin Aspart (Novolog) 100 Unit/Ml Vial) 0 unit SQ [facility]; Protocol Last Admin: 03/16/23 14:02 Dose: Not Given Lidocaine HCl (Lidocaine 1% (10mg/Ml) For Iv Start) 0.1 ml INTRADERMA PER PROTOCOL PRN PRN Reason: IV Start Metformin HCl (Metformin 500 Mg Tab) 1,000 mg PO DAILY [facility] Last Admin: 03/16/23 09:03 Dose: 1,000 mg Metformin HCl (Metformin 500 Mg Tab) 500 mg PO [facility] Last Admin: 03/15/23 20:59 Dose: 500 mg Multivitamins/Minerals (Vit A,C & J-Fdvvjk-Wvqwahmm 1 Each Tab) 1 each PO BID [facility] Last Admin: 03/16/23 09:04 Dose: 1 each Naloxone HCl (Naloxone 0.4 Mg/Ml 1 Ml Vial) 0.2 mg IV Q2M PRN PRN Reason: Opioid Reversal Nicotine (Nicotine 14mg/24hr Patch) 1 patch TRANSDERM DAILY [facility] Last Admin: 03/16/23 09:04 Dose: Not Given Olanzapine (Olanzapine 5 Mg Tab) 5 mg PO [facility] Ondansetron HCl (Ondansetron 4 Mg/2 Ml Vial) 4 mg IVP Q8HR PRN PRN Reason: Nausea And Vomiting Last Admin: 03/15/23 15:19 Dose: 4 mg Pioglitazone HCl (Pioglitazone 30 Mg Tab) 30 mg PO DAILY [facility] Last Admin: 03/16/23 09:04 Dose: 30 mg Past medical history to include: Cognitive impairment, diabetes, essential hypertension, hyperlipidemia, Social history: Smoker. Lives in independent i apartment Physical examination: VITAL SIGNS: 99, 80, 18, 153/64, 97% room air GENERAL: Comfortable EYES: Pupils equal. Conjunctiva normal. HEENT: External appearance of nose and ears normal, oral cavity grossly normal. NECK: JVD not raised; masses not palpable. HEART: First and second heart sounds are normal; no edema. LUNGS: Respiratory rate normal; diminished breath sounds. ABDOMEN: Soft, nontender, liver spleen not palpable, no masses palpable. PSYCH: She does answer some questions. Pleasantly confused MUSCULOSKELETAL:No Clubbing/cyanosis;muscles-grossly intact INVESTIGATIONS, reviewed in the clinical context: March 14: Potassium 4.8 BUN [address] without contrast: Severe bilateral hydronephrosis. There may be underlying lesion 3.8 x 1.3 cm within the mid ureter on the left side. Large stool burden. March 12: Potassium 5.2 BUN 38 creatinine 1.55 Renal ultrasound: Bilateral hydronephrosis, moderate to severe March 11: Potassium 4.9 BUN 38 creatinine 1.8 to HbA1c 11.9 March 09: White count 5.9 hemoglobin 11.7 platelets 274 sodium 132 potassium 4.7 BUN 44 creatinine 1.41 glucose 412 Serum acetone negative EKG tracing personally reviewed by me-normal sinus rhythm Chest x-ray film personally reviewed by me-hyperinflation Previous labs: January 2023 creatinine 1.33. November 2021 creatinine 0.7 to Assessment and plan: -Nonketotic hyperosmolar hyperglycemia: Better IV fluids. Glucotrol 10 mg twice a day. Actos 30 mg a day. Metformin. -Chronic nicotine dependence, cigarette smoker Nicotine patch -COPD in a current smoker Albuterol when necessary - severe bilateral hydronephrosis. being followed by urology -underlying lesion 3.8 x 1.3 cm within the mid ureter on the left side. Biopsy taken. -Essential hypertension Catapres 0.1 mg twice a day -Obstructive uropathy leading to chronic kidney disease.: Slow to respond Renal ultrasound shows bilateral hydronephrosis. Bilateral ureteral stent placed on March [address] daniels. -Severe Cognitive impairment. along with agitation: Stabilized Increase Zyprexa 5 mg at bedtime. Haldol when necessary -Diabetes mellitus type 2, on oral hypoglycemic, uncontrolled metformin. . Actos. Glucotrol -Hyperlipidemia Lipitor 20 -Full code Patient has a legal guardian Biopsy results pending. Increase Zyprexa to 5 mg at night. Other medications to continue. Repeat labs in the morning.
[2023-03-16] MEDS ORDERED: OLANZapine 5 MG TAB PO SCH (21:00)
[2023-03-16] MEDS ORDERED: HALOPERIDOL LACTATE 5 MG/ML 1 ML VIAL IM STA (21:16)
[2023-03-16 23:08] LABS: Glucose,Whole Blood 183 mg/dL (70-110)
[2023-03-16] MEDS: ATORVASTATIN 20 MG TAB PO SCH (23:11)
[2023-03-16] MEDS: ENOXAPARIN 30 MG/0.3 ML SYRINGE SQ SCH (23:33)
[2023-03-17] MEDS: glipiZIDE 10 MG TAB PO SCH (06:14)
[2023-03-17 06:15] LABS: Glucose,Whole Blood 130 mg/dL (70-110)
[2023-03-17] MEDS: INSULIN ASPART (NovoLOG) 100 UNIT/ML VIAL SQ SCH ×2 (06:15→12:31)
[2023-03-17 06:52] LABS: African American GFR (CKD) 37 (>60 ml/min/1.73 sqM); Anion Gap 6 mmol/L; Blood Urea Nitrogen 39 mg/dL (7-17); Calcium 9.6 mg/dL (8.4-10.2); Carbon Dioxide 29 mmol/L (22-30); Chloride 104 mmol/L (98-107); Glucose 113 mg/dL (74-99); Non-African American GFR(CKD) 32 (>60 ml/min/1.73 sqM); Potassium 4.2 mmol/L (3.5-5.1); Sodium 139 mmol/L (137-145)
[2023-03-17 08:14] VITALS: RESP 16
[2023-03-17] MEDS: NICOTINE 14MG/24HR PATCH TRANSDERM SCH (09:01)
[2023-03-17] MEDS: PIOGLITAZONE 30 MG TAB PO SCH (09:02)
[2023-03-17] MEDS: metFORMIN 500 MG TAB PO SCH (09:02)
[2023-03-17] MEDS: VIT A,C & E-LUTEIN-MINERALS 1 EACH TAB PO SCH (09:03)
[2023-03-17] MEDS: cloNIDine HCL 0.1 MG TAB PO SCH (09:03)
[2023-03-17 10:54] LABS: Glucose,Whole Blood 107 mg/dL (70-110)
--- NOTE | 2023-03-17 13:35 | P.DS ---
Providers Date of admission: 03/09/23 21:34 Expected date of discharge: 03/17/23 Attending physician: Jalil Mitchell Consults: 03/11/23 11:54 Consult Physician Routine Consulting Provider: Hugo Garcia Consult Reason/Comments: bilat hydronephrosis Do you want consulting provider notified?: Yes Primary care physician: [facility] Course: Chief Complaint: Elevated blood sugar This is a pleasant 67-year-old patient who follows a Dr. Amaya. Chronic stable medical conditions include diabetes, GERD, ALLERGY-induced asthma, kidney stones. Lives in an apartment. Has underlying cognitive impairment. Patient presented to ER with some confusion and high sugars. Blood glucose was 412. Negative for blood acetone. Patient is on oral hypoglycemic. It is unclear to the circumstances who brought the patient in order to send the patient to the ER. Patient cannot tell for herself. Patient is able to answer questions but not able to give any detailed answers. For example she does not know protocol to the hospital. It seems she does take her medications. Otherwise independent and active. But forgetful. Case management trying to get hold of guardian. Denies any fever and chills. No diarrhea. No pain. Is a smoker. March 11: Accu-Cheks remaining high. Glyburide added. Patient not a candidate for insulin. On IV fluids. Worsening of creatinine. Metformin stop. Actos started yesterday. Patient slept well last night with Seroquel. Patient will need a more supervised setting. March 12: Patient again was running about agitated yesterday evening. Sitter was ordered. Did sleep some last night. Seroquel been increased to 50 mg at night. 12.5 mg a morning. Patient refused to eat today. Computed tomography scan is showing some obstruction of the left ureter. Being followed by urology. Patient was started on glyburide yesterday. March 13: Patient rather agitated this morning. When I saw the patient sitting u p in a chair. Oral intake really able to. Had a sitter. Accu-Cheks on the higher side. On Glucotrol, Actos, metformin. Will DC Seroquel and to try the patient on Zyprexa. 2.5 mg daily at bedtime. Dr. garcia is planning to do a retrograde pyelogram and ureteral scope . He discussed with the patient's daughter. March 14: Patient is started on Zyprexa yesterday. Slept well last night. Pleasant this morning. Had about 50% of her breakfast. Will DC sitter. Pending intervention per urology March 15: Patient was seen this morning. Pleasant. Sitting with a window. Nothing by mouth for procedure this afternoon. Slept well. This afternoon patient was taken down to the OR. Bilateral ureteral stent placement. Left ureteral mass was encountered, and biopsies taken. March 16: Oral intake fair. Confused but comfortable. Did walk in the room. Accu-Cheks below 200. Increase Zyprexa to 5 mg daily at bedtime. Patient declined blood draw March 17: Pleasantly confused. Oral intake remains variable. Accu-Cheks acceptable. Biopsies results also pending. She will follow up with Dr. garcia outpatient. Patient has been accepted at rehab. Past medical history to include: Cognitive impairment, diabetes, essential hypertension, hyperlipidemia, Social history: Smoker. Lives in independent i apartment Physical examination: VITAL SIGNS: 97.8, 72, 16, 131/70, 99% room air GENERAL: Sitting at the edge of the bed. Comfortable. EYES: Pupils equal. Conjunctiva normal. HEENT: External appearance of nose and ears normal, oral cavity grossly normal. NECK: JVD not raised; masses not palpable. HEART: First and second heart sounds are normal; no edema. LUNGS: Respiratory rate normal; diminished breath sounds. ABDOMEN: Soft, nontender, liver spleen not palpable, no masses palpable. PSYCH: She does answer some questions. Pleasantly confused MUSCULOSKELETAL:No Clubbing/cyanosis;muscles-grossly intact INVESTIGATIONS, reviewed in the clinical context: March 17: Potassium 4.2 BUN 39 creatinine 1.61 March 14: Potassium 4.8 BUN [address] without contrast: Severe bilateral hydronephrosis. There may be underlying lesion 3.8 x 1.3 cm within the mid ureter on the left side. Large stool burden. March 12: Potassium 5.2 BUN 38 creatinine 1.55 Renal ultrasound: Bilateral hydronephrosis, moderate to severe March 11: Potassium 4.9 BUN 38 creatinine 1.8 to HbA1c 11.9 March 09: White count 5.9 hemoglobin 11.7 platelets 274 sodium 132 potassium 4.7 BUN 44 creatinine 1.41 glucose 412 Serum acetone negative EKG tracing personally reviewed by me-normal sinus rhythm Chest x-ray film personally reviewed by me-hyperinflation Previous labs: January 2023 creatinine 1.33. November 2021 creatinine 0.7 to Assessment and plan: -Nonketotic hyperosmolar hyperglycemia: Better IV fluids. Glucotrol 10 mg twice a day. Actos 30 mg a day. Metformin. -Chronic nicotine dependence, cigarette smoker Nicotine patch -COPD in a current smoker Albuterol when necessary - severe bilateral hydronephrosis. being followed by urology -underlying lesion 3.8 x 1.3 cm within the mid ureter on the left side. Biopsy taken. Follow up with Dr. garcia outpatient. -Essential hypertension Catapres 0.1 mg twice a day -Obstructive uropathy leading to chronic kidney disease.: Slow to respond Renal ultrasound shows bilateral hydronephrosis. Bilateral ureteral stent placed on March [address] garcia. -Severe Cognitive impairment. along with agitation: Stabilized Zyprexa 5 mg daily. -Diabetes mellitus type 2, on oral hypoglycemic, metformin. . Actos. Glucotrol -Hyperlipidemia Lipitor 20 -Full code Patient has a legal guardian-Ashley Disposition: [facility] Plan - Discharge Summary Discharge Rx Participant: No New Discharge Prescriptions: New Pioglitazone [Actos] 30 mg PO DAILY tab cloNIDine HCL [Catapres] 0.1 mg PO BID tab glipiZIDE [Glucotrol] 10 mg PO AC-BID tab Atorvastatin [Lipitor] 20 mg PO HS tab Nicotine 14Mg/24Hr Patch [Habitrol] 1 patch TRANSDERM DAILY patch INSULIN ASPART (NovoLOG) [NovoLOG (formulary)] 0 unit SQ ACHS each OLANZapine [ZyPREXA] 5 mg PO DAILY #1 tab Continue Vit C/E/Zn/Coppr/Lutein/Zeaxan [Preservision Areds 2 Softgel] 1 cap PO BID Changed metFORMIN HCL [Glucophage] 500 mg PO BID #0 Discontinued metFORMIN HCL [Glucophage] 500 mg PO HS Discharge Medication List Vit C/E/Zn/Coppr/Lutein/Zeaxan [Preservision Areds 2 Softgel] 1 cap PO BID 03/30/19 [History] Atorvastatin [Lipitor] 20 mg PO HS tab 03/17/23 [Rx] INSULIN ASPART (NovoLOG) [NovoLOG (formulary)] 0 unit SQ ACHS each 03/17/23 [Rx] Nicotine 14Mg/24Hr Patch [Habitrol] 1 patch TRANSDERM DAILY patch 03/17/23 [Rx] OLANZapine [ZyPREXA] 5 mg PO DAILY #1 tab 03/17/23 [Rx] Pioglitazone [Actos] 30 mg PO DAILY tab 03/17/23 [Rx] cloNIDine HCL [Catapres] 0.1 mg PO BID tab 03/17/23 [Rx] glipiZIDE [Glucotrol] 10 mg PO AC-BID tab 03/17/23 [Rx] metFORMIN HCL [Glucophage] 500 mg PO BID #0 03/17/23 [Rx] Follow up Appointment(s)/Referral(s): Tanner Amaya DO [Primary Care Provider] - 03/31/23 9:00 am Hugo Garcia MD [STAFF PHYSICIAN] - 1 Week (Office will call you with your appointment date and time.) Activity/Diet/Wound Care/Special Instructions: Reassure patient and her daughter that increased urinary frequency and hematuria are expected.
[2023-03-17 15:22] VITALS: BP 136/57; PULSE 89; TEMP 98.1
--- NOTE | 2023-03-18 15:25 | CDI ---
Documentation Clarification Form Date: 03/18/2023 03:13:30 PM From: Vivien Patel Phone: Admit Date: 03/09/2023 09:34:00 PM Patient Name: Jasmin Ariza Visit Number: [id number] Discharge Date: 03/17/2023 04:01:00 PM ATTENTION: The Clinical Documentation Specialists (CDI) and [facility] Coding Staff appreciate your assistance in clarifying documentation. Please respond to the clarification below the line at the bottom and electronically sign. The CDI & [facility] Coding staff will review the response and follow-up if needed. Please note: Queries are made part of the Legal Health Record. If you have any questions, please contact the author of this message via ITS. Dr. Jalil Mitchell Obstructive uropathy leading to chronic kidney disease per Progress Note 03/14/23. Additional clarification regarding the stage of CKD is requested. History/Risk Factors: 67yo F, Nonketotic hyperosmolarhyperglycemia, smoker, COPD, HTN, HLD, severebilateral hydronephrosis, lesionmid LT ureter, obstructive uropathy, ALEXA dementia w Clinical Indicators: Current BUN/CR/GFR: Blood Urea Nitrogen: 03/11 38 03/12 38 03/17 39 GFR: 03/11 32 03/12 39 03/17 37 Non- GFR 03/11 28 03/12 34 03/17 32 Creatinine: 1.82 03/11 03/12 1.55 03/14 1.7 03/17 1.61 Treatment: Slow to respond renal ultrasoundshowsbilateral hydronephrosis. Bilateral ureteral stent placedon March [address] Garcia Please clarify the stage of the CKD, if known: [ + ] CKD Stage 3b (GFR 30-44) [ ] CKD Stage 4 (GFR 15-29) [ ] Other, please specify [ ] Unable to determine (Template Last revised: November 2020) MTDD
== END 2023-03-17 16:01 | DRG 988 ==
LOC: EC 17:20 → EEVIPCON 21:34 → 4SSUR 21:34
PROVIDERS: ADMIT Hospitalist; ATTEND Hospitalist
PROC: 0T788DZ Dilation of Bilateral Ureters with Intraluminal Device, Via Natural or Artificial Opening Endoscopic (ICD-10-PCS; principal; 2023-03-15 15:40)
PROC: BT141ZZ Fluoroscopy of Kidneys, Ureters and Bladder using Low Osmolar Contrast (ICD-10-PCS; 2023-03-15 15:40)
PROC: 0TBD8ZX Excision of Urethra, Via Natural or Artificial Opening Endoscopic, Diagnostic (ICD-10-PCS; 2023-03-15 15:40)
DX: E11.00 Type 2 diabetes mellitus with hyperosmolarity without nonketotic hyperglycemic-hyperosmolar coma (NKHHC) (principal); F03.911 Unspecified dementia, unspecified severity, with agitation; N17.9 Acute kidney failure, unspecified; N13.1 Hydronephrosis with ureteral stricture, not elsewhere classified; E11.22 Type 2 diabetes mellitus with diabetic chronic kidney disease; I12.9 Hypertensive chronic kidney disease with stage 1 through stage 4 chronic kidney disease, or unspecified chronic kidney disease; E11.65 Type 2 diabetes mellitus with hyperglycemia; J44.9 Chronic obstructive pulmonary disease, unspecified; F17.210 Nicotine dependence, cigarettes, uncomplicated; K21.9 Gastro-esophageal reflux disease without esophagitis; N18.32 Chronic kidney disease, stage 3b; R53.81 Other malaise; N36.8 Other specified disorders of urethra; E78.5 Hyperlipidemia, unspecified; Z88.1 Allergy status to other antibiotic agents; Z28.311 Partially vaccinated for COVID-19; Z83.3 Family history of diabetes mellitus; Z79.899 Other long term (current) drug therapy; Z79.84 Long term (current) use of oral hypoglycemic drugs; Z87.442 Personal history of urinary calculi
CPT/HCPCS: 36415; 71046; 74150; 74420; 76770; 80048; 80053; 81001; 82009; 83036; 83735; 84100; 85025; 88108; 88305; 93005; 94760; 96360; 96361; 99285